=== PATIENT | male | born 1975 | race Two or more races ===

== ENCOUNTER 2024-01-24 12:04 | Inpatient (IN) | payer OTHER, MEDICAID, MEDICARE, SELFPAY ==
[2024-01-24] VITALS (11 sets, daily range): BP systolic 127–165; BP diastolic 42–101; PULSE 60–72; RESP 12–20; TEMP 36.7–36.9; O2SAT 95–100; BMI 30.8; BMI 30.4
--- NOTE | 2024-01-24 | XR_ITS ---
Examination: Central line placement, triple lumen catheter. Ultrasound-guided needle placement left internal jugular vein. Fluoroscopy AP Chest, portable single view Exam date and time: January 24, 2024 1513 hours INDICATIONS: Need for long-term intravenous antibiotic therapy for osteomyelitis. Informed consent provided Technique: A timeout was completed, verifying correct patient, procedure, site, positioning, and special equipment if applicable The patient was placed in a dependent position appropriate for central line placement based on the vein to be cannulated. The patient's left neck was prepped and draped in sterile fashion. Maximum Sterile Barrier Technique used including cap, mask, sterile gown, sterile gloves, and sterile full body drape. If ultrasound technique used: sterile gel and sterile probe covers. Hand Hygiene performed using proper scrub, soap and water, or alcohol-based hand rub. Site right portable apparatus utilized to confirm patency of the left internal jugular vein Utilizing ultrasonographic guidance successful 21-gauge needle puncture into the left internal jugular vein Ultrasound images were recorded and stored. Successful micropuncture with a 21-gauge needle was performed. 0.18 wire guide was introduced into the IVC under fluoroscopic guidance. The wires is then exchanged for a 0.25 J-wire guide placed in the vena cava. The triple lumen catheter dilator is introduced, followed by the catheter in the SVC in proper position under fluoroscopic guidance. Successful aspiration of blood and flushing with heparinized saline is then performed in the 3 venous limbs. The catheter is sutured in place to the skin and a sterile dressing applied. Perfusion to the extremity distal to the point of catheter insertion was checked and found to be adequate The attending radiologist was present for the entire procedure Estimated blood loss2 cc. Findings: Under fluoroscopy, the tip of the catheter is in good position in the vena cava. Portable chest x-ray, post line placement, as ordered. Impression: Successful ultrasound-guided needle placement left internal jugular vein. Successful placement of triple lumen catheter central line, percutaneous. Fluoroscopy 0.2 minute radiation dose 3.41 milligray, 1 spot fluoroscopic chest film. AP portable chest completion procedure demonstrates satisfactory position central line tip SVC. May use central line.
--- NOTE | 2024-01-24 | XR_ITS ---
Examination: Ultrasound-guided needle placement right basilic vein. Dual-lumen central line placement (PICC line) incomplete Fluoroscopy AP chest, portable, single view Right upper extremity venogram Exam date and time:January 24, 2024 1401 hours A timeout was completed verifying correct patient, procedure, site, positioning Informed consent provided Technique: The patient's site was prepped and draped in sterile fashion. Maximum Sterile Barrier Technique used including cap, mask, sterile gown, sterile gloves, and sterile full body drape. If ultrasound technique used: sterile gel and sterile probe covers. Hand Hygiene performed using proper scrub, soap and water, or alcohol-based hand rub. Site right portable apparatus utilized to confirm patency of the right brachial vein Utilizing ultrasonographic guidance successful micropuncture into the right brachial vein. Ultrasound images recorded and stored. 5 cc 1% lidocaine administered for local anesthetic. Successful micropuncture with a 21-gauge needle is performed. 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
--- NOTE | 2024-01-24 12:17 | XR_ITS ---
Examination: Foot, left, 3 views Technique: AP, oblique, lateral views foot, 3 views Date and time of exam: January 24, 2024 at 1233 hours INDICATIONS: Redness swelling and pain involving the first and fifth digits left foot beginning 2 weeks ago, diabetic FINDINGS: Cortical bone destruction and fracture involving the base of the distal phalanx first digit Soft tissue vascular calcification Prominent osteopenia Old fracture calcaneus postop reduction internal fixation IMPRESSION: Osteomyelitis distal phalanx first digit with pathologic fracture, consider MRI foot without contrast follow-up to assess full extent of osteomyelitis
[2024-01-24 12:41] LABS: Basophils # (Auto) 0.1 Thou/mm3 (0.0-0.2); Basophils % (Auto) 1 % (0-2.5); Eosinophils # (Auto) 0.1 Thou/mm3 (0.0-0.5); Eosinophils % (Auto) 1 % (0-10); Hematocrit 46.1 % (41.0-53.0); Hemoglobin 15.1 g/dL (13.5-16.0); Immature Granulocytes % (Auto) 1 % (0-0); Immature Granulocytes Auto 0.05 Thou/mm3 (0.00-0.00); Lymphocytes # (Auto) 1.2 Thou/mm3 (1.0-4.8); Lymphocytes % (Auto) 11 % (10-50); Mean Corpuscular HGB Conc 32.8 g/dl (31.0-37.0); Mean Corpuscular Hemoglobin 26.6 pg (25.0-35.0); Mean Corpuscular Volume 81 fL (80-100); Monocytes # (Auto) 0.8 Thou/mm3 (0.0-0.8); Monocytes % (Auto) 7 % (0-12); Neutrophils # (Auto) 8.9 Thou/mm3 (1.8-7.7); Neutrophils % (Auto) 80 % (37-80); Nucleated Red Blood Cell % 0 /100 WBC (0); Platelet Count 257 Thou/mm3 (140-440); RDW Standard Deviation 39.3 fL (35.1-43.9); Red Blood Count 5.68 Miln/mm3 (4.50-5.90); White Blood Count 11.1 Thou/mm3 (3.8-10.6)
[2024-01-24 12:58] LABS: Alanine Aminotransferase 15 U/L (10-49); Albumin, Serum 4.8 gm/dL (3.5-5.0); Albumin/Globulin Ratio 1.8 (1.2-2.2); Alkaline Phosphatase 88 U/L (46-116); Anion Gap 6 (7-16); Aspartate Amino Transferase 14 U/L (0-34); BUN/Creatinine Ratio 18 Ratio (12-20); Bilirubin,Total 0.4 mg/dL (0.3-1.2); Blood Urea Nitrogen 23 mg/dL (9-23); C-Reactive Protein 1.1 mg/dL (0.0-0.9); Calcium 10.8 mg/dL (8.3-10.6); Calcium (Corrected) 10.8 mg/dL (8.5-10.1); Carbon Dioxide 25.1 mMol/L (20.0-31.0); Chloride 103 mMol/L (98-107); Creatinine (Component) 1.3 mg/dL (0.6-1.3); Estimated Creatinine Clearance 93.3 mL/min (>60); Globulin 2.7 gm/dL (2.3-3.5); Glucose 228 mg/dL (74-106); Osmolality,Calculated 278 (275-295); Potassium 4.2 mMol/L (3.4-5.1); Sodium 134 mMol/L (136-145); Total Protein 7.5 gm/dL (5.7-8.2); eGFR > 60 See Note
--- NOTE | 2024-01-24 13:10 | EDNOTE_ITS ---
Lower Extremity Injury RME/HPI General Chief Complaint: Ankle/Foot Injury Stated Complaint: OSTEOMYELITIS Time Seen by Provider: 01/24/24 12:13 Source: patient and family Arrival date/time: 01/24/24 12:04 This is a 48-year-old male significant past medical history of diabetes, hypertension, chronic kidney disease with a kidney transplant in 2019. Currently not on dialysis. Presents to the emergency department for complaints of redness and swelling and pain involving his first digit of his left foot for approximately 2 weeks. He was sent over by his PCP for possible osteomyelitis which will require admission, for IV treatment. Patient was treated with outpatient antibiotics, without success. He did have a MRI completed on 01/14/2024 describing osteomyelitis to the first phalanx of left foot. Patient reports no fever no chills. Mode of arrival: ambulatory Related Data Home Medications ?Medication ?Instructions ?Recorded ?Confirmed sevelamer carbonate 800 mg tablet 3 tab PO TIDWM #0 tabs 10/12/16 11/15/20 (Renvela) clonidine HCl 0.3 mg tablet 0.3 mg PO TID High Blood Pressure 11/04/16 11/15/20 #0 tabs hydralazine 100 mg tablet 100 mg PO TID High Blood Pressure 11/04/16 11/15/20 #0 tabs hydrocodone 10 mg-acetaminophen 1 tab PO TID PRN Back Pain #0 tabs 11/04/16 11/15/20 325 mg tablet lactulose 10 gram/15 mL oral 30 ml PO HS PRN CONSTIPATION ##180 11/04/16 11/15/20 solution alprazolam 2 mg tablet 0.5 mg PO BID 05/15/18 11/15/20 amlodipine 10 mg tablet 10 mg PO QDAY 08/07/19 11/15/20 Allergies Allergy/AdvReac Type Severity Reaction Status Date / Time atenolol Allergy Severe SWELLING Verified 11/15/20 15:58 FACE AND HANDS, UNCONTROLLED COUGH ibuprofen Allergy Severe RASH, DIZZY Verified 11/15/20 15:58 lisinopril Allergy Severe SWELLING Verified 11/15/20 15:58 IN FACE AND HANDS chlorhexidine AdvReac Mild Rash Verified 11/15/20 15:58 Review of Systems Review of Systems Systems Reviewed: All systems reviewed, normal except as documented Narrative Review of Systems: Gen: No fever, no chills, no weight loss EYES: No discharge, no visual changes, no pain HEENT: No ear pain, no congestion, no sore throat PULM: No shortness of breath, no cough, no congestion CV: No chest pain, no dyspnea on exertion, no palpitations GI: No nausea, no vomiting, no diarrhea, no pain, no constipation : No frequency, no urgency,? no dysuria Musc/skel: No joint pain, no back pain Skin: No rash?, + chronic wound and infection to left great toe. ED Exam Narrative Physical exam: GENERAL APPEARANCE: AxOx4, no obvious distress, nontoxic appearing HEENT: NC, AT. MMM. EOMI, clear conjunctiva,right eye appear to blind, oropharynx clear. NECK: Supple without lymphadenopathy. No stiffness or restricted ROM. HEART: Normal rate and regular rhythm, normal S1/S1, no m/r/g LUNGS: CTAB, moving air well. No crackles or wheezes are heard. ABDOMEN: Soft, nontender, nondistended with good bowel sounds heard. BACK: No midline C/T/L spine pain or deformity, No CVAT, no obvious deformity. EXTREMITIES: Foot is held in plantar felxion, mildly able to flex, -Left great toe, erythema and swelling. MUSCULOSKELETAL: FROM of all major joints, no chest tenderness. NEUROLOGICAL: Grossly nonfocal. Alert and oriented, moving all 4 extremities. Ambulatory. CN not formally tested but appear grossly intact. Skin: Warm and dry without any rash. Course Quality Measures none Orders Category Date Time Status COVID-19 Screening Questionnaire NOW Care 01/24/24 13:26 Active COVID-19 Screening Questionnaire NOW Care 01/24/24 15:14 Active Central Line Insertion NOW Care 01/24/24 15:14 Active Decision to Admit X1 Care 01/24/24 13:26 Active Decision to Admit X1 Care 01/24/24 15:14 Active Insert IV NOW Care 01/24/24 13:08 Active Consult to Infectious Diseases Stat Cons 01/24/24 13:43 Ordered IR PICC line insertion Stat Exams 01/24/24 Taken XR foot comp LT min 3V Stat Exams 01/24/24 12:17 Completed Blood Culture (Lab) Stat Lab 01/24/24 12:30 Received CBC Stat Lab 01/24/24 12:33 Results CMP [Comprehensive Metabolic Panel] Stat Lab 01/24/24 12:33 Completed CRP [C-Reactive Protein] Stat Lab 01/24/24 12:33 Completed Sed Rate (ESR) Stat Lab 01/24/24 12:33 Results Heparin Sod Lock Syr [Hep-Lock 100 UNIT/ML SYR] Med 01/24/24 14:41 Discontinued 500 unit .ROUTE .STK-MED ONE Lidocaine 1% Pf 30 ml [Xylocaine 1% Pf 30 ml] Med 01/24/24 14:41 Discontinued 30 ml .ROUTE .STK-MED ONE Vital Signs Vital signs: Vital Signs Temperature 98.4 F 01/24/24 12:12 Pulse Rate 67 01/24/24 12:12 Respiratory Rate 16 01/24/24 12:12 Blood Pressure 129/65 01/24/24 12:12 Pulse Oximetry (%) 95 01/24/24 12:12 Oxygen Delivery Method Room Air 01/24/24 12:12 Extremity Injury, Lower MDM Narrative MDM Narrative:: This is a 48-year-old male significant past medical history of diabetes, hypertension, chronic kidney disease with a kidney transplant in 2019, currently on immunosuppressant therapy. Presents to the emergency department for complaints of redness and swelling and pain involving his first digit of his left foot for approximately 2 weeks. He was sent over by his PCP for possible osteomyelitis which will require admission, for IV treatment. Patient was treated with outpatient antibiotics, without success. He did have a MRI completed on 01/14/2024 describing osteomyelitis to the first phalanx of left foot. patient reports no fever no chills. Patient labs reviewed BUN and creatinine normal. Mild leukocytosis. Patient's x-rays demonstrates osteomyelitis again. No MRI ordered today Case was discussed with Denae, Case and imaging discussed possible admission for IV antibiotics due to osteomyelitis. After great discussion 1345 we discussed that we will order a PICC line insertion through IR, and a consult with Dr Block infectious disease. Potential discharge if PICC line is inserted and Dr Block agrees. 1500- Dr Block called awaiting for call -Spoke with Dr. Oquendo and recommends doxycycline and Rocephin up to 2 g IV. 1516-received a call from the IR department unable to insert PICC line. Central line-ordered Spoke with Denae, who will accept patient for admission now. Patient data External records reviewed:: [facility] previous records Clinical information provided by:: patient Social determinants that could affect healthcare access:: none Patient has the following chronic illnesses:: Chronic diabetes, chronic kidney disease, gastroparesis, How is presenting disease/condition affected by chronic disease/condition?: exacerbated by Evaluation data The following diagnostics were reviewed and interpreted by me:: lab results and radiology exam(s) Lab and/or radiology exams considered but not ordered:: yes, consider MRI today however patient had MRI done on 01/14/2024 Interpretation Summary: Examination: Foot, left, 3 views Technique: AP, oblique, lateral views foot, 3 views Date and time of exam: January 24, 2024 at 1233 hours INDICATIONS: Redness swelling and pain involving the first and fifth digits left foot beginning 2 weeks ago, diabetic FINDINGS: Cortical bone destruction and fracture involving the base of the distal phalanx first digit Soft tissue vascular calcification Prominent osteopenia Old fracture calcaneus postop reduction internal fixation IMPRESSION: Osteomyelitis distal phalanx first digit with pathologic fracture, consider MRI foot without contrast follow-up to assess full extent of osteomyelitis Examination: MRI left foot, without contrast Date and time of exam: January 13, 2024 at 1214 hrs. Indications: Nonhealing wound right foot dorsal surface second toe nailbed first toe one week diabetes Technique: Multiple axial sagittal and coronal images of the left foot have been obtained with the Siemens high-resolution 1.5 Mery MRI scanner. Images obtained include T2-weighted fat-suppressed sagittal sections, TR 3500, TE 46, T2 weighted coronal fat suppressed images, TR 3050, TE 84, T2-weighted transverse fat suppressed images, TR 3260, TE 63, proton density transverse images, TR 4720 TE 46, and T1 weighted coronal images, TR 560, TE 13. Findings: Cortical bone destruction dorsal base distal phalanx first digit sagittal image 8 with adjacent soft tissue infection Remaining digits intact No soft tissue abscess Extensor flexor tendons intact Impression: Osteomyelitis base distal phalanx first digit Medications / Prescriptions Medications or Prescriptions considered but not ordered:: yes Medication administrations:: Medication Administration History Discontinued Medications Heparin Sodium (Beef Lung) (Heparin Sod Lock Syr 100 Unit/Ml) Confirm Administered Dose 500 unit .ROUTE .STK-MED ONE Stop: 01/24/24 14:42 Lidocaine HCl (Lidocaine Inj Pf 1% 30 Ml Vial) Confirm Administered Dose 30 ml .ROUTE .STK-MED ONE Stop: 01/24/24 14:42 yes Consultations Consultation(s) initiated? (list below): Yes Diagnosis Extremity Injury, Lower Differential Diagnosis: ankle sprain and strain, fracture of femur and other Most likely diagnosis given after review of the tests above:: Osteomyelitis left great toe Admission Indicated Admission indicated?: indicated Admission Request Was there a request for admission?: Yes Admission Attestation Admission request attestation: see above Disposition Plan Disposition Plan: Admit Discharge Plan Plan Patient Disposition: Admit Acute Care w/in Hospital Patient condition on transfer: Stable Prescriptions/Referrals Prescriptions/Med Rec: No Action sevelamer carbonate [Renvela] 800 MG tablet 3 tab PO TIDWM Qty: 0 clonidine HCl 0.3 MG tablet 0.3 mg PO TID Qty: 0 hydralazine 100 mg Tablet 100 mg PO TID Qty: 0 hydrocodone-acetaminophen 10-325 mg Tablet 1 tab PO TID PRN (Reason: Back Pain) Qty: 0 lactulose 10 G/15 ML solution 30 ml PO HS PRN (Reason: CONSTIPATION) Qty: 180 alprazolam 2 mg Tablet 0.5 mg PO BID amlodipine 10 mg Tablet 10 mg PO QDAY Referrals: Silviano Linares MD [Primary Care Provider] - In 1 week Problem List Clinical Impression: Acute osteomyelitis of toe of left foot Patient/Caregiver Discharge Instructions Discharge Activity: activity as tolerated Print Language: Croatian Stand Alone Forms: [employer] Award Info., Patient Portal Info Letter PA/EMERGENCY DEPARTMENT RN Supervising Physician PA/EMERGENCY DEPARTMENT RN Supervising Physician: Dr Cheney
[2024-01-24] MEDS: HEPARIN SOD LOCK SYR 100 UNIT/ML 500 UNIT IV (14:57)
[2024-01-24] MEDS: LIDOCAINE INJ PF 1% 30 ML VIAL 8 ML INFL (15:40)
--- NOTE | 2024-01-24 16:00 | PC.NURSE ---
hand off report give to lilli brumfield. patient alert and oriented [id number]. transfered back to er room 16 via [facility]. dressing is clean dry and intact.
[2024-01-24 16:21] LABS: Sed Rate (ESR) 25 mm/hr (0-15)
--- NOTE | 2024-01-24 16:23 | ESHP_ITS ---
<Statement entered by Vargas Philippe MD - 01/24/24 17:21> Senior Resident Attestation: I supervised/discussed management plan with legal summer intern physician Dr. Bryant, and was involved in the care of this patient. I personally saw and examined the patient and discussed the assessment and plan with the entire medicine team, including my attending. I agree with the assessment and plan as documented. Patient's care was discussed with attending physician, Dr. Nash. Vargas Philippe MD PGY-2. 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 On assessment patient stated that he started having an open wound on his second left toe since 2 weeks ago and he was placed on antibiotics as outpatient, but these failed. Patient stated he has not had any fevers, chills, nausea, vomiting, shortness of breath, or sweats. Given patient's failed outpatient antibiotics as well as his immunocompromise status given immunosuppressants patient will require IV antibiotics. Of note, patient was going to have a PICC line inserted and ID consult for outpatient IV antibiotics, but on PICC line insertion the right subclavian vein was occluded therefore they could not place the PICC line on the right side and eventually central line was placed on the left side. ED course: Initially came in afebrile and normotensive. Initial labs were relevant for mild leukocytosis, hyperglycemia, and elevated CRP. Initial imaging included left foot x-ray which showed osteomyelitis of distal phalanx first digit with pathological fracture. PMH: As above Surgical Hx: Right BKA, cholecystectomy, right kidney transplant, left Achilles tendon repair with screw, right eye prosthetic Social Hx: Denies any alcohol, smoking, or drugs Allergies: Ibuprofen atenolol Meds: Prednisone 5 mg daily, tacrolimus 1.5 mg in the morning and 2 mg at night, mycophenolate 750 mg twice daily, clonidine 0.1 mg 3 times daily, hydralazine 100 mg 3 times daily, carvedilol 25 mg twice daily, nifedipine 90 mg daily, and NovoLog as per patient. Reconciliation pending Review of Systems Review of Systems Narrative Review of Systems: Constitutional: Denies sweats, Denies weight loss/gain, Denies fever, Denies chills. HEENT: Denies hearing loss, Denies ear pain, Denies postnasal drip, Denies double vision, Denies blurry vision. Respiratory: Denies shortness of breath, Denies cough, Denies wheezing. Cardiovascular: Denies chest pain, Denies palpitations, Denies sudden loss of consciousness. GI: Denies blood in stool, Denies constipation, Denies abdominal pain, Denies difficulty swallowing, Denies nausea or vomit. : Denies urinary incontinence, Denies pain while urinating, Denies increased urinary frequency. MSK: Denies joint pain, Admits joint swelling, Denies numbness. Skin: Denies rash, Denies itching, Denies easy bruising. Neuro: Denies headaches, Denies dizziness, Denies seizures. Past Medical History Past Medical History NEUROLOGIC: Positive Migraine CARDIAC: Positive Cardiac Disorders and Hypertension RESPIRATORY: Positive Sleep Apnea GASTROINTESTINAL: Positive Gastrointestinal Disorders, Pancreatitis, Gall Bladder Disease, Gastrointestinal Bleed and Gastroesophageal Reflux Disease GENITOURINARY: Positive Genitourinary Disorders, Renal Disease and Dialysis MUSCULOSKELETAL: Positive Musculoskeletal Disorders, Muscular Dystrophy, Arthritis, Scoliosis and Osteomyelitis ENT: Positive Glaucoma, Blind and Eye Prosthesis ENDOCRINE: Positive Endocrine Disorders and Diabetes Mellitus Type 2 HEMATOLOGIC: Positive Blood Disorders and Anemia PSYCHO/SOCIAL: Positive Depression and Anxiety OTHER HISTORY: Positive Hospitalization and Chicken Pox Family History FAMILY HISTORY: Positive Family Cardiac Disorders Surgical History SURGICAL: Positive Amputation Social History SMOKING STATUS: Never smoker SECOND HAND EXPOSURE: No SUBSTANCE USE: does not use Exam Vital Signs Temp Pulse Resp BP Pulse Ox O2 Del Method O2 Flow Rate 98.0 F 60 19 133/42 H 96 Room Air 3 01/24/24 14:36 01/24/24 15:49 01/24/24 15:49 01/24/24 15:49 01/24/24 15:49 01/24/24 15:49 01/24/24 15:40 Narrative Exam General: A/O x3, no acute distress, well-nourished, well-developed Eyes: R prosthetic eye, L eye reactive to light, EOMI, vision grossly intact. Ears: No ear pain, no ear discharge, Hearing grossly intact. Nose: No nasal discharge. Mouth/Throat: Dry mucous membranes, no redness, no lesions. Neck: Neck supple, non-tender, no cervical lymphadenopathy. Lungs: Clear JUSTINE to auscultation and percussion, No accessory muscle use. Cardio: Normal S1/S2, regular rhythm, no murmurs, no JVD. Abdomen: Soft, non-tender, no palpable masses, peristalsis present, no guarding or rebound. Extremities: R BKA, no peripheral edema , non-tender, L peripheral pulse present. L 1 toe swollen and discolored, L 2nd toe with dry wound in dorsal aspect. Skin: No rashes, no lesions, warm to touch. Neuro: No focal neurological deficits. motor and sensory intact. Psych: Cooperative, appropriate mood and effect. Results: Labs 01/25/24 04:59 01/25/24 04:59 Labs: Short CBC 01/24/24 Range/Units 12:33 WBC 11.1 H (3.8-10.6) Thou/mm3 Hgb 15.1 (13.5-16.0) g/dL Hct 46.1 (41.0-53.0) % Plt Count 257 (140-440) Thou/mm3 BMP 01/24/24 12:33 Sodium 134 L Potassium 4.2 Chloride 103 Carbon Dioxide 25.1 BUN 23 Creatinine 1.3 Glucose 228 H Calcium 10.8 H Liver Function 01/24/24 Range/Units 12:33 Total Bilirubin 0.4 (0.3-1.2) mg/dL AST 14 (0-34) U/L ALT 15 (10-49) U/L Alkaline Phosphatase 88 (46-116) U/L Albumin 4.8 (3.5-5.0) gm/dL Quality Measures Quality Measures none Medications Home Medications and Allergies Home Medications ?Medication ?Instructions ?Recorded ?Confirmed ?Type clonidine HCl 0.3 mg tablet 0.1 mg PO TID High Blood Pressure 11/04/16 01/24/24 History #0 tabs hydralazine 100 mg tablet 50 mg PO TID High Blood Pressure 11/04/16 01/24/24 History #0 tabs hydrocodone 10 mg-acetaminophen 1 tab PO TID PRN Back Pain #0 tabs 11/04/16 01/24/24 History 325 mg tablet alprazolam 0.5 mg tablet 0.5 mg PO TID PRN Anxiety 01/24/24 01/24/24 History carvedilol 25 mg tablet 25 mg PO BID 01/24/24 01/24/24 History mycophenolate mofetil 250 mg 250 mg PO BID 01/24/24 01/24/24 History capsule nifedipine 90 mg tablet,extended 90 mg PO QDAY 01/24/24 01/24/24 History release prednisone 5 mg tablet 5 mg PO QDAY 01/24/24 01/24/24 History tacrolimus 0.5 mg capsule, 0.5 mg PO QDAY 01/24/24 01/24/24 History immediate-release tacrolimus 1 mg capsule, 1 mg PO BID 01/24/24 01/24/24 History immediate-release Allergies Allergy/AdvReac Type Severity Reaction Status Date / Time atenolol Allergy Severe SWELLING Verified 11/15/20 15:58 FACE AND HANDS, UNCONTROLLED COUGH ibuprofen Allergy Severe RASH, DIZZY Verified 11/15/20 15:58 lisinopril Allergy Severe SWELLING Verified 11/15/20 15:58 IN FACE AND HANDS chlorhexidine AdvReac Mild Rash Verified 11/15/20 15:58 Visit Medications Acetaminophen (Acetaminophen 325 Mg Tablet) 650 mg PO Q6H PRN PRN Reason: Fever >101.5 Stop: 02/23/24 15:44 Acetaminophen (Acetaminophen 325 Mg Tablet) 650 mg PO Q6H PRN PRN Reason: PAIN SCALE 1-3 (mild Stop: 02/23/24 15:44 Hydrocodone Bitart/Acetaminophen (Hydrocodone/Apap 5/325 Tablet) 1 tab PO Q4HR PRN PRN Reason: PAIN SCALE 4-6 (Moderate Stop: 01/29/24 15:44 Dextrose (Dextrose 50%-Water Inj 50 Ml Syringe) 25 ml IV Q15MIN PRN PRN Reason: BG 50-70 responsive npo pt Stop: 02/23/24 15:50 Dextrose (Dextrose 50%-Water Inj 50 Ml Syringe) 50 ml IV Q15MIN PRN PRN Reason: BG <50 OR BG <70 & pt unresponsive Stop: 02/23/24 15:50 Doxycycline Hyclate (Doxycycline 100 Mg Tablet) 100 mg PO BID DIO Stop: 01/31/24 15:59 Glucagon (Glucagon Inj 1 Mg Vial) 1 mg IM Q15MIN PRN PRN Reason: BG <70, and no IV access Heparin Sodium (Porcine) (Heparin Sod Inj 5000 Unit/Ml Vial) 5,000 unit SC Q12H [facility] Stop: 02/07/24 15:44 Ceftriaxone Sodium/Dextrose (Rocephin/D5w 1gm Iv Premix) 50 mls @ 100 mls/hr IV QDAY DIO Stop: 01/31/24 15:47 Insulin Human Lispro (Insulin Lispro (Admelog) 1 Unit/0.01 Ml Unit) 0 unit SC ACHS DIO; Protocol Stop: 02/23/24 16:59 Discontinued Medications Heparin Sodium (Beef Lung) (Heparin Sod Lock Syr 100 Unit/Ml) 500 unit IV X1 ONE Stop: 01/24/24 14:31 Last Admin: 01/24/24 14:57 Dose: 500 unit Lidocaine HCl (Lidocaine Inj Pf 1% 30 Ml Vial) 8 ml INFL X1 ONE Stop: 01/24/24 14:31 Last Admin: 01/24/24 15:40 Dose: 8 ml Assessment & Plan Plan 48-year-old male with past medical history of right eye glaucoma s/p prosthetic eye, DM2, hypertension, 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 #Osteomyelitis of distal phalanx of first digit left foot, failed outpatient antibiotics #Diabetic foot #Leukocytosis #Hx DM 2 #Hx right BKA secondary to osteomyelitis of right foot ?Patient has been experiencing an open wound on his left second toe and swelling and redness in his first left toe as well for the past 2 weeks. ?Patient failed outpatient antibiotics ?Left foot x-ray showed osteomyelitis of distal phalanx of first digit ?WBC 11.1 ?L central line in place Plan: ?Continue ceftriaxone 1 g daily and doxycycline 100 mg twice daily [01/24/2024?] ?Blood cultures ordered ?ISS ?Accu-Cheks and hypoglycemia protocol ordered ?ID consulted, appreciate recommendations ?Will consider consulting general surgery ?Will continue to monitor #CKD s/p right kidney transplant #Hx of right kidney transplant #Immunocompromised ?Patient has a history of CKD status post kidney transplant 2019 ?Patient is on immunosuppressive therapy therefore he is immunocompromise Plan: ?Will restart patient's immunosuppressive therapy including prednisone 5 mg daily, tacrolimus 1.5 mg a.m. and 2 mg at bedtime, and mycophenolate 750 twice daily ?Avoid nephrotoxic agents ?Renally dose medications ?Nephrology consulted, appreciate recommendations ?Will continue to monitor #Hx of hypertension ?Patient blood pressure on admission was mildly elevated at 155/86 Plan: ?Will restart patient's home medications including clonidine 0.1 mg 3 times daily, hydralazine 100 mg 3 times daily, carvedilol 25 mg twice daily, nifedipine 90 mg daily. #Hx of glaucoma s/p prosthetic eye ?Patient's right eye is prosthetic eye Disposition: Patient admitted to telemetry. Diet: renal carb consistent low GI prophylaxis:not indicated DVT prophylaxis: heparin sc Code: Full code Case disclosed with Attending Dr. Nash and My senior Dr. Philippe PGY2. Leo Anderson PGY1 Attending Provider Attestation/Addendum 48-year-old male with type 2 diabetes mellitus, hypertension, hyperlipidemia right BKA, CKD status post kidney transplant back in 2019 on immunosuppressive agents who presented to the ER on 01/24/2024 from primary care physician for left toe swelling found to have osteomyelitis plan to line placement and IV antibiotic therapy. Will also consult infectious disease. I reviewed above note and agree with findings and plans. I have also personally examined the patient with medicine team and went over assessment and plan with medical team including legal summer intern and resident physician.
--- NOTE | 2024-01-24 17:48 | PC.CC ---
Patient is a 48 year-old male who presents to the hospital for osteomyelitis. Betty SORIANO made face to face contact with the patient. ASW introduced self, role, and reason for visit. Patient appeared alert and oriented to self, location, and situation. Patient was pleasant and engaged in assessment. Patient confirmed information on demographics and reports he lives at home with his daughter, Jose Jane . Patient reports prior to being admitted to the hospital he was able to complete his own ADLs and Ambulate Independently with the assistance of his boot. Patient reports he does not use any other DME. Per patient, his daughter is his primary retail wireless sales representative that helps take care of him. Patient receives primary care with Dr. Linares and uses [facility] for his prescription medication. Upon discharge patient plans to return home with his daughter. manager field services to remain available for any discharge needs.
[2024-01-24] MEDS: cefTRIAXone/D5w 1gm IV premix 50 ML IV (18:19)
[2024-01-24] MEDS: DOXYCYCLINE 100 MG TABLET PO (18:22)
[2024-01-24] MEDS: HEPARIN SOD INJ 5000 UNIT/ML VIAL SC (18:22)
[2024-01-24] MEDS: MYCOPHENOLATE 250 MG CAPSULE (NON-FORMULARY) 750 MG PO (20:55)
[2024-01-24] MEDS: TACROLIMUS 1 MG CAPSULE (NON-FORMULARY) 2 MG PO (20:57)
[2024-01-24] MEDS: INSULIN LISPRO (AdmeLOG) 1 UNIT/0.01 ML UNIT SC (20:59)
[2024-01-24] MEDS: HYDROcodone/APAP 5/325 TABLET 1 TAB PO (21:09)
[2024-01-24] MEDS: cloNIDine HCL 0.1 MG TABLET PO (21:13)
[2024-01-24] MEDS: hydrALAZINE HCL 25 MG TABLET 100 MG PO (21:14)
[2024-01-25] VITALS (12 sets, daily range): BP systolic 116–163; BP diastolic 63–83; PULSE 56–94; RESP 14–18; TEMP 36.2–36.8; O2SAT 93–98; BMI 30.4
[2024-01-25] MEDS: cloNIDine HCL 0.1 MG TABLET PO ×3 (05:14→21:01)
[2024-01-25] MEDS: hydrALAZINE HCL 25 MG TABLET 100 MG PO ×3 (05:14→21:01)
[2024-01-25 06:01] LABS: Basophils # (Auto) 0.1 Thou/mm3 (0.0-0.2); Basophils % (Auto) 1 % (0-2.5); Eosinophils # (Auto) 0.1 Thou/mm3 (0.0-0.5); Eosinophils % (Auto) 2 % (0-10); Hematocrit 43.2 % (41.0-53.0); Immature Granulocytes % (Auto) 0 % (0-0); Immature Granulocytes Auto 0.03 Thou/mm3 (0.00-0.00); Lymphocytes # (Auto) 1.7 Thou/mm3 (1.0-4.8); Lymphocytes % (Auto) 24 % (10-50); Mean Corpuscular HGB Conc 32.4 g/dl (31.0-37.0); Mean Corpuscular Hemoglobin 26.6 pg (25.0-35.0); Mean Corpuscular Volume 82 fL (80-100); Monocytes # (Auto) 0.9 Thou/mm3 (0.0-0.8); Monocytes % (Auto) 12 % (0-12); Neutrophils # (Auto) 4.5 Thou/mm3 (1.8-7.7); Neutrophils % (Auto) 61 % (37-80); Nucleated Red Blood Cell % 0 /100 WBC (0); Platelet Count 233 Thou/mm3 (140-440); RDW Standard Deviation 39.8 fL (35.1-43.9); Red Blood Count 5.26 Miln/mm3 (4.50-5.90); White Blood Count 7.3 Thou/mm3 (3.8-10.6)
[2024-01-25 06:35] LABS: Glucose Estimated Average 189 mg/dL (80-131); Hemoglobin A1C 8.2 % Hgb (4.8-6.0)
[2024-01-25 06:42] LABS: Anion Gap 7 (7-16); BUN/Creatinine Ratio 17 Ratio (12-20); Blood Urea Nitrogen 19 mg/dL (9-23); Calcium 10.3 mg/dL (8.3-10.6); Carbon Dioxide 23.2 mMol/L (20.0-31.0); Chloride 107 mMol/L (98-107); Creatinine (Component) 1.1 mg/dL (0.6-1.3); Estimated Creatinine Clearance 109.6 mL/min (>60); Glucose 100 mg/dL (74-106); Magnesium 1.6 mg/dL (1.6-2.6); Osmolality,Calculated 276 (275-295); Potassium 3.7 mMol/L (3.4-5.1); Sodium 137 mMol/L (136-145); eGFR > 60 See Note
[2024-01-25] MEDS: NIFEdipine XL 30 MG TABCR 90 MG PO (09:13)
[2024-01-25] MEDS: predniSONE 5 MG TABLET PO (09:14)
[2024-01-25] MEDS: MYCOPHENOLATE 250 MG CAPSULE (NON-FORMULARY) 750 MG PO ×2 (09:23→20:58)
[2024-01-25] MEDS: DOXYCYCLINE 100 MG TABLET PO ×2 (09:23→20:57)
[2024-01-25] MEDS: cefTRIAXone/D5w 1gm IV premix 50 ML IV (09:39)
--- NOTE | 2024-01-25 10:13 | PC.SS ---
Rounding: Pending ID reccs, HH TX RN, Joseph made aware of HH, pending orders
--- NOTE | 2024-01-25 11:22 | PC.CM ---
Patient needs referral for IV ABX. Waiting for orders. Needs to send referral.
[2024-01-25] MEDS: INSULIN LISPRO (AdmeLOG) 1 UNIT/0.01 ML UNIT SC ×3 (11:27→20:57)
--- NOTE | 2024-01-25 13:50 | ESPR_ITS ---
Documentation for date of: 01/25/24 Subjective Subjective Interval history: Patient was seen at bedside this morning. No overnight events. Spoke with radiologist who stated that he was not able to place the PICC line as his subclavian jugular vein was obstructive therefore replaced on the left central line, but given that patient cannot be discharged with central line and patient is not a candidate for PICC line given his fistula on the left upper extremity and right subclavian vein obstructive we will wait for ID recommendations on p.o. antibiotics for osteomyelitis. No other complaints at this time. Exam Vital Signs Temp Pulse Resp BP Pulse Ox O2 Del Method O2 Flow Rate 97.1 F 56 L 14 150/65 H 96 Room Air 3 01/25/24 11:48 01/25/24 11:48 01/25/24 11:48 01/25/24 11:48 01/25/24 11:48 01/25/24 11:48 01/24/24 15:40 Narrative Exam General: A/O x3, no acute distress, well-nourished, well-developed Eyes: R prosthetic eye, L eye reactive to light, EOMI, vision grossly intact. Ears: No ear pain, no ear discharge, Hearing grossly intact. Nose: No nasal discharge. Mouth/Throat: Dry mucous membranes, no redness, no lesions. Neck: Neck supple, non-tender, no cervical lymphadenopathy. Lungs: Clear JUSTINE to auscultation and percussion, No accessory muscle use. Cardio: Normal S1/S2, regular rhythm, no murmurs, no JVD. Abdomen: Soft, non-tender, no palpable masses, peristalsis present, no guarding or rebound. Extremities: R BKA, no peripheral edema , non-tender, L peripheral pulse present. L 1 toe swollen and discolored, L 2nd toe with dry wound in dorsal aspect. L UE fistula Skin: No rashes, no lesions, warm to touch. Neuro: No focal neurological deficits. motor and sensory intact. Psych: Cooperative, appropriate mood and effect. Objective Labs 01/25/24 04:59 01/25/24 04:59 Labs: Laboratory Results - last 24 hr 01/24/24 01/25/24 12:33 04:59 WBC 7.3 RBC 5.26 Hgb 14.0 Hct 43.2 MCV 82 MCH 26.6 MCHC 32.4 RDW Std Deviation 39.8 Plt Count 233 Neut % (Auto) 61 Lymph % (Auto) 24 [place] % (Auto) 12 Eos % (Auto) 2 Baso % (Auto) 1 Neut # (Auto) 4.5 Lymph # (Auto) 1.7 [place] # (Auto) 0.9 H Eos # (Auto) 0.1 Baso # (Auto) 0.1 Immature Gran # (Auto) 0.03 H Absolute Nucleated RBC 0.00 Immature Gran % 0 Nucleated RBC % 0 ESR 25 H Sodium 137 Potassium 3.7 D Chloride 107 Carbon Dioxide 23.2 Anion Gap 7 BUN 19 Creatinine 1.1 Estim Creat Clear Calc 109.6 eGFR > 60 BUN/Creatinine Ratio [address] Glu mg/dL 189 H Hemoglobin A1c 8.2 H Calculated Osmolality 276 Calcium 10.3 Phosphorus 3.0 Magnesium 1.6 Quality Measures Quality Measures none Assessment & Plan Assessment Current Active Medications: Generic Name Dose Route Start Last Admin Trade Name Freq PRN Reason Stop Dose Admin Acetaminophen 650 mg 01/24/24 15:45 Acetaminophen 325 Mg Tablet PO 02/23/24 15:44 Q6H PRN Fever >101.5 Acetaminophen 650 mg 01/24/24 15:45 Acetaminophen 325 Mg Tablet PO 02/23/24 15:44 Q6H PRN PAIN SCALE 1-3 (mild Hydrocodone Bitart/Acetaminophen 1 tab 01/24/24 15:45 01/24/24 21:09 Hydrocodone/Apap 5/325 Tablet PO 01/29/24 15:44 1 tab Q4HR PRN Administration PAIN SCALE 4-6 (Moderate Clonidine 0.1 mg 01/24/24 22:00 01/25/24 05:14 Clonidine Hcl 0.1 Mg Tablet PO 02/23/24 21:59 0.1 mg TID DIO Administration Dextrose 25 ml 01/24/24 15:51 Dextrose 50%-Water Inj 50 Ml Syringe IV 02/23/24 15:50 Q15MIN PRN BG 50-70 responsive npo pt Dextrose 50 ml 01/24/24 15:51 Dextrose 50%-Water Inj 50 Ml Syringe IV 02/23/24 15:50 Q15MIN PRN BG <50 OR BG <70 & pt unresponsive Doxycycline Hyclate 100 mg 01/24/24 16:00 01/25/24 09:23 Doxycycline 100 Mg Tablet PO 01/31/24 15:59 100 mg BID DIO Administration Glucagon 1 mg 01/24/24 15:51 Glucagon Inj 1 Mg Vial IM Q15MIN PRN BG <70, and no IV access Heparin Sodium (Porcine) 5,000 unit 01/24/24 15:45 01/25/24 03:19 Heparin Sod Inj 5000 Unit/Ml Vial SC 02/07/24 15:44 Not Given Q12H DIO Hydralazine HCl 100 mg 01/24/24 22:00 01/25/24 05:14 Hydralazine Hcl 25 Mg Tablet PO 02/23/24 21:59 100 mg TID DIO Administration Ceftriaxone Sodium/Dextrose 50 mls @ 100 mls/hr 01/24/24 15:48 01/25/24 09:39 Rocephin/D5w 1gm Iv Premix IV 01/31/24 15:47 100 mls/hr QDAY DIO Administration Insulin Human Lispro 0 unit 01/24/24 17:00 01/25/24 11:27 Insulin Lispro (Admelog) 1 Unit/0.01 Ml Unit SC 02/23/24 16:59 2 unit ACHS DIO Administration Protocol Mycophenolate Mofetil 750 mg 01/25/24 09:00 01/25/24 09:23 Mycophenolate 250 Mg Capsule (Non-Formulary) PO 02/24/24 08:59 750 mg BID DIO Administration Nifedipine 90 mg 01/25/24 09:00 01/25/24 09:13 Nifedipine Xl 30 Mg Tabcr PO 02/24/24 08:59 90 mg QDAY DIO Administration Prednisone 5 mg 01/25/24 09:00 01/25/24 09:14 Prednisone 5 Mg Tablet PO 02/24/24 08:59 5 mg QAM DIO Administration Tacrolimus 2 mg 01/25/24 21:00 Tacrolimus 1 Mg Capsule (Non-Formulary) PO 02/24/24 20:59 HS DIO Tacrolimus 1.5 mg 01/25/24 09:30 01/25/24 09:27 Tacrolimus 0.5 Mg Capsule (Non-Formulary) PO 02/24/24 09:29 Not Given QAM DIO Plan 48-year-old male with past medical history of right eye glaucoma s/p prosthetic eye, DM2, hypertension, right BKA secondary to osteomyelitis of right foot and CKD s/p kidney transplant 2020 and on immunosuppressive therapy was admitted to the hospital on 01/24/2024 for osteomyelitis of distal phalanx of first digit left foot. #Osteomyelitis of distal phalanx of first digit left foot, failed outpatient antibiotics #Diabetic foot #Leukocytosis #Hx DM 2 #Hx right BKA secondary to osteomyelitis of right foot ?Patient has been experiencing an open wound on his left second toe and swelling and redness in his first left toe as well for the past 2 weeks. ?Patient failed outpatient antibiotics ?Left foot x-ray showed osteomyelitis of distal phalanx of first digit ?WBC 7.3 ?L central line in place Plan: ?Continue ceftriaxone 1 g daily and doxycycline 100 mg twice daily [01/24/2024?] ?Blood cultures ordered ?ISS ?Accu-Cheks and hypoglycemia protocol ordered ?ID consulted, appreciate recommendations ?Will consider consulting general surgery ?Will continue to monitor #CKD s/p right kidney transplant #Hx of right kidney transplant #Immunocompromised ?Patient has a history of CKD status post kidney transplant 2019 ?Patient is on immunosuppressive therapy therefore he is immunocompromise Plan: ?Will restart patient's immunosuppressive therapy including prednisone 5 mg daily, tacrolimus 1.5 mg a.m. and 2 mg at bedtime, and mycophenolate 750 twice daily ?Avoid nephrotoxic agents ?Renally dose medications ?Nephrology consulted, appreciate recommendations ?Will continue to monitor #Hx of hypertension ?Patient blood pressure on admission was mildly elevated at 155/86 Plan: ?Will restart patient's home medications including clonidine 0.1 mg 3 times daily, hydralazine 100 mg 3 times daily, carvedilol 25 mg twice daily, nifedipine 90 mg daily. #Hx of glaucoma s/p prosthetic eye ?Patient's right eye is prosthetic eye Disposition: Patient seen in med surg, pending ID recommendation in Abx. Diet: renal carb consistent low GI prophylaxis:not indicated DVT prophylaxis: heparin sc Code: Full code Case disclosed with Attending Dr. Nash and My senior Dr. Philippe PGY2. Leo Anderson PGY1 Attending Provider Attestation/Addendum 48-year-old male with type 2 diabetes mellitus, hypertension, hyperlipidemia right BKA, CKD status post kidney transplant back in 2019 on immunosuppressive agents who presented to the ER on 01/24/2024 from primary care physician for left toe swelling found to have osteomyelitis plan to line placement and IV antibiotic therapy. Will also consult infectious disease. I reviewed above note and agree with findings and plans. I have also personally examined the patient with medicine team and went over assessment and plan with medical team including fashion buying internship and resident physician.
[2024-01-25] MEDS: TACROLIMUS 1 MG CAPSULE (NON-FORMULARY) 2 MG PO (20:59)
[2024-01-26] VITALS (12 sets, daily range): BP systolic 143–172; BP diastolic 57–90; PULSE 57–70; RESP 14–18; TEMP 36–36.6; O2SAT 94–98
[2024-01-26] MEDS: cloNIDine HCL 0.1 MG TABLET PO ×3 (05:19→21:01)
[2024-01-26] MEDS: hydrALAZINE HCL 25 MG TABLET 100 MG PO ×3 (05:19→21:02)
[2024-01-26 06:01] LABS: Basophils % (Auto) 1 % (0-2.5); Eosinophils # (Auto) 0.2 Thou/mm3 (0.0-0.5); Eosinophils % (Auto) 2 % (0-10); Hematocrit 42.7 % (41.0-53.0); Hemoglobin 13.9 g/dL (13.5-16.0); Immature Granulocytes % (Auto) 0 % (0-0); Immature Granulocytes Auto 0.03 Thou/mm3 (0.00-0.00); Lymphocytes # (Auto) 1.6 Thou/mm3 (1.0-4.8); Lymphocytes % (Auto) 22 % (10-50); Mean Corpuscular HGB Conc 32.6 g/dl (31.0-37.0); Mean Corpuscular Hemoglobin 26.5 pg (25.0-35.0); Mean Corpuscular Volume 81 fL (80-100); Monocytes % (Auto) 14 % (0-12); Neutrophils # (Auto) 4.6 Thou/mm3 (1.8-7.7); Neutrophils % (Auto) 62 % (37-80); Nucleated Red Blood Cell % 0 /100 WBC (0); Platelet Count 201 Thou/mm3 (140-440); Red Blood Count 5.25 Miln/mm3 (4.50-5.90); White Blood Count 7.4 Thou/mm3 (3.8-10.6)
[2024-01-26 06:20] LABS: Anion Gap 7 (7-16); BUN/Creatinine Ratio 15 Ratio (12-20); Blood Urea Nitrogen 18 mg/dL (9-23); Calcium 10.3 mg/dL (8.3-10.6); Carbon Dioxide 23.5 mMol/L (20.0-31.0); Chloride 107 mMol/L (98-107); Creatinine (Component) 1.2 mg/dL (0.6-1.3); Estimated Creatinine Clearance 100.5 mL/min (>60); Glucose 201 mg/dL (74-106); Osmolality,Calculated 281 (275-295); Potassium 4.1 mMol/L (3.4-5.1); Sodium 137 mMol/L (136-145); eGFR > 60 See Note
[2024-01-26] MEDS: INSULIN LISPRO (AdmeLOG) 1 UNIT/0.01 ML UNIT SC ×4 (07:48→21:00)
[2024-01-26] MEDS: NIFEdipine XL 30 MG TABCR 90 MG PO (09:00)
--- NOTE | 2024-01-26 09:10 | PD.IDPROG ---
Subjective Subjective Interval history: po rx problematic. the study referenced gave po rx after iv rx to all pts and all had good micro and if they went to po, had a good response to rx Exam Vital Signs Temp Pulse Resp BP Pulse Ox O2 Del Method O2 Flow Rate 97.0 F 57 L 14 143/73 H 94 L Room Air 3 01/26/24 08:00 01/26/24 08:00 01/26/24 08:00 01/26/24 08:00 01/26/24 08:00 01/26/24 08:00 01/24/24 15:40 Narrative Exam see dictation. Objective - Internal Medicine Labs 01/26/24 05:28 01/26/24 05:28 Labs: Laboratory Results - last 24 hr 01/26/24 05:28 WBC 7.4 RBC 5.25 Hgb 13.9 Hct 42.7 MCV 81 MCH 26.5 MCHC 32.6 RDW Std Deviation 39.0 Plt Count 201 D Neut % (Auto) 62 Lymph % (Auto) 22 [place] % (Auto) 14 H Eos % (Auto) 2 Baso % (Auto) 1 Neut # (Auto) 4.6 Lymph # (Auto) 1.6 [place] # (Auto) 1.0 H Eos # (Auto) 0.2 Baso # (Auto) 0.0 Immature Gran # (Auto) 0.03 H Absolute Nucleated RBC 0.00 Immature Gran % 0 Nucleated RBC % 0 Sodium 137 Potassium 4.1 Chloride 107 Carbon Dioxide 23.5 Anion Gap 7 BUN 18 Creatinine 1.2 Estim Creat Clear Calc 100.5 eGFR > 60 BUN/Creatinine Ratio 15 Glucose 201 H D Calculated Osmolality 281 Calcium 10.3 Assessment & Plan A&P Narrative osteo of foot dm II be sure that circulation ok po rx only an option with good micro and a good response to rx. will f/u monday rocephin 2 gm iv daily and po doxy 100 bid recommended for now. Time Spent With Patient Time: Total time spent is greater than 50% in coordination of care (as documented) at patient's floor/unit and/or counseling patient:
[2024-01-26] MEDS: DOXYCYCLINE 100 MG TABLET PO ×2 (09:19→21:00)
[2024-01-26] MEDS: MYCOPHENOLATE 250 MG CAPSULE (NON-FORMULARY) 750 MG PO ×2 (09:20→21:00)
[2024-01-26] MEDS: predniSONE 5 MG TABLET PO (09:21)
[2024-01-26] MEDS: TACROLIMUS 0.5 MG CAPSULE (NON-FORMULARY) 1.5 MG PO (09:22)
[2024-01-26] MEDS: cefTRIAXone/D5w 1gm IV premix 50 ML IV (09:54)
--- NOTE | 2024-01-26 10:07 | XR_ITS ---
Examination: Arterial duplex lower extremity unilateral left leg Date and time of exam: January 26, 2024 1059 hours INDICATIONS: Diagnosis osteomyelitis left foot, distal phalanx first digit on plain films foot January 24, 2024, diabetic history Findings: Duplex sonographic imaging of the left lower extremity arteries using B-mode/Ramirez scale imaging and Doppler spectral analysis and color flow. Left common femoral artery demonstrates triphasic flow. Left superficial femoral artery demonstrates triphasic flow. Left popliteal artery demonstrates triphasic flow. Left posterior tibial artery demonstrated triphasic flow Left dorsalis pedis artery demonstrated monophasic flow Impression: Abnormal monophasic flow in the dorsalis pedis artery, consistent with small vessel arterial disease Consider correlation with CTA abdominal aorta iliofemoral runoff post intravenous contrast
--- NOTE | 2024-01-26 11:56 | ESPR_ITS ---
<Statement entered by Vargas Philippe MD - 01/26/24 15:23> Senior Resident Attestation: I supervised/discussed management plan with email marketing intern physician Dr. Bryant, and was involved in the care of this patient. I personally saw and examined the patient and discussed the assessment and plan with the entire medicine team, including my attending. I agree with the assessment and plan as documented. Patient's care was discussed with attending physician, Dr. Alejandro. Vargas Philippe MD PGY-2. Documentation for date of: 01/26/24 Subjective Subjective Interval history: Patient was at bedside this morning. No overnight events. Infectious disease specialist saw the patient this morning and stated that he should be on IV antibiotics for now and that he should also have his arterial blood flow of the left lower extremity examined. Left lower extremity arterial duplex was ordered and general surgery was also consulted (Dr. Maldonado) for evaluation of possible amputation. No other complaints at this time. Exam Vital Signs Temp Pulse Resp BP Pulse Ox O2 Del Method O2 Flow Rate 97.0 F 57 L 14 155/81 H 94 L Room Air 3 01/26/24 08:00 01/26/24 09:00 01/26/24 08:00 01/26/24 09:00 01/26/24 08:00 01/26/24 08:00 01/24/24 15:40 Narrative Exam General: A/O x3, no acute distress, well-nourished, well-developed Eyes: R prosthetic eye, L eye reactive to light, EOMI, vision grossly intact. Ears: No ear pain, no ear discharge, Hearing grossly intact. Nose: No nasal discharge. Mouth/Throat: Dry mucous membranes, no redness, no lesions. Neck: Neck supple, non-tender, no cervical lymphadenopathy. Lungs: Clear JUSTINE to auscultation and percussion, No accessory muscle use. Cardio: Normal S1/S2, regular rhythm, no murmurs, no JVD. Abdomen: Soft, non-tender, no palpable masses, peristalsis present, no guarding or rebound. Extremities: R BKA, no peripheral edema , non-tender, L peripheral pulse present. L 1 toe discolored, L 2nd toe with dry wound in dorsal aspect. L UE fistula Skin: No rashes, no lesions, warm to touch. Neuro: No focal neurological deficits. motor and sensory intact. Psych: Cooperative, appropriate mood and effect. Objective Labs 01/27/24 05:15 01/27/24 05:15 Labs: Laboratory Results - last 24 hr 01/26/24 05:28 WBC 7.4 RBC 5.25 Hgb 13.9 Hct 42.7 MCV 81 MCH 26.5 MCHC 32.6 RDW Std Deviation 39.0 Plt Count 201 D Neut % (Auto) 62 Lymph % (Auto) 22 [place] % (Auto) 14 H Eos % (Auto) 2 Baso % (Auto) 1 Neut # (Auto) 4.6 Lymph # (Auto) 1.6 [place] # (Auto) 1.0 H Eos # (Auto) 0.2 Baso # (Auto) 0.0 Immature Gran # (Auto) 0.03 H Absolute Nucleated RBC 0.00 Immature Gran % 0 Nucleated RBC % 0 Sodium 137 Potassium 4.1 Chloride 107 Carbon Dioxide 23.5 Anion Gap 7 BUN 18 Creatinine 1.2 Estim Creat Clear Calc 100.5 eGFR > 60 BUN/Creatinine Ratio 15 Glucose 201 H D Calculated Osmolality 281 Calcium 10.3 Quality Measures Quality Measures none Assessment & Plan Assessment Current Active Medications: Generic Name Dose Route Start Last Admin Trade Name Freq PRN Reason Stop Dose Admin Acetaminophen 650 mg 01/24/24 15:45 Acetaminophen 325 Mg Tablet PO 02/23/24 15:44 Q6H PRN Fever >101.5 Acetaminophen 650 mg 01/24/24 15:45 Acetaminophen 325 Mg Tablet PO 02/23/24 15:44 Q6H PRN PAIN SCALE 1-3 (mild Hydrocodone Bitart/Acetaminophen 1 tab 01/24/24 15:45 01/24/24 21:09 Hydrocodone/Apap 5/325 Tablet PO 01/29/24 15:44 1 tab Q4HR PRN Administration PAIN SCALE 4-6 (Moderate Clonidine 0.1 mg 01/24/24 22:00 01/26/24 05:19 Clonidine Hcl 0.1 Mg Tablet PO 02/23/24 21:59 0.1 mg TID DIO Administration Dextrose 25 ml 01/24/24 15:51 Dextrose 50%-Water Inj 50 Ml Syringe IV 02/23/24 15:50 Q15MIN PRN BG 50-70 responsive npo pt Dextrose 50 ml 01/24/24 15:51 Dextrose 50%-Water Inj 50 Ml Syringe IV 02/23/24 15:50 Q15MIN PRN BG <50 OR BG <70 & pt unresponsive Doxycycline Hyclate 100 mg 01/24/24 16:00 01/26/24 09:19 Doxycycline 100 Mg Tablet PO 01/31/24 15:59 100 mg BID DIO Administration Glucagon 1 mg 01/24/24 15:51 Glucagon Inj 1 Mg Vial IM Q15MIN PRN BG <70, and no IV access Heparin Sodium (Porcine) 5,000 unit 01/25/24 21:00 01/26/24 09:16 Heparin Sod Inj 5000 Unit/Ml Vial SC 02/07/24 15:44 Not Given Q12HR DIO Hydralazine HCl 100 mg 01/24/24 22:00 01/26/24 05:19 Hydralazine Hcl 25 Mg Tablet PO 02/23/24 21:59 100 mg TID DIO Administration Ceftriaxone Sodium/Dextrose 50 mls @ 100 mls/hr 01/24/24 15:48 01/26/24 09:54 Rocephin/D5w 1gm Iv Premix IV 01/31/24 15:47 100 mls/hr QDAY DIO Administration Insulin Human Lispro 0 unit 01/24/24 17:00 01/26/24 07:48 Insulin Lispro (Admelog) 1 Unit/0.01 Ml Unit SC 02/23/24 16:59 4 unit ACHS DIO Administration Protocol Mycophenolate Mofetil 750 mg 01/25/24 09:00 01/26/24 09:20 Mycophenolate 250 Mg Capsule (Non-Formulary) PO 02/24/24 08:59 750 mg BID DIO Administration Nifedipine 90 mg 01/25/24 09:00 01/26/24 09:00 Nifedipine Xl 30 Mg Tabcr PO 02/24/24 08:59 90 mg QDAY DIO Administration Prednisone 5 mg 01/25/24 09:00 01/26/24 09:21 Prednisone 5 Mg Tablet PO 02/24/24 08:59 5 mg QAM DIO Administration Tacrolimus 2 mg 01/25/24 21:00 01/25/24 20:59 Tacrolimus 1 Mg Capsule (Non-Formulary) PO 02/24/24 20:59 2 mg HS DIO Administration Tacrolimus 1.5 mg 01/25/24 09:30 01/26/24 09:22 Tacrolimus 0.5 Mg Capsule (Non-Formulary) PO 02/24/24 09:29 1.5 mg QAM [facility] Administration Plan 48-year-old male with past medical history of right eye glaucoma s/p prosthetic eye, DM2, hypertension, 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 #Osteomyelitis of distal phalanx of first digit left foot, failed outpatient antibiotics #Diabetic foot #Leukocytosis #Hx DM 2 #Hx right BKA secondary to osteomyelitis of right foot ?Patient has been experiencing an open wound on his left second toe and swelling and redness in his first left toe as well for the past 2 weeks. ?Patient failed outpatient antibiotics ?Left foot x-ray showed osteomyelitis of distal phalanx of first digit ?WBC 7.4 ?L central line in place ?Blood cultures negative in 24 hrs -ID recommended to assess patient's arterial flow in L LE and IV Abx for now. Plan: ?Continue ceftriaxone 1 g daily and doxycycline 100 mg twice daily [01/24/2024?] -US arterial dupplex L LE ordered -General surgery (Dr. Maldonado) consulted, appreciate recommendations ?Blood cultures pending ?ISS ?Accu-Cheks and hypoglycemia protocol ordered ?ID consulted, appreciate recommendations ?Will consider consulting general surgery ?Will continue to monitor #CKD s/p right kidney transplant #Hx of right kidney transplant #Immunocompromised ?Patient has a history of CKD status post kidney transplant 2019 ?Patient is on immunosuppressive therapy therefore he is immunocompromise Plan: ?Continue patient's immunosuppressive therapy including prednisone 5 mg daily, tacrolimus 1.5 mg a.m. and 2 mg at bedtime, and mycophenolate 750 twice daily ?Avoid nephrotoxic agents ?Renally dose medications ?Nephrology consulted, appreciate recommendations ?Will continue to monitor #Hx of hypertension ?Continue clonidine 0.1 mg 3 times daily, hydralazine 100 mg 3 times daily, carvedilol 25 mg twice daily, nifedipine 90 mg daily. #Hx of glaucoma s/p prosthetic eye ?Patient's right eye is prosthetic eye Disposition: Patient seen in med surg, pending ID recommendation in Abx. Diet: renal carb consistent low GI prophylaxis:not indicated DVT prophylaxis: heparin sc Code: Full code Case disclosed with Attending Dr. Alejandro and My senior Dr. Philippe PGY2. Leo Anderson PGY1 Attending Provider Attestation/Addendum I, Tamica Alejandro, , attest that I was physically present for the farias portions of the service and evaluated the patient with the resident and I reviewed and discussed the case with the resident and agree with the resident's findings and plans of care as documented above Patient seen and evaluated this AM. He states he is feeling well. Central line in place, dressing is clean, dry and intact. Patient was seen by ID this AM who recommends surgical evaluation of OM which may prevent further injury of his transplanted kidneys from long term care pharmacist antibiotics. However, will await cultures to assess for possibility of oral antibiotics. Otherwise, it will be difficult to place a PICC line for long term care pharmacist abx. Case was discussed with surgeon who does not feel that the osteomyelitis is significant enough for amputation and recommends abx instead. There is a superficial ulcer over the second digit that appears dry, but there is no evidence of OM. Will continue with abx at this time and f/u with ID recs
--- NOTE | 2024-01-26 15:35 | PC.SS ---
Rounding note; Pending Dr. Maldonado for consult, poss surgery.
--- NOTE | 2024-01-26 17:14 | ESCONSULT_ITS ---
HPI Consult details Consult date: 01/26/24 Reason for consultation narrative: Patient was seen in consultation because of osteomyelitis of the left great toe History of present illness: History of present illness revealed that the patient had developed ulceration over the second toe and some swelling over the left great toe for the past 2 weeks. Patient denies any pain but he has probably neuropathy following diabetes. He denies any injury. Patient's past medical history revealed that he is a status post transplantation of the kidney with immunosuppression. Other problem consist of hypertension glaucoma history of acute pancreatitis. Past Medical History Past Medical History NEUROLOGIC: Positive Peripheral Neuropathy and Migraine; Negative Neurological Disorders or Seizures CARDIAC: Positive Cardiac Disorders, Edema, Cellulitis and Hypertension; Negative Congestive Heart Failure RESPIRATORY: Positive Sleep Apnea; Negative Chronic Obstructive Pulmonary Disease (COPD) GASTROINTESTINAL: Positive Gastrointestinal Disorders, Pancreatitis, Gall Bladder Disease, Gastrointestinal Bleed and Gastroesophageal Reflux Disease; Negative Hepatitis GENITOURINARY: Positive Genitourinary Disorders, Renal Disease and Dialysis REPRODUCTIVE: Negative Testicular Cancer MUSCULOSKELETAL: Positive Musculoskeletal Disorders, Muscular Dystrophy, Arthritis, Scoliosis and Osteomyelitis ENT: Positive Glaucoma, Blind and Eye Prosthesis ENDOCRINE: Positive Endocrine Disorders and Diabetes Mellitus Type 2; Negative Diabetes Mellitus Type 1 HEMATOLOGIC: Positive Blood Disorders and Anemia PSYCHO/SOCIAL: Positive Depression and Anxiety OTHER HISTORY: Positive Hospitalization, Organ Transplant (KIDNEY 02/11/20) and Chicken Pox; Negative Blood Transfusions, Anesthesia Reactions, MRSA, VRSA, Vancomycin- Resistant Enterococci, Measles, Mumps, Rubella ([place] Measles), Cancer or Testicular Cancer Family History FAMILY HISTORY: Positive Family Cardiac Disorders Surgical History SURGICAL: Positive Amputation and Organ Transplant (KIDNEY 02/11/20); Negative Abdominal Surgery Social History SMOKING STATUS: Former smoker SECOND HAND EXPOSURE: No SUBSTANCE USE: does not use Meds Home Medications and Allergies Home Medications ?Medication ?Instructions ?Recorded ?Confirmed ?Type clonidine HCl 0.3 mg tablet 0.1 mg PO TID High Blood Pressure 11/04/16 01/24/24 History #0 tabs hydralazine 100 mg tablet 50 mg PO TID High Blood Pressure 11/04/16 01/24/24 History #0 tabs hydrocodone 10 mg-acetaminophen 1 tab PO TID PRN Back Pain #0 tabs 11/04/16 01/24/24 History 325 mg tablet alprazolam 0.5 mg tablet 0.5 mg PO TID PRN Anxiety 01/24/24 01/24/24 History carvedilol 25 mg tablet 25 mg PO BID 01/24/24 01/24/24 History mycophenolate mofetil 250 mg 250 mg PO BID 01/24/24 01/24/24 History capsule nifedipine 90 mg tablet,extended 90 mg PO QDAY 01/24/24 01/24/24 History release prednisone 5 mg tablet 5 mg PO QDAY 01/24/24 01/24/24 History tacrolimus 0.5 mg capsule, 0.5 mg PO QDAY 01/24/24 01/24/24 History immediate-release tacrolimus 1 mg capsule, 1 mg PO BID 01/24/24 01/24/24 History immediate-release Allergies Allergy/AdvReac Type Severity Reaction Status Date / Time atenolol Allergy Severe SWELLING Verified 11/15/20 15:58 FACE AND HANDS, UNCONTROLLED COUGH ibuprofen Allergy Severe RASH, DIZZY Verified 11/15/20 15:58 lisinopril Allergy Severe SWELLING Verified 11/15/20 15:58 IN FACE AND HANDS chlorhexidine AdvReac Mild Rash Verified 11/15/20 15:58 Exam Vital Signs Temp Pulse Resp BP Pulse Ox O2 Del Method O2 Flow Rate 97.4 F 70 16 156/88 H 98 Room Air 3 01/26/24 16:00 01/26/24 16:00 01/26/24 16:00 01/26/24 16:00 01/26/24 16:00 01/26/24 16:00 01/24/24 15:40 Narrative Exam Physical examination revealed a 48-year-old male who appeared to be in his stated age. His vital signs revealed normal values other than mild hypertension Constitutional Constitutional: no acute distress Routine Extremities Exam Comments: Patient has had a B-K amputation on the right side. On the left side patient had some superficial ulceration over the dorsal aspect of the second toe. The left great toe is slightly swollen but it is not tender and there is no evidence of abscess or cellulitis or gangrene. Palpation failed to reveal any pain. Patient has AV fistula on the left upper extremity. Patient has excellent pulse palpable on the left foot both dorsalis pedis and posterior tibial. Results Results: Laboratory Laboratory Narrative: His laboratory works are within normal limits Results: Imaging Imaging narrative: X-ray of the left foot showed osteomyelitis of the distal phalanx of the great toe. There is no other osteomyelitis of the second toe or other toes Assessment & Plan Additional Assessment Additional comments: Impression: Possible early osteomyelitis of the distal phalanx of the left great toe Status post kidney transplantation on immunosuppression Hypertension Glaucoma Plan Plan: Patient is osteomyelitis seem to be very subtle and it is not showing any destruction of the bone. I do not think the patient will benefit from amputation. This could be treated with antibiotics. As far as second toe is concerned he does not require amputation either. He has ulceration which is healing well and I would leave it alone. At the most he may require some debridement. Thank you very much
[2024-01-26] MEDS: TACROLIMUS 1 MG CAPSULE (NON-FORMULARY) 2 MG PO (21:03)
[2024-01-27] VITALS (12 sets, daily range): BP systolic 132–184; BP diastolic 66–86; PULSE 51–120; RESP 18–20; TEMP 36.1–36.7; O2SAT 95–99
[2024-01-27] MEDS: hydrALAZINE HCL 25 MG TABLET 100 MG PO ×3 (05:28→21:07)
[2024-01-27] MEDS: cloNIDine HCL 0.1 MG TABLET PO ×3 (05:28→21:07)
[2024-01-27 06:06] LABS: Basophils % (Auto) 1 % (0-2.5); Eosinophils # (Auto) 0.2 Thou/mm3 (0.0-0.5); Eosinophils % (Auto) 3 % (0-10); Hematocrit 41.6 % (41.0-53.0); Hemoglobin 13.6 g/dL (13.5-16.0); Immature Granulocytes % (Auto) 0 % (0-0); Immature Granulocytes Auto 0.02 Thou/mm3 (0.00-0.00); Lymphocytes # (Auto) 1.5 Thou/mm3 (1.0-4.8); Lymphocytes % (Auto) 22 % (10-50); Mean Corpuscular HGB Conc 32.7 g/dl (31.0-37.0); Mean Corpuscular Hemoglobin 26.5 pg (25.0-35.0); Mean Corpuscular Volume 81 fL (80-100); Monocytes # (Auto) 0.8 Thou/mm3 (0.0-0.8); Monocytes % (Auto) 12 % (0-12); Neutrophils # (Auto) 4.1 Thou/mm3 (1.8-7.7); Neutrophils % (Auto) 62 % (37-80); Nucleated Red Blood Cell % 0 /100 WBC (0); Platelet Count 221 Thou/mm3 (140-440); RDW Standard Deviation 38.9 fL (35.1-43.9); Red Blood Count 5.14 Miln/mm3 (4.50-5.90); White Blood Count 6.7 Thou/mm3 (3.8-10.6)
[2024-01-27 06:45] LABS: Anion Gap 7 (7-16); BUN/Creatinine Ratio 16 Ratio (12-20); Blood Urea Nitrogen 16 mg/dL (9-23); Calcium 10.4 mg/dL (8.3-10.6); Carbon Dioxide 24.1 mMol/L (20.0-31.0); Chloride 107 mMol/L (98-107); Estimated Creatinine Clearance 120.6 mL/min (>60); Glucose 182 mg/dL (74-106); Magnesium 1.8 mg/dL (1.6-2.6); Osmolality,Calculated 281 (275-295); Potassium 3.8 mMol/L (3.4-5.1); Sodium 138 mMol/L (136-145); eGFR > 60 See Note
[2024-01-27] MEDS: NIFEdipine XL 30 MG TABCR 90 MG PO (08:46)
[2024-01-27] MEDS: TACROLIMUS 0.5 MG CAPSULE (NON-FORMULARY) 1.5 MG PO (08:49)
[2024-01-27] MEDS: DOXYCYCLINE 100 MG TABLET PO ×2 (08:49→21:00)
[2024-01-27] MEDS: predniSONE 5 MG TABLET PO (08:49)
[2024-01-27] MEDS: MYCOPHENOLATE 250 MG CAPSULE (NON-FORMULARY) 750 MG PO ×2 (08:52→21:00)
[2024-01-27] MEDS: cefTRIAXone/D5w 1gm IV premix 50 ML IV (08:53)
[2024-01-27] MEDS: INSULIN LISPRO (AdmeLOG) 1 UNIT/0.01 ML UNIT SC ×4 (08:54→21:15)
[2024-01-27] MEDS: INSULIN GLARGINE (Lantus) 5 UNIT/0.05 ML (PER 5 UNITS) 7 UNIT SC (08:57)
--- NOTE | 2024-01-27 11:36 | ESPR_ITS ---
Documentation for date of: 01/27/24 Subjective Subjective Interval history: Patient's vitals, labs, imaging and chart reviewed. Patient interviewed and examined at bedsidePatient has no acute complaints at this time. General surgery recommends no amputation or surgical intervention at this time and that osteomyelitis can be treated with abx. Will continue current abx regimen and await further recommendations from ID service in regards to continued outpatient treatment of osteomyelitis. Exam Vital Signs Temp Pulse Resp BP Pulse Ox O2 Del Method O2 Flow Rate 97.1 F 57 L 20 169/86 H 99 Room Air 3 01/27/24 08:00 01/27/24 08:46 01/27/24 08:00 01/27/24 08:46 01/27/24 08:00 01/27/24 08:00 01/24/24 15:40 Narrative Exam General: A/O x3, no acute distress, well-nourished, well-developed Eyes: R prosthetic eye, L eye reactive to light, EOMI, vision grossly intact. Ears: No ear pain, no ear discharge, Hearing grossly intact. Nose: No nasal discharge. Mouth/Throat: Dry mucous membranes, no redness, no lesions. Neck: Neck supple, non-tender, no cervical lymphadenopathy. Lungs: Clear JUSTINE to auscultation and percussion, No accessory muscle use. Cardio: Normal S1/S2, regular rhythm, no murmurs, no JVD. Abdomen: Soft, non-tender, no palpable masses, peristalsis present, no guarding or rebound. Extremities: R BKA, no peripheral edema , non-tender, L peripheral pulse present. L 1 toe discolored, L 2nd toe with dry wound in dorsal aspect. L UE fistula Skin: No rashes, no lesions, warm to touch. Neuro: No focal neurological deficits. motor and sensory intact. Psych: Cooperative, appropriate mood and effect. Objective Labs 01/28/24 04:51 01/28/24 04:51 Labs: Laboratory Results - last 24 hr 01/27/24 05:15 WBC 6.7 RBC 5.14 Hgb 13.6 Hct 41.6 MCV 81 MCH 26.5 MCHC 32.7 RDW Std Deviation 38.9 Plt Count 221 Neut % (Auto) 62 Lymph % (Auto) 22 [place] % (Auto) 12 Eos % (Auto) 3 Baso % (Auto) 1 Neut # (Auto) 4.1 Lymph # (Auto) 1.5 [place] # (Auto) 0.8 Eos # (Auto) 0.2 Baso # (Auto) 0.0 Immature Gran # (Auto) 0.02 H Absolute Nucleated RBC 0.00 Immature Gran % 0 Nucleated RBC % 0 Sodium 138 Potassium 3.8 Chloride 107 Carbon Dioxide 24.1 Anion Gap 7 BUN 16 Creatinine 1.0 Estim Creat Clear Calc 120.6 eGFR > 60 BUN/Creatinine Ratio 16 Glucose 182 H Calculated Osmolality 281 Calcium 10.4 Magnesium 1.8 Quality Measures Quality Measures none Assessment & Plan Assessment Current Active Medications: Generic Name Dose Route Start Last Admin Trade Name Freq PRN Reason Stop Dose Admin Acetaminophen 650 mg 01/24/24 15:45 Acetaminophen 325 Mg Tablet PO 02/23/24 15:44 Q6H PRN Fever >101.5 Acetaminophen 650 mg 01/24/24 15:45 Acetaminophen 325 Mg Tablet PO 02/23/24 15:44 Q6H PRN PAIN SCALE 1-3 (mild Hydrocodone Bitart/Acetaminophen 1 tab 01/24/24 15:45 01/24/24 21:09 Hydrocodone/Apap 5/325 Tablet PO 01/29/24 15:44 1 tab Q4HR PRN Administration PAIN SCALE 4-6 (Moderate Clonidine 0.1 mg 01/24/24 22:00 01/27/24 05:28 Clonidine Hcl 0.1 Mg Tablet PO 02/23/24 21:59 0.1 mg TID DIO Administration Dextrose 25 ml 01/24/24 15:51 Dextrose 50%-Water Inj 50 Ml Syringe IV 02/23/24 15:50 Q15MIN PRN BG 50-70 responsive npo pt Dextrose 50 ml 01/24/24 15:51 Dextrose 50%-Water Inj 50 Ml Syringe IV 02/23/24 15:50 Q15MIN PRN BG <50 OR BG <70 & pt unresponsive Doxycycline Hyclate 100 mg 01/24/24 16:00 01/27/24 08:49 Doxycycline 100 Mg Tablet PO 01/31/24 15:59 100 mg BID DIO Administration Glucagon 1 mg 01/24/24 15:51 Glucagon Inj 1 Mg Vial IM Q15MIN PRN BG <70, and no IV access Heparin Sodium (Porcine) 5,000 unit 01/25/24 21:00 01/26/24 21:06 Heparin Sod Inj 5000 Unit/Ml Vial SC 02/07/24 15:44 Not Given Q12HR DIO Hydralazine HCl 100 mg 01/24/24 22:00 01/27/24 05:28 Hydralazine Hcl 25 Mg Tablet PO 02/23/24 21:59 100 mg TID DIO Administration Ceftriaxone Sodium/Dextrose 50 mls @ 100 mls/hr 01/24/24 15:48 01/27/24 08:53 Rocephin/D5w 1gm Iv Premix IV 01/31/24 15:47 100 mls/hr QDAY DIO Administration Insulin Glargine 7 unit 01/27/24 09:00 01/27/24 08:57 Insulin Glargine (Lantus) 5 Unit/0.05 Ml (Per 5 Units) SC 02/26/24 08:59 7 unit QDAY DIO Administration Insulin Human Lispro 0 unit 01/24/24 17:00 01/27/24 08:54 Insulin Lispro (Admelog) 1 Unit/0.01 Ml Unit SC 02/23/24 16:59 4 unit ACHS DIO Administration Protocol Mycophenolate Mofetil 750 mg 01/25/24 09:00 01/27/24 08:52 Mycophenolate 250 Mg Capsule (Non-Formulary) PO 02/24/24 08:59 750 mg BID DIO Administration Nifedipine 90 mg 01/25/24 09:00 01/27/24 08:46 Nifedipine Xl 30 Mg Tabcr PO 02/24/24 08:59 90 mg QDAY DIO Administration Prednisone 5 mg 01/25/24 09:00 01/27/24 08:49 Prednisone 5 Mg Tablet PO 02/24/24 08:59 5 mg QAM DIO Administration Tacrolimus 2 mg 01/25/24 21:00 01/26/24 21:03 Tacrolimus 1 Mg Capsule (Non-Formulary) PO 02/24/24 20:59 2 mg HS DIO Administration Tacrolimus 1.5 mg 01/25/24 09:30 01/27/24 08:49 Tacrolimus 0.5 Mg Capsule (Non-Formulary) PO 02/24/24 09:29 1.5 mg QAM DIO Administration Plan 48-year-old male with past medical history of right eye glaucoma s/p prosthetic eye, DM2, hypertension, 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 #Osteomyelitis of distal phalanx of first digit left foot, failed outpatient antibiotics #Diabetic foot #Leukocytosis #Hx DM 2 #Hx right BKA secondary to osteomyelitis of right foot ?Patient has been experiencing an open wound on his left second toe and swelling and redness in his first left toe as well for the past 2 weeks. ?Patient failed outpatient antibiotics ?Left foot x-ray showed osteomyelitis of distal phalanx of first digit ?WBC 7.4 ?L central line in place ?Blood cultures negative in 24 hrs -General surgery recommended against amputation at this time and recommends to continue ABX. -ID recommended to assess patient's arterial flow in L LE and IV Abx for now. Plan: ?Continue ceftriaxone 1g daily and doxycycline 100 mg twice daily [01/24/2024?] -US arterial dupplex L LE ordered -General surgery (Dr. Maldonado) consulted, appreciate recommendations ?Blood cultures pending ?ISS ?Accu-Cheks and hypoglycemia protocol ordered ?ID consulted, appreciate recommendations ?Will continue to monitor #CKD s/p right kidney transplant #Hx of right kidney transplant #Immunocompromised ?Patient has a history of CKD status post kidney transplant 2019 ?Patient is on immunosuppressive therapy therefore he is immunocompromise Plan: ?Continue patient's immunosuppressive therapy including prednisone 5 mg daily, tacrolimus 1.5 mg a.m. and 2 mg at bedtime, and mycophenolate 750 twice daily ?Avoid nephrotoxic agents ?Renally dose medications ?Nephrology consulted, appreciate recommendations ?Will continue to monitor #Hx of hypertension ?Continue clonidine 0.1 mg 3 times daily, hydralazine 100 mg 3 times daily, carvedilol 25 mg twice daily, nifedipine 90 mg daily. #Hx of glaucoma s/p prosthetic eye ?Patient's right eye is prosthetic eye Disposition: Patient seen in med surg, pending ID recommendation in Abx. Diet: renal carb consistent low GI prophylaxis:not indicated DVT prophylaxis: heparin sc Code: Full code LPatient's case was discussed with supervising attending physician Dr. Alejandro. Macario Oakley M.D. Internal Medicine PGY-3 Attending Provider Attestation/Addendum Tamica Rios, DO, attest that I was physically present for the farias portions of the service and evaluated the patient with the resident and I reviewed and discussed the case with the resident and agree with the resident's findings and plans of care as documented above Patient seen and evaluated this AM. No acute events overnight. ID recs appreciated. US arterial shows abnormal monophasic wave. Patient may need vascular given subclavian obstruction and PAD if unable to place PICC for IV abx. Blood cultures NGTD. Pt remains afebrile. Will f/u with ID recommendations. Continue with doxy and rocephin.
[2024-01-27] MEDS: TACROLIMUS 1 MG CAPSULE (NON-FORMULARY) 2 MG PO (21:00)
[2024-01-28] VITALS (14 sets, daily range): BP systolic 115–167; BP diastolic 72–97; PULSE 51–65; RESP 16–18; TEMP 36–36.3; O2SAT 69–99
[2024-01-28] MEDS: hydrALAZINE HCL 25 MG TABLET 100 MG PO ×3 (05:14→21:02)
[2024-01-28] MEDS: cloNIDine HCL 0.1 MG TABLET PO ×3 (05:14→21:03)
[2024-01-28 06:23] LABS: Basophils # (Auto) 0.1 Thou/mm3 (0.0-0.2); Basophils % (Auto) 1 % (0-2.5); Eosinophils # (Auto) 0.2 Thou/mm3 (0.0-0.5); Eosinophils % (Auto) 3 % (0-10); Hematocrit 41.7 % (41.0-53.0); Hemoglobin 13.9 g/dL (13.5-16.0); Immature Granulocytes % (Auto) 0 % (0-0); Immature Granulocytes Auto 0.03 Thou/mm3 (0.00-0.00); Lymphocytes # (Auto) 1.5 Thou/mm3 (1.0-4.8); Lymphocytes % (Auto) 20 % (10-50); Mean Corpuscular HGB Conc 33.3 g/dl (31.0-37.0); Mean Corpuscular Hemoglobin 26.8 pg (25.0-35.0); Mean Corpuscular Volume 80 fL (80-100); Monocytes # (Auto) 0.8 Thou/mm3 (0.0-0.8); Monocytes % (Auto) 11 % (0-12); Neutrophils # (Auto) 4.8 Thou/mm3 (1.8-7.7); Neutrophils % (Auto) 65 % (37-80); Nucleated Red Blood Cell % 0 /100 WBC (0); Platelet Count 230 Thou/mm3 (140-440); RDW Standard Deviation 38.8 fL (35.1-43.9); Red Blood Count 5.19 Miln/mm3 (4.50-5.90); White Blood Count 7.4 Thou/mm3 (3.8-10.6)
[2024-01-28 06:33] LABS: Alanine Aminotransferase 14 U/L (10-49); Albumin, Serum 3.9 gm/dL (3.5-5.0); Anion Gap 9 (7-16); Aspartate Amino Transferase 17 U/L (0-34); BUN/Creatinine Ratio 14 Ratio (12-20); Bilirubin,Total 0.3 mg/dL (0.3-1.2); Blood Urea Nitrogen 14 mg/dL (9-23); Calcium 10.1 mg/dL (8.3-10.6); Calcium (Corrected) 10.2 mg/dL (8.5-10.1); Carbon Dioxide 23.7 mMol/L (20.0-31.0); Chloride 104 mMol/L (98-107); Estimated Creatinine Clearance 120.6 mL/min (>60); Globulin 2.3 gm/dL (2.3-3.5); Glucose 115 mg/dL (74-106); Osmolality,Calculated 275 (275-295); Potassium 3.6 mMol/L (3.4-5.1); Sodium 137 mMol/L (136-145); Total Protein 6.2 gm/dL (5.7-8.2); eGFR > 60 See Note
[2024-01-28 06:34] LABS: Albumin/Globulin Ratio 1.7 (1.2-2.2); Alkaline Phosphatase 77 U/L (46-116)
[2024-01-28] MEDS: INSULIN LISPRO (AdmeLOG) 1 UNIT/0.01 ML UNIT SC ×4 (07:47→21:00)
--- NOTE | 2024-01-28 08:55 | ESPR_ITS ---
<Statement entered by Vargas Philippe MD - 01/28/24 13:48> Senior Resident Attestation: I supervised/discussed management plan with internal carver physician Dr. Bryant, and was involved in the care of this patient. I personally saw and examined the patient and discussed the assessment and plan with the entire medicine team, including my attending. I agree with the assessment and plan as documented. Patient was seen and examined at bedside. No acute overnight events. Pending ID recommendation for p.o. antibiotics for osteomyelitis. Will continue current management and monitor patient. Patient's care was discussed with attending physician, Dr. Alejandro. Vargas Philippe MD PGY-2. Documentation for date of: 01/28/24 Subjective Subjective Interval history: Patient seen at bedside this morning. No overnight events. Patient was wondering why his long-acting insulin had not been the same dose as his home medication as his blood sugars are more controlled at home. Long-acting insulin was increased to patient's home dose today we will keep monitoring for any adjustments. No other complaints at this time still pending ID recommendations for antibiotic regimen outpatient as general surgery did not recommend any amputation at this time. Exam Vital Signs Temp Pulse Resp BP Pulse Ox O2 Del Method O2 Flow Rate 97.0 F 51 L 18 165/76 H 97 Room Air 3 01/28/24 08:00 01/28/24 08:00 01/28/24 08:00 01/28/24 08:00 01/28/24 08:00 01/28/24 08:00 01/24/24 15:40 Narrative Exam General: A/O x3, no acute distress, well-nourished, well-developed, resting in bed Eyes: R prosthetic eye, L eye reactive to light, EOMI, vision grossly intact. Ears: No ear pain, no ear discharge, Hearing grossly intact. Nose: No nasal discharge. Mouth/Throat: Dry mucous membranes, no redness, no lesions. Neck: Neck supple, non-tender, no cervical lymphadenopathy. Lungs: Clear JUSTINE to auscultation and percussion, No accessory muscle use. Cardio: Normal S1/S2, regular rhythm, no murmurs, no JVD. Abdomen: Soft, non-tender, no palpable masses, peristalsis present, no guarding or rebound. Extremities: R BKA, no peripheral edema , non-tender, L peripheral pulse present. L 1 toe discolored, L 2nd toe with dry wound in dorsal aspect. L UE fistula Skin: No rashes, no lesions, warm to touch. Neuro: No focal neurological deficits. motor and sensory intact. Psych: Cooperative, appropriate mood and effect. Objective Labs 01/28/24 04:51 01/28/24 04:51 Labs: Laboratory Results - last 24 hr 01/28/24 04:51 WBC 7.4 RBC 5.19 Hgb 13.9 Hct 41.7 MCV 80 MCH 26.8 MCHC 33.3 RDW Std Deviation 38.8 Plt Count 230 Neut % (Auto) 65 Lymph % (Auto) 20 [place] % (Auto) 11 Eos % (Auto) 3 Baso % (Auto) 1 Neut # (Auto) 4.8 Lymph # (Auto) 1.5 [place] # (Auto) 0.8 Eos # (Auto) 0.2 Baso # (Auto) 0.1 Immature Gran # (Auto) 0.03 H Absolute Nucleated RBC 0.00 Immature Gran % 0 Nucleated RBC % 0 Sodium 137 Potassium 3.6 Chloride 104 Carbon Dioxide 23.7 Anion Gap 9 BUN 14 Creatinine 1.0 Estim Creat Clear Calc 120.6 eGFR > 60 BUN/Creatinine Ratio 14 Glucose 115 H D Calculated Osmolality 275 Calcium 10.1 Corrected Calcium 10.2 H Total Bilirubin 0.3 AST 17 ALT 14 Alkaline Phosphatase 77 Total Protein 6.2 Albumin 3.9 Globulin 2.3 Albumin/Globulin Ratio 1.7 Quality Measures Quality Measures none Assessment & Plan Assessment Current Active Medications: Generic Name Dose Route Start Last Admin Trade Name Jasonq PRN Reason Stop Dose Admin Acetaminophen 650 mg 01/24/24 15:45 Acetaminophen 325 Mg Tablet PO 02/23/24 15:44 Q6H PRN Fever >101.5 Acetaminophen 650 mg 01/24/24 15:45 Acetaminophen 325 Mg Tablet PO 02/23/24 15:44 Q6H PRN PAIN SCALE 1-3 (mild Hydrocodone Bitart/Acetaminophen 1 tab 01/24/24 15:45 01/24/24 21:09 Hydrocodone/Apap 5/325 Tablet PO 01/29/24 15:44 1 tab Q4HR PRN Administration PAIN SCALE 4-6 (Moderate Clonidine 0.1 mg 01/24/24 22:00 01/28/24 05:14 Clonidine Hcl 0.1 Mg Tablet PO 02/23/24 21:59 0.1 mg TID DIO Administration Dextrose 25 ml 01/24/24 15:51 Dextrose 50%-Water Inj 50 Ml Syringe IV 02/23/24 15:50 Q15MIN PRN BG 50-70 responsive npo pt Dextrose 50 ml 01/24/24 15:51 Dextrose 50%-Water Inj 50 Ml Syringe IV 02/23/24 15:50 Q15MIN PRN BG <50 OR BG <70 & pt unresponsive Doxycycline Hyclate 100 mg 01/24/24 16:00 01/27/24 21:00 Doxycycline 100 Mg Tablet PO 01/31/24 15:59 100 mg BID DIO Administration Glucagon 1 mg 01/24/24 15:51 Glucagon Inj 1 Mg Vial IM Q15MIN PRN BG <70, and no IV access Heparin Sodium (Porcine) 5,000 unit 01/25/24 21:00 01/27/24 21:02 Heparin Sod Inj 5000 Unit/Ml Vial SC 02/07/24 15:44 Not Given Q12HR [facility] Hydralazine HCl 100 mg 01/24/24 22:00 01/28/24 05:14 Hydralazine Hcl 25 Mg Tablet PO 02/23/24 21:59 100 mg TID DIO Administration Ceftriaxone Sodium/Dextrose 50 mls @ 100 mls/hr 01/24/24 15:48 01/27/24 08:53 Rocephin/D5w 1gm Iv Premix IV 01/31/24 15:47 100 mls/hr QDAY [facility] Administration Insulin Glargine 11 unit 01/28/24 09:00 Insulin Glargine (Lantus) 5 Unit/0.05 Ml (Per 5 Units) SC 02/27/24 08:59 QDAY [facility] Insulin Human Lispro 0 unit 01/24/24 17:00 01/28/24 07:47 Insulin Lispro (Admelog) 1 Unit/0.01 Ml Unit SC 02/23/24 16:59 2 unit ACHS DIO Administration Protocol Mycophenolate Mofetil 750 mg 01/25/24 09:00 01/27/24 21:00 Mycophenolate 250 Mg Capsule (Non-Formulary) PO 02/24/24 08:59 750 mg BID DIO Administration Nifedipine 90 mg 01/25/24 09:00 01/27/24 08:46 Nifedipine Xl 30 Mg Tabcr PO 02/24/24 08:59 90 mg QDAY IDO Administration Prednisone 5 mg 01/25/24 09:00 01/27/24 08:49 Prednisone 5 Mg Tablet PO 02/24/24 08:59 5 mg QAM DIO Administration Tacrolimus 2 mg 01/25/24 21:00 01/27/24 21:00 Tacrolimus 1 Mg Capsule (Non-Formulary) PO 02/24/24 20:59 2 mg HS DIO Administration Tacrolimus 1.5 mg 01/25/24 09:30 01/27/24 08:49 Tacrolimus 0.5 Mg Capsule (Non-Formulary) PO 02/24/24 09:29 1.5 mg QAM DIO Administration Plan 48-year-old male with past medical history of right eye glaucoma s/p prosthetic eye, DM2, hypertension, 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 #Osteomyelitis of distal phalanx of first digit left foot, failed outpatient antibiotics #Diabetic foot #Leukocytosis #Hx DM 2 #Hx right BKA secondary to osteomyelitis of right foot ?Patient has been experiencing an open wound on his left second toe and swelling and redness in his first left toe as well for the past 2 weeks. ?Patient failed outpatient antibiotics ?Left foot x-ray showed osteomyelitis of distal phalanx of first digit ?WBC 7.4 ?L central line in place ?Blood cultures negative in 48 hrs -ID recommended to assess patient's arterial flow in L LE and IV Abx for now. -Surgery stated no surgery for now, just IV abx. Plan: ?Continue ceftriaxone 1 g daily and doxycycline 100 mg twice daily [01/24/2024?] -General surgery (Dr. Maldonado) consulted, appreciate recommendations ?ISS -Glargine 11 units qday ?Accu-Cheks and hypoglycemia protocol ordered ?ID consulted, appreciate recommendations ?Will consider consulting general surgery ?Will continue to monitor #CKD s/p right kidney transplant #Hx of right kidney transplant #Immunocompromised ?Patient has a history of CKD status post kidney transplant 2019 ?Patient is on immunosuppressive therapy therefore he is immunocompromise Plan: ?Continue patient's immunosuppressive therapy including prednisone 5 mg daily, tacrolimus 1.5 mg a.m. and 2 mg at bedtime, and mycophenolate 750 twice daily ?Avoid nephrotoxic agents ?Renally dose medications ?Nephrology consulted, appreciate recommendations ?Will continue to monitor #Hx of hypertension ?Continue clonidine 0.1 mg 3 times daily, hydralazine 100 mg 3 times daily, carvedilol 3.125 mg twice daily, nifedipine 90 mg daily. #Hx of glaucoma s/p prosthetic eye ?Patient's right eye is prosthetic eye Disposition: Patient seen in med surg, pending ID recommendation in Abx. Diet: renal carb consistent low GI prophylaxis:not indicated DVT prophylaxis: heparin sc Code: Full code Case disclosed with Attending Dr. Alejandro and My senior Dr. Philippe PGY2. Leo Anderson PGY1 Attending Provider Attestation/Addendum I, Tamica Alejandro, , attest that I was physically present for the farias portions of the service and evaluated the patient with the resident and I reviewed and discussed the case with the resident and agree with the resident's findings and plans of care as documented above Patient seen and evaluated this a.m. No acute events overnight. Patient states that he had seen a vascular surgeon in the past prior to his kidney transplant. He remains afebrile. Will follow-up with ID recommendations regarding possible oral antibiotic recommendations. He has no active complaints otherwise. May need to speak to vascular regarding occluded right subclavian vein if IV abx is preferred.
[2024-01-28] MEDS: NIFEdipine XL 30 MG TABCR 90 MG PO (09:01)
[2024-01-28] MEDS: predniSONE 5 MG TABLET PO (09:03)
[2024-01-28] MEDS: MYCOPHENOLATE 250 MG CAPSULE (NON-FORMULARY) 750 MG PO ×2 (09:03→20:52)
[2024-01-28] MEDS: TACROLIMUS 0.5 MG CAPSULE (NON-FORMULARY) 1.5 MG PO (09:03)
[2024-01-28] MEDS: cefTRIAXone/D5w 1gm IV premix 50 ML IV (09:04)
[2024-01-28] MEDS: INSULIN GLARGINE (Lantus) 5 UNIT/0.05 ML (PER 5 UNITS) 11 UNIT SC (09:04)
[2024-01-28] MEDS: DOXYCYCLINE 100 MG TABLET PO ×2 (09:04→20:52)
[2024-01-28] MEDS: carVEDILOL 3.125 MG TABLET PO ×2 (12:09→17:17)
[2024-01-28] MEDS: TACROLIMUS 1 MG CAPSULE (NON-FORMULARY) 2 MG PO (20:52)
[2024-01-29] VITALS (16 sets, daily range): BP systolic 146–179; BP diastolic 57–91; PULSE 49–65; RESP 18; TEMP 36.1–36.5; O2SAT 94–98
[2024-01-29] MEDS: hydrALAZINE HCL 25 MG TABLET 100 MG PO ×3 (05:33→21:10)
[2024-01-29] MEDS: cloNIDine HCL 0.1 MG TABLET PO ×3 (05:33→21:11)
[2024-01-29 06:10] LABS: Basophils # (Auto) 0.1 Thou/mm3 (0.0-0.2); Basophils % (Auto) 1 % (0-2.5); Eosinophils # (Auto) 0.2 Thou/mm3 (0.0-0.5); Eosinophils % (Auto) 3 % (0-10); Hematocrit 42.8 % (41.0-53.0); Hemoglobin 13.7 g/dL (13.5-16.0); Immature Granulocytes % (Auto) 0 % (0-0); Immature Granulocytes Auto 0.02 Thou/mm3 (0.00-0.00); Lymphocytes # (Auto) 1.6 Thou/mm3 (1.0-4.8); Lymphocytes % (Auto) 23 % (10-50); Mean Corpuscular Hemoglobin 26.3 pg (25.0-35.0); Mean Corpuscular Volume 82 fL (80-100); Monocytes # (Auto) 0.8 Thou/mm3 (0.0-0.8); Monocytes % (Auto) 11 % (0-12); Neutrophils # (Auto) 4.1 Thou/mm3 (1.8-7.7); Neutrophils % (Auto) 62 % (37-80); Nucleated Red Blood Cell % 0 /100 WBC (0); Platelet Count 224 Thou/mm3 (140-440); RDW Standard Deviation 39.7 fL (35.1-43.9); White Blood Count 6.6 Thou/mm3 (3.8-10.6)
[2024-01-29 06:48] LABS: Alanine Aminotransferase 14 U/L (10-49); Albumin/Globulin Ratio 1.7 (1.2-2.2); Alkaline Phosphatase 69 U/L (46-116); Anion Gap 9 (7-16); Aspartate Amino Transferase 17 U/L (0-34); BUN/Creatinine Ratio 15 Ratio (12-20); Bilirubin,Total 0.4 mg/dL (0.3-1.2); Blood Urea Nitrogen 16 mg/dL (9-23); Calcium 10.4 mg/dL (8.3-10.6); Calcium (Corrected) 10.4 mg/dL (8.5-10.1); Carbon Dioxide 23.8 mMol/L (20.0-31.0); Chloride 105 mMol/L (98-107); Creatinine (Component) 1.1 mg/dL (0.6-1.3); Estimated Creatinine Clearance 109.6 mL/min (>60); Globulin 2.3 gm/dL (2.3-3.5); Glucose 100 mg/dL (74-106); Osmolality,Calculated 276 (275-295); Potassium 3.6 mMol/L (3.4-5.1); Sodium 138 mMol/L (136-145); Total Protein 6.3 gm/dL (5.7-8.2); eGFR > 60 See Note
[2024-01-29] MEDS: carVEDILOL 3.125 MG TABLET PO ×2 (07:47→17:50)
[2024-01-29] MEDS: cefTRIAXone/D5w 1gm IV premix 50 ML IV (08:15)
[2024-01-29] MEDS: INSULIN GLARGINE (Lantus) 5 UNIT/0.05 ML (PER 5 UNITS) 11 UNIT SC (08:15)
[2024-01-29] MEDS: NIFEdipine XL 30 MG TABCR 90 MG PO (08:16)
[2024-01-29] MEDS: DOXYCYCLINE 100 MG TABLET PO ×2 (08:17→20:16)
[2024-01-29] MEDS: MYCOPHENOLATE 250 MG CAPSULE (NON-FORMULARY) 750 MG PO ×2 (09:17→21:12)
[2024-01-29] MEDS: predniSONE 5 MG TABLET PO (09:17)
[2024-01-29] MEDS: TACROLIMUS 0.5 MG CAPSULE (NON-FORMULARY) 1.5 MG PO (09:17)
--- NOTE | 2024-01-29 09:35 | PD.IDPROG ---
Subjective Subjective Interval history: events noted. esr not that high and crp 1.1. rx is empirical though bc are neg. no surgery noted. Exam Vital Signs Temp Pulse Resp BP Pulse Ox O2 Del Method O2 Flow Rate 97.5 F 56 L 18 156/87 H 95 Room Air 3 01/29/24 07:52 01/29/24 08:16 01/29/24 07:52 01/29/24 08:16 01/29/24 07:52 01/29/24 07:52 01/29/24 07:52 Narrative Exam looks the same. not septic appearing. foot about the same. Objective - Internal Medicine Labs 01/29/24 04:48 01/29/24 04:48 Labs: Laboratory Results - last 24 hr 01/29/24 04:48 WBC 6.6 RBC 5.20 Hgb 13.7 Hct 42.8 MCV 82 MCH 26.3 MCHC 32.0 RDW Std Deviation 39.7 Plt Count 224 Neut % (Auto) 62 Lymph % (Auto) 23 [place] % (Auto) 11 Eos % (Auto) 3 Baso % (Auto) 1 Neut # (Auto) 4.1 Lymph # (Auto) 1.6 [place] # (Auto) 0.8 Eos # (Auto) 0.2 Baso # (Auto) 0.1 Immature Gran # (Auto) 0.02 H Absolute Nucleated RBC 0.00 Immature Gran % 0 Nucleated RBC % 0 Sodium 138 Potassium 3.6 Chloride 105 Carbon Dioxide 23.8 Anion Gap 9 BUN 16 Creatinine 1.1 Estim Creat Clear Calc 109.6 eGFR > 60 BUN/Creatinine Ratio 15 Glucose 100 Calculated Osmolality 276 Calcium 10.4 Corrected Calcium 10.4 H Total Bilirubin 0.4 AST 17 ALT 14 Alkaline Phosphatase 69 Total Protein 6.3 Albumin 4.0 Globulin 2.3 Albumin/Globulin Ratio 1.7 Assessment & Plan A&P Narrative osteo of foot dm II be sure that circulation ok po rx only an option with good micro and a good response to rx. will f/u Monday rocephin 2 gm iv daily and po doxy 100 bid recommended for now. if esr and crp improved, we can look at po rx, but remember it is empirical, so if we go po, will need both doxy and a second agent such as keflex 1000 qid. will otherwise see mon if remains in house Time Spent With Patient Time: Total time spent is greater than 50% in coordination of care (as documented) at patient's floor/unit and/or counseling patient:
[2024-01-29 10:48] LABS: C-Reactive Protein 1.2 mg/dL (0.0-0.9)
[2024-01-29 10:49] LABS: Sed Rate (ESR) 13 mm/hr (0-15)
[2024-01-29] MEDS: INSULIN LISPRO (AdmeLOG) 1 UNIT/0.01 ML UNIT SC ×3 (11:13→20:16)
--- NOTE | 2024-01-29 11:49 | PC.NURSE ---
Notified Dr. Philippe of patients high BP. Waiting for new orders
[2024-01-29] MEDS: hydrALAZINE INJ 20 MG/ML VIAL 10 MG IV (12:05)
--- NOTE | 2024-01-29 13:11 | ESPR_ITS ---
<Statement entered by Vargas Philippe MD - 01/29/24 14:18> Senior Resident Attestation: I supervised/discussed management plan with music intern physician Dr. Bryant, and was involved in the care of this patient. I personally saw and examined the patient and discussed the assessment and plan with the entire medicine team, including my attending. I agree with the assessment and plan as documented. Patient was seen and examined at bedside. No acute overnight events. Tomorrow repeat ESR and CRP and infectious disease will decide on which antibiotic we can discharge patient, anticipate discharge tomorrow. Patient's care was discussed with attending physician, Dr. Alejandro. Vargas Philippe MD PGY-2. Documentation for date of: 01/29/24 Subjective Subjective Interval history: Patient was seen at bedside this morning. No overnight events. Infectious disease specialist saw the patient this morning and order an ESR and CRP for tomorrow morning and based on these there is the possibility of doing empirical p.o. antibiotics for patient. No other complaints at this time. Exam Vital Signs Temp Pulse Resp BP Pulse Ox O2 Del Method O2 Flow Rate 97.3 F 50 L 18 174/77 H 98 Room Air 3 01/29/24 11:46 01/29/24 12:05 01/29/24 11:46 01/29/24 12:05 01/29/24 11:46 01/29/24 11:46 01/29/24 11:46 Narrative Exam General: A/O x3, no acute distress, well-nourished, well-developed, resting in bed Eyes: R prosthetic eye, L eye reactive to light, EOMI, vision grossly intact. Ears: No ear pain, no ear discharge, Hearing grossly intact. Nose: No nasal discharge. Mouth/Throat: Dry mucous membranes, no redness, no lesions. Neck: Neck supple, non-tender, no cervical lymphadenopathy. Lungs: Clear JUSTINE to auscultation and percussion, No accessory muscle use. Cardio: Normal S1/S2, regular rhythm, no murmurs, no JVD. Abdomen: Soft, non-tender, no palpable masses, peristalsis present, no guarding or rebound. Extremities: R BKA, no peripheral edema , non-tender, L peripheral pulse present. L 1 toe discolored, L 2nd toe with dry wound in dorsal aspect. L UE fistula Skin: No rashes, no lesions, warm to touch. Neuro: No focal neurological deficits. motor and sensory intact. Psych: Cooperative, appropriate mood and effect. Objective Labs 01/29/24 04:48 01/29/24 04:48 Labs: Laboratory Results - last 24 hr 01/29/24 04:48 WBC 6.6 RBC 5.20 Hgb 13.7 Hct 42.8 MCV 82 MCH 26.3 MCHC 32.0 RDW Std Deviation 39.7 Plt Count 224 Neut % (Auto) 62 Lymph % (Auto) 23 [place] % (Auto) 11 Eos % (Auto) 3 Baso % (Auto) 1 Neut # (Auto) 4.1 Lymph # (Auto) 1.6 [place] # (Auto) 0.8 Eos # (Auto) 0.2 Baso # (Auto) 0.1 Immature Gran # (Auto) 0.02 H Absolute Nucleated RBC 0.00 Immature Gran % 0 Nucleated RBC % 0 ESR 13 Sodium 138 Potassium 3.6 Chloride 105 Carbon Dioxide 23.8 Anion Gap 9 BUN 16 Creatinine 1.1 Estim Creat Clear Calc 109.6 eGFR > 60 BUN/Creatinine Ratio 15 Glucose 100 Calculated Osmolality 276 Calcium 10.4 Corrected Calcium 10.4 H Total Bilirubin 0.4 AST 17 ALT 14 Alkaline Phosphatase 69 C-Reactive Prot, Quant 1.2 H Total Protein 6.3 Albumin 4.0 Globulin 2.3 Albumin/Globulin Ratio 1.7 Quality Measures Quality Measures none Assessment & Plan Assessment Current Active Medications: Generic Name Dose Route Start Last Admin Trade Name Freq PRN Reason Stop Dose Admin Acetaminophen 650 mg 01/24/24 15:45 Acetaminophen 325 Mg Tablet PO 02/23/24 15:44 Q6H PRN Fever >101.5 Acetaminophen 650 mg 01/24/24 15:45 Acetaminophen 325 Mg Tablet PO 02/23/24 15:44 Q6H PRN PAIN SCALE 1-3 (mild Hydrocodone Bitart/Acetaminophen 1 tab 01/24/24 15:45 01/24/24 21:09 Hydrocodone/Apap 5/325 Tablet PO 01/29/24 15:44 1 tab Q4HR PRN Administration PAIN SCALE 4-6 (Moderate Carvedilol 3.125 mg 01/28/24 10:45 01/29/24 07:47 Carvedilol 3.125 Mg Tablet PO 02/27/24 17:29 3.125 mg BIDWM DIO Administration Clonidine 0.1 mg 01/24/24 22:00 01/29/24 05:33 Clonidine Hcl 0.1 Mg Tablet PO 02/23/24 21:59 0.1 mg TID DIO Administration Dextrose 25 ml 01/24/24 15:51 Dextrose 50%-Water Inj 50 Ml Syringe IV 02/23/24 15:50 Q15MIN PRN BG 50-70 responsive npo pt Dextrose 50 ml 01/24/24 15:51 Dextrose 50%-Water Inj 50 Ml Syringe IV 02/23/24 15:50 Q15MIN PRN BG <50 OR BG <70 & pt unresponsive Doxycycline Hyclate 100 mg 01/24/24 16:00 01/29/24 08:17 Doxycycline 100 Mg Tablet PO 01/31/24 15:59 100 mg BID DIO Administration Glucagon 1 mg 01/24/24 15:51 Glucagon Inj 1 Mg Vial IM Q15MIN PRN BG <70, and no IV access Heparin Sodium (Porcine) 5,000 unit 01/25/24 21:00 01/29/24 08:16 Heparin Sod Inj 5000 Unit/Ml Vial SC 02/07/24 15:44 Not Given Q12HR [facility] Hydralazine HCl 100 mg 01/24/24 22:00 01/29/24 05:33 Hydralazine Hcl 25 Mg Tablet PO 02/23/24 21:59 100 mg TID DIO Administration Ceftriaxone Sodium/Dextrose 50 mls @ 100 mls/hr 01/24/24 15:48 01/29/24 08:15 Rocephin/D5w 1gm Iv Premix IV 01/31/24 15:47 100 mls/hr QDAY DIO Administration Insulin Glargine 11 unit 01/28/24 09:00 01/29/24 08:15 Insulin Glargine (Lantus) 5 Unit/0.05 Ml (Per 5 Units) SC 02/27/24 08:59 11 unit QDAY DIO Administration Insulin Human Lispro 0 unit 01/24/24 17:00 01/29/24 11:13 Insulin Lispro (Admelog) 1 Unit/0.01 Ml Unit SC 02/23/24 16:59 2 unit ACHS DIO Administration Protocol Mycophenolate Mofetil 750 mg 01/25/24 09:00 01/29/24 09:17 Mycophenolate 250 Mg Capsule (Non-Formulary) PO 02/24/24 08:59 750 mg BID DIO Administration Nifedipine 90 mg 01/25/24 09:00 01/29/24 08:16 Nifedipine Xl 30 Mg Tabcr PO 02/24/24 08:59 90 mg QDAY DIO Administration Prednisone 5 mg 01/25/24 09:00 01/29/24 09:17 Prednisone 5 Mg Tablet PO 02/24/24 08:59 5 mg QAM DIO Administration Tacrolimus 2 mg 01/25/24 21:00 01/28/24 20:52 Tacrolimus 1 Mg Capsule (Non-Formulary) PO 02/24/24 20:59 2 mg HS DIO Administration Tacrolimus 1.5 mg 01/25/24 09:30 01/29/24 09:17 Tacrolimus 0.5 Mg Capsule (Non-Formulary) PO 02/24/24 09:29 1.5 mg QAM DIO Administration Plan 48-year-old male with past medical history of right eye glaucoma s/p prosthetic eye, DM2, hypertension, 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 #Osteomyelitis of distal phalanx of first digit left foot, failed outpatient antibiotics #Diabetic foot #Leukocytosis #Hx DM 2 #Hx right BKA secondary to osteomyelitis of right foot ?Patient has been experiencing an open wound on his left second toe and swelling and redness in his first left toe as well for the past 2 weeks. ?Patient failed outpatient antibiotics ?Left foot x-ray showed osteomyelitis of distal phalanx of first digit ?WBC 6.6 ?L central line in place ?Blood cultures negative in 48 hrs -ID will F/U on esr and CRP tomorrow for possibility to due PO Abx with keflex 1000 QID and Doxy 100mg BID. -Surgery stated no surgery for now, just IV abx. Plan: ?Continue ceftriaxone 1 g daily and doxycycline 100 mg twice daily [01/24/2024?] -General surgery (Dr. Maldonado) consulted, appreciate recommendations ?ISS -Glargine 11 units qday ?Accu-Cheks and hypoglycemia protocol ordered ?ID consulted, appreciate recommendations ?Will consider consulting general surgery ?Will continue to monitor #CKD s/p right kidney transplant #Hx of right kidney transplant #Immunocompromised ?Patient has a history of CKD status post kidney transplant 2019 ?Patient is on immunosuppressive therapy therefore he is immunocompromise Plan: ?Continue patient's immunosuppressive therapy including prednisone 5 mg daily, tacrolimus 1.5 mg a.m. and 2 mg at bedtime, and mycophenolate 750 twice daily ?Avoid nephrotoxic agents ?Renally dose medications ?Nephrology consulted, appreciate recommendations ?Will continue to monitor #Hx of hypertension ?Continue clonidine 0.1 mg 3 times daily, hydralazine 100 mg 3 times daily, carvedilol 3.125 mg twice daily, nifedipine 90 mg daily. -Hydralazine 10mg x1 today due to elevated BP #Hx of glaucoma s/p prosthetic eye ?Patient's right eye is prosthetic eye Disposition: Patient seen in med surg, pending ESR and CRP tomorrow. Diet: renal carb consistent low GI prophylaxis:not indicated DVT prophylaxis: heparin sc Code: Full code Case disclosed with Attending Dr. Alejandro and My senior Dr. Philippe PGY2. Leo Anderson PGY1 Attending Provider Attestation/Addendum I, Tamica Alejandro, DO, attest that I was physically present for the farias portions of the service and evaluated the patient with the resident and I reviewed and discussed the case with the resident and agree with the resident's findings and plans of care as documented above Continue with IV antibiotics at this time as per ID recommendations. Patient has no active complaints at this time. Pending ESR and CRP in a.m. to determine if patient could go home on oral antibiotics.
[2024-01-29] MEDS: TACROLIMUS 1 MG CAPSULE (NON-FORMULARY) 2 MG PO (21:11)
[2024-01-30] VITALS (16 sets, daily range): BP systolic 122–158; BP diastolic 72–82; PULSE 53–69; RESP 15–19; TEMP 36.2–36.4; O2SAT 95–97; BMI 30.4
--- NOTE | 2024-01-30 03:37 | PC.ADMIT ---
It was reported to this magazine writer by Mehul ZHONG that during her 1:1 duties the patient began smiling and exposing his genitalia and masturbating. Patient became verbally aggressive and threatening after being accused of inappropriate behavior by staff. Patient denied allegations and responded with escalating hostility, including threats toward staff and comments of harm. Patient stated, I got hands, bitch, I'ma rip your throat out. You tiffanie I'm in cuffs, and, I don?t give a fuck, who the fuck are you to be accusing me?
[2024-01-30] MEDS: hydrALAZINE HCL 25 MG TABLET 100 MG PO ×3 (05:05→21:00)
[2024-01-30] MEDS: cloNIDine HCL 0.1 MG TABLET PO ×3 (05:06→20:59)
[2024-01-30 06:10] LABS: Basophils # (Auto) 0.1 Thou/mm3 (0.0-0.2); Basophils % (Auto) 1 % (0-2.5); Eosinophils # (Auto) 0.2 Thou/mm3 (0.0-0.5); Eosinophils % (Auto) 2 % (0-10); Hematocrit 43.2 % (41.0-53.0); Hemoglobin 14.1 g/dL (13.5-16.0); Immature Granulocytes % (Auto) 0 % (0-0); Immature Granulocytes Auto 0.03 Thou/mm3 (0.00-0.00); Lymphocytes # (Auto) 1.7 Thou/mm3 (1.0-4.8); Lymphocytes % (Auto) 24 % (10-50); Mean Corpuscular HGB Conc 32.6 g/dl (31.0-37.0); Mean Corpuscular Hemoglobin 26.6 pg (25.0-35.0); Mean Corpuscular Volume 82 fL (80-100); Monocytes # (Auto) 0.9 Thou/mm3 (0.0-0.8); Monocytes % (Auto) 13 % (0-12); Neutrophils % (Auto) 59 % (37-80); Nucleated Red Blood Cell % 0 /100 WBC (0); Platelet Count 227 Thou/mm3 (140-440); RDW Standard Deviation 39.7 fL (35.1-43.9); White Blood Count 6.8 Thou/mm3 (3.8-10.6)
[2024-01-30 06:20] LABS: Sed Rate (ESR) 31 mm/hr (0-15)
[2024-01-30 06:41] LABS: Alanine Aminotransferase 15 U/L (10-49); Albumin, Serum 4.1 gm/dL (3.5-5.0); Albumin/Globulin Ratio 1.8 (1.2-2.2); Alkaline Phosphatase 75 U/L (46-116); Anion Gap 8 (7-16); Aspartate Amino Transferase 19 U/L (0-34); BUN/Creatinine Ratio 16 Ratio (12-20); Bilirubin,Total 0.4 mg/dL (0.3-1.2); Blood Urea Nitrogen 19 mg/dL (9-23); Calcium 10.6 mg/dL (8.3-10.6); Calcium (Corrected) 10.6 mg/dL (8.5-10.1); Carbon Dioxide 23.2 mMol/L (20.0-31.0); Chloride 104 mMol/L (98-107); Creatinine (Component) 1.2 mg/dL (0.6-1.3); Estimated Creatinine Clearance 100.5 mL/min (>60); Globulin 2.3 gm/dL (2.3-3.5); Glucose 122 mg/dL (74-106); Osmolality,Calculated 273 (275-295); Potassium 3.9 mMol/L (3.4-5.1); Sodium 135 mMol/L (136-145); Total Protein 6.4 gm/dL (5.7-8.2); eGFR > 60 See Note
[2024-01-30] MEDS: carVEDILOL 3.125 MG TABLET PO ×2 (07:41→17:00)
--- NOTE | 2024-01-30 09:30 | PC.SS ---
SS follow up note; ID will see patient tomorrow, Pending ID recommendations, patient is on PO ABX VS IV ABX.
[2024-01-30] MEDS: INSULIN GLARGINE (Lantus) 5 UNIT/0.05 ML (PER 5 UNITS) 11 UNIT SC (09:32)
[2024-01-30] MEDS: NIFEdipine XL 30 MG TABCR 90 MG PO (09:33)
[2024-01-30] MEDS: predniSONE 5 MG TABLET PO (09:33)
[2024-01-30] MEDS: TACROLIMUS 0.5 MG CAPSULE (NON-FORMULARY) 1.5 MG PO (09:34)
[2024-01-30] MEDS: MYCOPHENOLATE 250 MG CAPSULE (NON-FORMULARY) 750 MG PO ×2 (09:34→20:59)
[2024-01-30] MEDS: DOXYCYCLINE 100 MG TABLET PO ×2 (09:34→20:58)
[2024-01-30] MEDS: cefTRIAXone/D5w 1gm IV premix 50 ML IV (09:35)
[2024-01-30] MEDS: INSULIN LISPRO (AdmeLOG) 1 UNIT/0.01 ML UNIT SC ×3 (11:41→21:09)
--- NOTE | 2024-01-30 12:09 | ESPR_ITS ---
<Statement entered by Vargas Philippe MD - 01/30/24 17:23> Senior Resident Attestation: I supervised/discussed management plan with manager of international physician Dr. Bryant, and was involved in the care of this patient. I personally saw and examined the patient and discussed the assessment and plan with the entire medicine team, including my attending. I agree with the assessment and plan as documented. Patient was seen and examined at the bedside. No overnight events. Pending recs from ID for outpatient Abx treatment tomorrow. Patient's care was discussed with attending physician, Dr. Alejandro. Vargas Philippe MD PGY-2. Documentation for date of: 01/30/24 Subjective Subjective Interval history: Patient seen at bedside this morning. No overnight. Patient's ESR up trended to 31 today compared to 13 from yesterday, CRP went down to 1 from 1.2 yesterday. Spoke with infectious diseases who said that he would see patient tomorrow. Patient is irritated and frustrated with being in the hospital and was hoping to be discharged today, but stated that he will be patient and wait until tomorrow yet stated that tomorrow will be his last stated that he would otherwise leave AGAINST MEDICAL ADVICE. Pending infectious disease recommendations. Exam Vital Signs Temp Pulse Resp BP Pulse Ox O2 Del Method O2 Flow Rate 97.5 F 53 L 18 123/78 97 Room Air 3 01/30/24 07:37 01/30/24 09:33 01/30/24 07:37 01/30/24 09:33 01/30/24 07:37 01/30/24 07:37 01/30/24 00:00 Narrative Exam General: A/O x3, no acute distress, well-nourished, well-developed, resting in bed Eyes: R prosthetic eye, L eye reactive to light, EOMI, vision grossly intact. Ears: No ear pain, no ear discharge, Hearing grossly intact. Nose: No nasal discharge. Mouth/Throat: Dry mucous membranes, no redness, no lesions. Neck: Neck supple, non-tender, no cervical lymphadenopathy. Lungs: Clear JUSTINE to auscultation and percussion, No accessory muscle use. Cardio: Normal S1/S2, regular rhythm, no murmurs, no JVD. Abdomen: Soft, non-tender, no palpable masses, peristalsis present, no guarding or rebound. Extremities: R BKA, no peripheral edema , non-tender, L peripheral pulse present. L 1 toe discolored, L 2nd toe with dry wound in dorsal aspect. L UE fistula Skin: No rashes, no lesions, warm to touch. Neuro: No focal neurological deficits. motor and sensory intact. Psych: irritable Objective Labs 01/30/24 05:30 01/30/24 05:30 Labs: Laboratory Results - last 24 hr 01/30/24 05:30 WBC 6.8 RBC 5.30 Hgb 14.1 Hct 43.2 MCV 82 MCH 26.6 MCHC 32.6 RDW Std Deviation 39.7 Plt Count 227 Neut % (Auto) 59 Lymph % (Auto) 24 [place] % (Auto) 13 H Eos % (Auto) 2 Baso % (Auto) 1 Neut # (Auto) 4.0 Lymph # (Auto) 1.7 [place] # (Auto) 0.9 H Eos # (Auto) 0.2 Baso # (Auto) 0.1 Immature Gran # (Auto) 0.03 H Absolute Nucleated RBC 0.00 Immature Gran % 0 Nucleated RBC % 0 ESR 31 H Sodium 135 L Potassium 3.9 Chloride 104 Carbon Dioxide 23.2 Anion Gap 8 BUN 19 Creatinine 1.2 Estim Creat Clear Calc 100.5 eGFR > 60 BUN/Creatinine Ratio 16 Glucose 122 H Calculated Osmolality 273 L Calcium 10.6 Corrected Calcium 10.6 H Total Bilirubin 0.4 AST 19 ALT 15 Alkaline Phosphatase 75 C-Reactive Prot, Quant 1.0 H Total Protein 6.4 Albumin 4.1 Globulin 2.3 Albumin/Globulin Ratio 1.8 Quality Measures Quality Measures none Assessment & Plan Assessment Current Active Medications: Generic Name Dose Route Start Last Admin Trade Name Freq PRN Reason Stop Dose Admin Acetaminophen 650 mg 01/24/24 15:45 Acetaminophen 325 Mg Tablet PO 02/23/24 15:44 Q6H PRN Fever >101.5 Acetaminophen 650 mg 01/24/24 15:45 Acetaminophen 325 Mg Tablet PO 02/23/24 15:44 Q6H PRN PAIN SCALE 1-3 (mild Carvedilol 3.125 mg 01/28/24 10:45 01/30/24 07:41 Carvedilol 3.125 Mg Tablet PO 02/27/24 17:29 3.125 mg BIDWM DIO Administration Clonidine 0.1 mg 01/24/24 22:00 01/30/24 05:06 Clonidine Hcl 0.1 Mg Tablet PO 02/23/24 21:59 0.1 mg TID DIO Administration Dextrose 25 ml 01/24/24 15:51 Dextrose 50%-Water Inj 50 Ml Syringe IV 02/23/24 15:50 Q15MIN PRN BG 50-70 responsive npo pt Dextrose 50 ml 01/24/24 15:51 Dextrose 50%-Water Inj 50 Ml Syringe IV 02/23/24 15:50 Q15MIN PRN BG <50 OR BG <70 & pt unresponsive Doxycycline Hyclate 100 mg 01/24/24 16:00 01/30/24 09:34 Doxycycline 100 Mg Tablet PO 01/31/24 15:59 100 mg BID DIO Administration Glucagon 1 mg 01/24/24 15:51 Glucagon Inj 1 Mg Vial IM Q15MIN PRN BG <70, and no IV access Heparin Sodium (Porcine) 5,000 unit 01/25/24 21:00 01/30/24 09:33 Heparin Sod Inj 5000 Unit/Ml Vial SC 02/07/24 15:44 Not Given Q12HR [facility] Hydralazine HCl 100 mg 01/24/24 22:00 01/30/24 05:05 Hydralazine Hcl 25 Mg Tablet PO 02/23/24 21:59 100 mg TID DIO Administration Ceftriaxone Sodium/Dextrose 50 mls @ 100 mls/hr 01/24/24 15:48 01/30/24 09:35 Rocephin/D5w 1gm Iv Premix IV 01/31/24 15:47 100 mls/hr QDAY DIO Administration Insulin Glargine 11 unit 01/28/24 09:00 01/30/24 09:32 Insulin Glargine (Lantus) 5 Unit/0.05 Ml (Per 5 Units) SC 02/27/24 08:59 11 unit QDAY DIO Administration Insulin Human Lispro 0 unit 01/24/24 17:00 01/30/24 11:41 Insulin Lispro (Admelog) 1 Unit/0.01 Ml Unit SC 02/23/24 16:59 2 unit ACHS DIO Administration Protocol Mycophenolate Mofetil 750 mg 01/25/24 09:00 01/30/24 09:34 Mycophenolate 250 Mg Capsule (Non-Formulary) PO 02/24/24 08:59 750 mg BID DIO Administration Nifedipine 90 mg 01/25/24 09:00 01/30/24 09:33 Nifedipine Xl 30 Mg Tabcr PO 02/24/24 08:59 90 mg QDAY DIO Administration Prednisone 5 mg 01/25/24 09:00 01/30/24 09:33 Prednisone 5 Mg Tablet PO 02/24/24 08:59 5 mg QAM DIO Administration Tacrolimus 2 mg 01/25/24 21:00 01/29/24 21:11 Tacrolimus 1 Mg Capsule (Non-Formulary) PO 02/24/24 20:59 2 mg HS DIO Administration Tacrolimus 1.5 mg 01/25/24 09:30 01/30/24 09:34 Tacrolimus 0.5 Mg Capsule (Non-Formulary) PO 02/24/24 09:29 1.5 mg QAM DIO Administration Plan 48-year-old male with past medical history of right eye glaucoma s/p prosthetic eye, DM2, hypertension, 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 #Osteomyelitis of distal phalanx of first digit left foot, failed outpatient antibiotics #Diabetic foot #Leukocytosis #PAD #Hx DM 2 #Hx right BKA secondary to osteomyelitis of right foot ?Patient has been experiencing an open wound on his left second toe and swelling and redness in his first left toe as well for the past 2 weeks. ?Patient failed outpatient antibiotics ?Left foot x-ray showed osteomyelitis of distal phalanx of first digit ?WBC 6.8 ?L central line in place ?Blood cultures negative in 48 hrs -ID will F/U on esr and CRP tomorrow for possibility to due PO Abx with keflex 1000 QID and Doxy 100mg BID. - Arterial US of left lower extremity shows Abnormal monophasic flow in the dorsalis pedis artery, consistent with small vessel arterial disease -Surgery stated no surgery for now, just IV abx. Plan: ?Continue ceftriaxone 1 g daily and doxycycline 100 mg twice daily [01/24/2024?] ?ISS -Glargine 11 units qday ?Accu-Cheks and hypoglycemia protocol ordered ?ID consulted, appreciate recommendations -General surgery (Dr. Maldonado) consulted, appreciate recommendations ?Will continue to monitor - please f/u with outpatient vascular surgery regarding right subclavian obstruction #CKD s/p right kidney transplant #Hx of right kidney transplant #Immunocompromised ?Patient has a history of CKD status post kidney transplant 2019 ?Patient is on immunosuppressive therapy therefore he is immunocompromise Plan: ?Continue patient's immunosuppressive therapy including prednisone 5 mg daily, tacrolimus 1.5 mg a.m. and 2 mg at bedtime, and mycophenolate 750 twice daily ?Avoid nephrotoxic agents ?Renally dose medications ?Nephrology consulted, appreciate recommendations ?Will continue to monitor #Hx of hypertension ?Continue clonidine 0.1 mg 3 times daily, hydralazine 100 mg 3 times daily, carvedilol 3.125 mg twice daily, nifedipine 90 mg daily. #Hx of glaucoma s/p prosthetic eye ?Patient's right eye is prosthetic eye Disposition: Patient seen in med surg, pending ESR and CRP tomorrow and ID recommendations. Diet: renal carb consistent low GI prophylaxis:not indicated DVT prophylaxis: heparin sc Code: Full code Case disclosed with Attending Dr. Alejandro and My senior Dr. Philippe PGY2. Leo Anderson PGY1 Attending Provider Attestation/Addendum I, Tamica Alejandro, DO, attest that I was physically present for the farias portions of the service and evaluated the patient with the resident and I reviewed and discussed the case with the resident and agree with the resident's findings and plans of care as documented above Patient seen and evaluated this a.m. No acute events overnight. ESR today up trended, but was 13 yesterday while CRP downtrending. Will follow-up with infectious disease otherwise. Continue with IV antibiotics.
[2024-01-30] MEDS: TACROLIMUS 1 MG CAPSULE (NON-FORMULARY) 2 MG PO (20:58)
[2024-01-31] VITALS (11 sets, daily range): BP systolic 137–185; BP diastolic 73–108; PULSE 51–90; RESP 15–18; TEMP 36.1–36.4; O2SAT 96–98
[2024-01-31 05:43] LABS: Basophils # (Auto) 0.1 Thou/mm3 (0.0-0.2); Basophils % (Auto) 1 % (0-2.5); Eosinophils # (Auto) 0.2 Thou/mm3 (0.0-0.5); Eosinophils % (Auto) 3 % (0-10); Hematocrit 41.6 % (41.0-53.0); Hemoglobin 13.7 g/dL (13.5-16.0); Immature Granulocytes % (Auto) 1 % (0-0); Immature Granulocytes Auto 0.03 Thou/mm3 (0.00-0.00); Lymphocytes # (Auto) 1.7 Thou/mm3 (1.0-4.8); Lymphocytes % (Auto) 26 % (10-50); Mean Corpuscular HGB Conc 32.9 g/dl (31.0-37.0); Mean Corpuscular Hemoglobin 26.4 pg (25.0-35.0); Mean Corpuscular Volume 80 fL (80-100); Monocytes # (Auto) 0.7 Thou/mm3 (0.0-0.8); Monocytes % (Auto) 11 % (0-12); Neutrophils # (Auto) 3.7 Thou/mm3 (1.8-7.7); Neutrophils % (Auto) 58 % (37-80); Nucleated Red Blood Cell % 0 /100 WBC (0); Platelet Count 217 Thou/mm3 (140-440); RDW Standard Deviation 39.4 fL (35.1-43.9); Red Blood Count 5.18 Miln/mm3 (4.50-5.90); White Blood Count 6.3 Thou/mm3 (3.8-10.6)
[2024-01-31] MEDS: cloNIDine HCL 0.1 MG TABLET PO ×2 (05:50→13:41)
[2024-01-31] MEDS: hydrALAZINE HCL 25 MG TABLET 100 MG PO ×2 (05:51→13:41)
[2024-01-31 05:56] LABS: Sed Rate (ESR) 19 mm/hr (0-15)
[2024-01-31 06:37] LABS: Alanine Aminotransferase 13 U/L (10-49); Albumin, Serum 3.9 gm/dL (3.5-5.0); Albumin/Globulin Ratio 1.7 (1.2-2.2); Alkaline Phosphatase 67 U/L (46-116); Anion Gap 8 (7-16); Aspartate Amino Transferase 16 U/L (0-34); BUN/Creatinine Ratio 16 Ratio (12-20); Bilirubin,Total 0.4 mg/dL (0.3-1.2); Blood Urea Nitrogen 18 mg/dL (9-23); C-Reactive Protein 0.7 mg/dL (0.0-0.9); Calcium 10.3 mg/dL (8.3-10.6); Calcium (Corrected) 10.4 mg/dL (8.5-10.1); Carbon Dioxide 23.9 mMol/L (20.0-31.0); Chloride 104 mMol/L (98-107); Creatinine (Component) 1.1 mg/dL (0.6-1.3); Estimated Creatinine Clearance 109.6 mL/min (>60); Globulin 2.3 gm/dL (2.3-3.5); Glucose 96 mg/dL (74-106); Osmolality,Calculated 273 (275-295); Potassium 3.7 mMol/L (3.4-5.1); Sodium 136 mMol/L (136-145); Total Protein 6.2 gm/dL (5.7-8.2); eGFR > 60 See Note
[2024-01-31] MEDS: DOXYCYCLINE 100 MG TABLET PO (09:45)
[2024-01-31] MEDS: predniSONE 5 MG TABLET PO (09:45)
[2024-01-31] MEDS: TACROLIMUS 0.5 MG CAPSULE (NON-FORMULARY) 1.5 MG PO (09:45)
[2024-01-31] MEDS: MYCOPHENOLATE 250 MG CAPSULE (NON-FORMULARY) 750 MG PO (09:45)
[2024-01-31] MEDS: carVEDILOL 3.125 MG TABLET PO ×2 (09:45→17:21)
[2024-01-31] MEDS: INSULIN GLARGINE (Lantus) 5 UNIT/0.05 ML (PER 5 UNITS) 11 UNIT SC (09:46)
[2024-01-31] MEDS: NIFEdipine XL 30 MG TABCR 90 MG PO (09:46)
[2024-01-31] MEDS: cefTRIAXone/D5w 1gm IV premix 50 ML IV (09:47)
--- NOTE | 2024-01-31 12:29 | ESPR_ITS ---
Subjective Subjective Interval history: received call from primary team wanting me to choose the empiric rx for this man.all cx neg. no bone bx. esr/crp have normalized. Exam Vital Signs Temp Pulse Resp BP Pulse Ox O2 Del Method O2 Flow Rate 97.5 F 89 17 171/108 H 96 Room Air 3 01/31/24 12:00 01/31/24 12:00 01/31/24 12:00 01/31/24 12:00 01/31/24 12:00 01/31/24 12:00 01/30/24 00:00 Narrative Exam pt static. prior rt bka noted. L foot is the issue and great toe has looked ok. 2nd toe looks worse, but is not problematic per mri Objective - Internal Medicine Labs 01/31/24 04:35 01/31/24 04:35 Labs: Laboratory Results - last 24 hr 01/31/24 04:35 WBC 6.3 RBC 5.18 Hgb 13.7 Hct 41.6 MCV 80 MCH 26.4 MCHC 32.9 RDW Std Deviation 39.4 Plt Count 217 Neut % (Auto) 58 Lymph % (Auto) 26 [place] % (Auto) 11 Eos % (Auto) 3 Baso % (Auto) 1 Neut # (Auto) 3.7 Lymph # (Auto) 1.7 [place] # (Auto) 0.7 Eos # (Auto) 0.2 Baso # (Auto) 0.1 Immature Gran # (Auto) 0.03 H Absolute Nucleated RBC 0.00 Immature Gran % 1 H Nucleated RBC % 0 ESR 19 H Sodium 136 Potassium 3.7 Chloride 104 Carbon Dioxide 23.9 Anion Gap 8 BUN 18 Creatinine 1.1 Estim Creat Clear Calc 109.6 eGFR > 60 BUN/Creatinine Ratio 16 Glucose 96 Calculated Osmolality 273 L Calcium 10.3 Corrected Calcium 10.4 H Total Bilirubin 0.4 AST 16 ALT 13 Alkaline Phosphatase 67 C-Reactive Prot, Quant 0.7 Total Protein 6.2 Albumin 3.9 Globulin 2.3 Albumin/Globulin Ratio 1.7 Assessment & Plan A&P Narrative osteo of foot dm II be sure that circulation ok po rx is a good option if there is good micro and a good response to rx. we have a good response to rx, but not good micro will see again prn if you want him on po rx, then keflex 1000 qid and doxy 100 bid reasonable empiric rx if home on iv or po. then recommend weekly cbc, renal panel, esr on rx and f/u with primary amy in regard to circulation po rx is empirical, so if we it fails, then iv rx would be preferred will see again prn. Time Spent With Patient Time: Total time spent is greater than 50% in coordination of care (as documented) at patient's floor/unit and/or counseling patient:
[2024-01-31 13:57] LABS: HIV (1&2) Antibody Rapid Non-Reactive
--- NOTE | 2024-01-31 14:42 | PD.RESDS ---
Planned Discharge Date 01/31/24 DS: Providers Provider Date of admission: 01/24/24 15:45 Primary care physician: Silviano Linares MD Admitting Provider: Kourtney Nash MD Attending Provider on Admission: Jose Silva MD Consults: 01/24/24 13:43 Consult to Infectious Diseases Stat Comment: Consulting Provider: Jose Block 01/24/24 15:50 Consult to Nephrology Stat Comment: Consulting Provider: Molly Chadwick 01/25/24 09:54 Referral Registered Dietitian Routine Comment: Instructions: wound Referral Wound Care Routine Comment: 01/25/24 10:58 Referral OP Wound Healing Dept Routine Comment: Instructions: Left 2nd toe DM ulcer, truama from socks/offloading boot 01/26/24 11:31 Consult to General Surgery Stat Comment: Consulting Provider: Rebeka Nunn Attending Provider on DC: Vargas Philippe MD Discharging Provider: Vargas Philippe MD DS: Diagnosis Problem List Completed Was Problem List Reviewed/Reconciled?: Yes Hospital Course Hospital Course Hospital course: Patient is a 48 years old male with past medical history of right eye glaucoma s/p enucleation and prosthetic eye, DM2, hypertension, 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 On admission he had stable vitals, labs showed WBCs of 11.1. He had unsuccessful PICC line placement on the day of admission due to occlusive disease on the right JV. Left JV PICC line was deferred due to HD fistula. He underwent central line was placement and was started on doxycycline and ceftriaxone IV. X-Ray showed osteomyelitis distal phalanx first digit with pathologic fracture. General surgery was consulted but the patient refused surgical management. LLE duplex showed abnormal monophasic flow in the dorsalis pedis artery, consistent with small vessel arterial disease. CTA was not performed due to patient being s/p kidney transplant. Infectious disease were consulted for PO outpatient antibiotic selection. Today he is stable for discharge after central line is removed. Recommendations: Start taking cephalexin 1000 mg 4 times a day for 6 week. Start taking doxycycline 100 mg twice daily for 6 weeks. Follow up with PCP within 1 week. You will need to have weekly labs including CBC, renal panel, ESR. Follow up with PCP to arrange weekly labs. Problem list: #Osteomyelitis of distal phalanx of first digit left foot, failed outpatient antibiotics. #Diabetic foot. #Leukocytosis. #PAD. #Hx DM 2. #Hx of right BKA secondary to osteomyelitis of right foot. #CKD s/p right kidney transplant. #Hx of right kidney transplant. #Immunocompromised state due to medical therapy. #Hx of hypertension. #Hx of glaucoma s/p prosthetic eye. Plan of care discussed with attending Dr. Silva. Vargas Philippe MD, PGY 2. Disclaimer: This note was dictated by speech recognition. Minor errors in corporate tax manager may be present due to voice recognition software. Time Spent with Patient Time attestation: Total time spent providing and/or coordinating discharge services: Exam Vital Signs Temp Pulse Resp BP Pulse Ox O2 Del Method O2 Flow Rate 97.5 F 64 17 175/87 H 96 Room Air 3 01/31/24 12:00 01/31/24 13:41 01/31/24 12:00 01/31/24 13:41 01/31/24 12:00 01/31/24 12:00 01/30/24 00:00 Narrative Exam Gen: Well-developed and well-nourished male. HEENT: NCAT, Rt prosthetic eye, Lt EOMI, MMM, anicteric conjunctivae. CVS: normal S1 and S2. RRR. No M/R/G. Resp: CTA B/L. No rhonchi, rales, crackles or wheezing. Abd: soft, non-tender, non-distended. BS+ in all 4 quadrants. MSK: Good ROM in BUE & LLE. Rt BKA. No edema or rash. Neuro: CN II-XII grossly intact. Strength 5/5 in BUE & LLE. Alert and oriented x3. Psych: appropriate mood and affect. Discharge Plan Plan Patient Disposition: HOME (Self Care) Patient condition on transfer: Stable Care Plan Goals: Start taking cephalexin 1000 mg 4 times a day for 6 week. Start taking doxycycline 100 mg twice daily for 6 weeks. Follow up with PCP within 1 week. You will need to have weekly labs including CBC, renal panel, ESR. Follow up with PCP to arrange weekly labs. Prescriptions/Referrals Prescriptions/Med Rec: New cephalexin 500 mg capsule 1,000 mg PO QID Qty: 90 2RF doxycycline hyclate 100 mg capsule 100 mg PO BID Qty: 60 2RF Continued clonidine HCl 0.3 MG tablet 0.1 mg PO TID Qty: 0 hydralazine 100 mg Tablet 50 mg PO TID Qty: 0 hydrocodone-acetaminophen 10-325 mg Tablet 1 tab PO TID PRN (Reason: Back Pain) Qty: 0 carvedilol 25 mg tablet 25 mg PO BID Patient Comments: TAKE ONE TABLET BY MOUTH TWICE DAILY nifedipine 90 mg tablet extended release 90 mg PO QDAY Patient Comments: TAKE ONE TABLET BY MOUTH EVERY DAY mycophenolate mofetil 250 mg capsule 250 mg PO BID Patient Comments: TAKE THREE CAPSULES BY MOUTH TWICE DAILY prednisone 5 mg tablet 5 mg PO QDAY Patient Comments: TAKE ONE TABLET BY MOUTH EVERY DAY alprazolam 0.5 mg tablet 0.5 mg PO TID PRN (Reason: Anxiety) tacrolimus 1 mg capsule 1 mg PO BID Patient Comments: TAKE ONE CAPSULE BY MOUTH EVERY MORNING AND TAKE TWO CAPSULES EVERY EVENING tacrolimus 0.5 mg capsule 0.5 mg PO QDAY Patient Comments: TAKE ONE CAPSULE BY MOUTH EVERY MORNING WITH ONE MG FOR total 1.5 MG EVERY MORNING insulin aspart U-100 [Novolog FlexPen U-100 Insulin] 100 unit/mL (3 mL) insulin pen SUBCUT insulin glargine [Lantus Solostar U-100 Insulin] 100 unit/mL (3 mL) insulin pen 11 unit SUBCUT QDAY Referrals: Silviano Linares MD [Primary Care Provider] - Patient/Caregiver Discharge Instructions Discharge Activity: activity as tolerated Other Discharge Activity Instructions:: 1) Follow up at [facility], [address] [place] [address]. Call [phone] for appointment. 2) Wound care to left 2nd toe: swab with betadine twice a day. Keep site and scab clean and dry. Please cover with foam dressing while using offloading boot to avoid further truama to site. Education Materials: Nutrition for Wound Healing, Diabetes: Keeping Feet Healthy, Changing Dressing Dc, Your Diabetes Foot Care Program Print Language: Yakut Stand Alone Forms: [employer] Award Info., Patient Portal Info Letter Discharge Order Discharge Orders: Discharge (Routine); Ordered 01/31/24 Ordered By: Vargas Philippe Quality Discharge Quality Measures VTE prophylaxis Attestestation MD Attestation I discussed with and supervised the resident physician who took care of this patient. I agree with the assessment and discharge plan as above. Return to the emergency room or contact PCP for recurrent symptoms. Risks for noncompliance discussed.
--- NOTE | 2024-01-31 16:13 | PC.CM ---
Patient does not need IV abx. He will be sent home on PO meds.
[2024-01-31] MEDS: cephALEXin 250 MG CAPSULE 1000 MG PO (17:20)
[2024-01-31] MEDS: INSULIN LISPRO (AdmeLOG) 1 UNIT/0.01 ML UNIT SC (17:26)
--- NOTE | 2024-01-31 19:08 | PC.NURSE ---
CENTRAL LINE REMOVED PRIOR TO DISCHARGE. PT TOLERATED REMOVAL WELL, NO S/S OF ANY DISTRESS. PT WAS MONITORED POST REMOVABLE. NO A/D REACTIONS NOTED. PT IS STABLE AT TIME OF DISCHARGE.
== END 2024-01-31 19:15 | disposition home or self-care (01) | DRG 638 ==
LOC: SERX 14:35 → SERHOLD 16:05 → S3NX 19:34
PROVIDERS: Internal Medicine Infectious Disease; Nurse Practitioner Primary Care; Student in an Organized Health Care Education/Training Program; Admitting Provider Internal Medicine; Emergency Provider Emergency Medicine; PCP Family Medicine; Visit Provider Internal Medicine
DX: E11.69 Type 2 diabetes mellitus with other specified complication (principal); D84.821 Immunodeficiency due to drugs; M86.172 Other acute osteomyelitis, left ankle and foot; M84.475A Pathological fracture, left foot, initial encounter for fracture; Z94.0 Kidney transplant status; Z89.511 Acquired absence of right leg below knee; Z97.0 Presence of artificial eye; E11.22 Type 2 diabetes mellitus with diabetic chronic kidney disease; E11.65 Type 2 diabetes mellitus with hyperglycemia; R79.82 Elevated C-reactive protein (CRP); I12.9 Hypertensive chronic kidney disease with stage 1 through stage 4 chronic kidney disease, or unspecified chronic kidney disease; N18.9 Chronic kidney disease, unspecified
CPT/HCPCS: 36415; 73630; 77001; 80048; 80053; 83036; 83735; 84100; 85025; 85652; 86140; 86703; 87040; 93926; 96365; 96372; 99285; C1751; C1894; J0360; J0696; J1642; J1643; J1815; J3490; J7050; J7507; J7512; J7517; A9270; J1644

== ENCOUNTER → 2024-02-09 | Outpatient (CLI) | payer OTHER, MEDICAID, SELFPAY ==
[2024-02-09 09:28] LABS: Basophils # (Auto) 0.1 Thou/mm3 (0.0-0.2); Basophils % (Auto) 1 % (0-2.5); Eosinophils # (Auto) 0.2 Thou/mm3 (0.0-0.5); Eosinophils % (Auto) 3 % (0-10); Hematocrit 45.1 % (41.0-53.0); Hemoglobin 14.5 g/dL (13.5-16.0); Immature Granulocytes % (Auto) 1 % (0-0); Immature Granulocytes Auto 0.04 Thou/mm3 (0.00-0.00); Lymphocytes # (Auto) 1.7 Thou/mm3 (1.0-4.8); Lymphocytes % (Auto) 27 % (10-50); Mean Corpuscular HGB Conc 32.2 g/dl (31.0-37.0); Mean Corpuscular Hemoglobin 26.6 pg (25.0-35.0); Mean Corpuscular Volume 83 fL (80-100); Monocytes # (Auto) 0.8 Thou/mm3 (0.0-0.8); Monocytes % (Auto) 13 % (0-12); Neutrophils # (Auto) 3.4 Thou/mm3 (1.8-7.7); Neutrophils % (Auto) 55 % (37-80); Nucleated Red Blood Cell % 0 /100 WBC (0); Platelet Count 249 Thou/mm3 (140-440); RDW Standard Deviation 40.1 fL (35.1-43.9); Red Blood Count 5.45 Miln/mm3 (4.50-5.90); White Blood Count 6.1 Thou/mm3 (3.8-10.6)
[2024-02-09 10:04] LABS: Alanine Aminotransferase 15 U/L (10-49); Albumin, Serum 4.5 gm/dL (3.5-5.0); Alkaline Phosphatase 75 U/L (46-116); Anion Gap 8 (7-16); Aspartate Amino Transferase 18 U/L (0-34); BUN/Creatinine Ratio 16 Ratio (12-20); Bilirubin,Total 0.4 mg/dL (0.3-1.2); Blood Urea Nitrogen 19 mg/dL (9-23); C-Reactive Protein < 0.4 mg/dL (0.0-0.9); Calcium 10.7 mg/dL (8.3-10.6); Calcium (Corrected) 10.7 mg/dL (8.5-10.1); Chloride 102 mMol/L (98-107); Creatinine (Component) 1.2 mg/dL (0.6-1.3); Globulin 2.2 gm/dL (2.3-3.5); Glucose 166 mg/dL (74-106); Osmolality,Calculated 276 (275-295); Potassium 4.2 mMol/L (3.4-5.1); Sodium 135 mMol/L (136-145); Total Protein 6.7 gm/dL (5.7-8.2); eGFR > 60 See Note
[2024-02-09 10:24] LABS: Sed Rate (ESR) 8 mm/hr (0-15)
== END | disposition home or self-care (01) ==
PROVIDERS: PCP Internal Medicine; Referring Provider Internal Medicine; Visit Provider Internal Medicine
DX: M86.172 Other acute osteomyelitis, left ankle and foot (principal)
CPT/HCPCS: 36415; 80053; 85025; 85652; 86140

== ENCOUNTER → 2024-02-16 | Outpatient (CLI) | payer OTHER, MEDICAID, SELFPAY ==
[2024-02-16 10:18] LABS: Basophils # (Auto) 0.1 Thou/mm3 (0.0-0.2); Basophils % (Auto) 1 % (0-2.5); Eosinophils # (Auto) 0.1 Thou/mm3 (0.0-0.5); Eosinophils % (Auto) 2 % (0-10); Hematocrit 46.4 % (41.0-53.0); Hemoglobin 15.1 g/dL (13.5-16.0); Immature Granulocytes % (Auto) 0 % (0-0); Immature Granulocytes Auto 0.03 Thou/mm3 (0.00-0.00); Lymphocytes # (Auto) 2.2 Thou/mm3 (1.0-4.8); Lymphocytes % (Auto) 32 % (10-50); Mean Corpuscular HGB Conc 32.5 g/dl (31.0-37.0); Mean Corpuscular Hemoglobin 26.5 pg (25.0-35.0); Mean Corpuscular Volume 82 fL (80-100); Monocytes # (Auto) 0.8 Thou/mm3 (0.0-0.8); Monocytes % (Auto) 11 % (0-12); Neutrophils # (Auto) 3.8 Thou/mm3 (1.8-7.7); Neutrophils % (Auto) 54 % (37-80); Nucleated Red Blood Cell % 0 /100 WBC (0); Platelet Count 266 Thou/mm3 (140-440); RDW Standard Deviation 39.3 fL (35.1-43.9); Red Blood Count 5.69 Miln/mm3 (4.50-5.90); White Blood Count 7.1 Thou/mm3 (3.8-10.6)
[2024-02-16 10:28] LABS: Sed Rate (ESR) 12 mm/hr (0-15)
[2024-02-16 10:55] LABS: Alanine Aminotransferase 20 U/L (10-49); Albumin, Serum 4.8 gm/dL (3.5-5.0); Albumin/Globulin Ratio 2.3 (1.2-2.2); Alkaline Phosphatase 78 U/L (46-116); Anion Gap 10 (7-16); Aspartate Amino Transferase 16 U/L (0-34); BUN/Creatinine Ratio 18 Ratio (12-20); Bilirubin,Total 0.4 mg/dL (0.3-1.2); Blood Urea Nitrogen 22 mg/dL (9-23); C-Reactive Protein < 0.4 mg/dL (0.0-0.9); Calcium 10.6 mg/dL (8.3-10.6); Calcium (Corrected) 10.6 mg/dL (8.5-10.1); Carbon Dioxide 22.4 mMol/L (20.0-31.0); Chloride 104 mMol/L (98-107); Creatinine (Component) 1.2 mg/dL (0.6-1.3); Globulin 2.1 gm/dL (2.3-3.5); Glucose 109 mg/dL (74-106); Osmolality,Calculated 276 (275-295); Sodium 136 mMol/L (136-145); Total Protein 6.9 gm/dL (5.7-8.2); eGFR > 60 See Note
== END | disposition home or self-care (01) ==
PROVIDERS: PCP Family Medicine; Referring Provider Internal Medicine; Visit Provider Internal Medicine
DX: M86.172 Other acute osteomyelitis, left ankle and foot (principal); E11.65 Type 2 diabetes mellitus with hyperglycemia; Z94.0 Kidney transplant status
CPT/HCPCS: 36415; 80053; 85025; 85652; 86140

== ENCOUNTER → 2024-02-20 | Outpatient (CLI) | payer OTHER, MEDICAID, SELFPAY | END | disposition home or self-care (01) | PROVIDERS: PCP Family Medicine; Referring Provider Family Medicine; Visit Provider Student in an Organized Health Care Education/Training Program | DX: L97.528 Non-pressure chronic ulcer of other part of left foot with other specified severity (principal); M86.172 Other acute osteomyelitis, left ankle and foot; E11.65 Type 2 diabetes mellitus with hyperglycemia; Z94.0 Kidney transplant status; H40.9 Unspecified glaucoma; Z90.01 Acquired absence of eye; I25.10 Atherosclerotic heart disease of native coronary artery without angina pectoris; D64.9 Anemia, unspecified; I73.9 Peripheral vascular disease, unspecified; E11.40 Type 2 diabetes mellitus with diabetic neuropathy, unspecified; Z79.4 Long term (current) use of insulin; Z79.84 Long term (current) use of oral hypoglycemic drugs | CPT/HCPCS: 97597; 99213; A9270; G0463 ==

== ENCOUNTER → 2024-02-23 | Outpatient (CLI) | payer OTHER, MEDICAID, SELFPAY ==
[2024-02-23 09:40] LABS: Glucose Estimated Average 189 mg/dL (80-131); Hemoglobin A1C 8.2 % Hgb (4.8-6.0)
[2024-02-23 09:53] LABS: Alanine Aminotransferase 19 U/L (10-49); Albumin, Serum 4.4 gm/dL (3.5-5.0); Albumin/Globulin Ratio 2.1 (1.2-2.2); Alkaline Phosphatase 65 U/L (46-116); Anion Gap 8 (7-16); Aspartate Amino Transferase 18 U/L (0-34); BUN/Creatinine Ratio 16 Ratio (12-20); Bilirubin,Total 0.5 mg/dL (0.3-1.2); Blood Urea Nitrogen 19 mg/dL (9-23); C-Reactive Protein < 0.4 mg/dL (0.0-0.9); Calcium 10.3 mg/dL (8.3-10.6); Calcium (Corrected) 10.3 mg/dL (8.5-10.1); Carbon Dioxide 23.6 mMol/L (20.0-31.0); Chloride 103 mMol/L (98-107); Creatinine (Component) 1.2 mg/dL (0.6-1.3); Globulin 2.1 gm/dL (2.3-3.5); Glucose 143 mg/dL (74-106); Osmolality,Calculated 274 (275-295); Potassium 4.3 mMol/L (3.4-5.1); Sodium 135 mMol/L (136-145); Total Protein 6.5 gm/dL (5.7-8.2); eGFR > 60 See Note
[2024-02-23 11:08] LABS: Creatinine MALB Rnd Ur 120 mg/dL (30-125); Microalbumin Creat Ratio 35 mg/gCrea (<30); Microalbumin, Random Urine 42 mg/L (0-300)
[2024-02-23 11:16] LABS: Sed Rate (ESR) 9 mm/hr (0-15)
== END | disposition home or self-care (01) ==
LOC: COPL 08:51
PROVIDERS: PCP Internal Medicine; Referring Provider Internal Medicine; Visit Provider Internal Medicine
DX: M86.172 Other acute osteomyelitis, left ankle and foot (principal); Z94.0 Kidney transplant status; E11.22 Type 2 diabetes mellitus with diabetic chronic kidney disease; N18.9 Chronic kidney disease, unspecified
CPT/HCPCS: 36415; 80053; 82043; 82570; 83036; 85652; 86140

== ENCOUNTER → 2024-03-01 | Outpatient (CLI) | payer OTHER, MEDICAID, SELFPAY ==
[2024-03-01 11:32] LABS: Basophils # (Auto) 0.1 Thou/mm3 (0.0-0.2); Basophils % (Auto) 1 % (0-2.5); Eosinophils # (Auto) 0.1 Thou/mm3 (0.0-0.5); Eosinophils % (Auto) 2 % (0-10); Hematocrit 46.6 % (41.0-53.0); Hemoglobin 15.3 g/dL (13.5-16.0); Immature Granulocytes % (Auto) 1 % (0-0); Immature Granulocytes Auto 0.04 Thou/mm3 (0.00-0.00); Lymphocytes # (Auto) 1.7 Thou/mm3 (1.0-4.8); Lymphocytes % (Auto) 25 % (10-50); Mean Corpuscular HGB Conc 32.8 g/dl (31.0-37.0); Mean Corpuscular Hemoglobin 27.4 pg (25.0-35.0); Mean Corpuscular Volume 83 fL (80-100); Monocytes # (Auto) 0.6 Thou/mm3 (0.0-0.8); Monocytes % (Auto) 9 % (0-12); Neutrophils # (Auto) 4.3 Thou/mm3 (1.8-7.7); Neutrophils % (Auto) 63 % (37-80); Nucleated Red Blood Cell % 0 /100 WBC (0); Platelet Count 241 Thou/mm3 (140-440); RDW Standard Deviation 40.4 fL (35.1-43.9); Red Blood Count 5.59 Miln/mm3 (4.50-5.90); White Blood Count 6.9 Thou/mm3 (3.8-10.6)
[2024-03-01 11:50] LABS: Alanine Aminotransferase 32 U/L (10-49); Albumin, Serum 4.6 gm/dL (3.5-5.0); Alkaline Phosphatase 71 U/L (46-116); Anion Gap 9 (7-16); Aspartate Amino Transferase 36 U/L (0-34); BUN/Creatinine Ratio 19 Ratio (12-20); Bilirubin,Total 0.5 mg/dL (0.3-1.2); Blood Urea Nitrogen 26 mg/dL (9-23); C-Reactive Protein 0.5 mg/dL (0.0-0.9); Calcium 11.1 mg/dL (8.3-10.6); Calcium (Corrected) 11.1 mg/dL (8.5-10.1); Carbon Dioxide 24.4 mMol/L (20.0-31.0); Chloride 101 mMol/L (98-107); Creatinine (Component) 1.4 mg/dL (0.6-1.3); Globulin 2.3 gm/dL (2.3-3.5); Glucose 88 mg/dL (74-106); Osmolality,Calculated 271 (275-295); Potassium 4.2 mMol/L (3.4-5.1); Sodium 134 mMol/L (136-145); Total Protein 6.9 gm/dL (5.7-8.2); eGFR > 60 See Note
[2024-03-01 11:53] LABS: Sed Rate (ESR) 10 mm/hr (0-15)
== END | disposition home or self-care (01) ==
PROVIDERS: PCP Internal Medicine; Referring Provider Internal Medicine; Visit Provider Internal Medicine
DX: M86.172 Other acute osteomyelitis, left ankle and foot (principal); Z94.0 Kidney transplant status; E11.22 Type 2 diabetes mellitus with diabetic chronic kidney disease; N18.9 Chronic kidney disease, unspecified
CPT/HCPCS: 36415; 80053; 85025; 85652; 86140

== ENCOUNTER → 2024-03-01 | Outpatient (CLI) | payer OTHER, MEDICAID, SELFPAY | END | disposition home or self-care (01) | LOC: SWHD 08:54 | PROVIDERS: PCP Family Medicine; Referring Provider Family Medicine; Visit Provider Student in an Organized Health Care Education/Training Program | DX: L97.522 Non-pressure chronic ulcer of other part of left foot with fat layer exposed (principal); M86.172 Other acute osteomyelitis, left ankle and foot; Z94.0 Kidney transplant status; H40.9 Unspecified glaucoma; Z90.01 Acquired absence of eye; I25.10 Atherosclerotic heart disease of native coronary artery without angina pectoris; D64.9 Anemia, unspecified; I73.9 Peripheral vascular disease, unspecified; E11.40 Type 2 diabetes mellitus with diabetic neuropathy, unspecified; Z79.84 Long term (current) use of oral hypoglycemic drugs; Z79.4 Long term (current) use of insulin | CPT/HCPCS: 97597 ==

== ENCOUNTER → 2024-03-08 | Outpatient (CLI) | payer MEDICARE, MEDICAID, SELFPAY | END | disposition home or self-care (01) | LOC: SWHD 10:46 | PROVIDERS: PCP Family Medicine; Referring Provider Family Medicine; Visit Provider Student in an Organized Health Care Education/Training Program | DX: L97.522 Non-pressure chronic ulcer of other part of left foot with fat layer exposed (principal); M86.172 Other acute osteomyelitis, left ankle and foot; Z94.0 Kidney transplant status; H40.9 Unspecified glaucoma; Z90.01 Acquired absence of eye; I25.10 Atherosclerotic heart disease of native coronary artery without angina pectoris; D64.9 Anemia, unspecified; I73.9 Peripheral vascular disease, unspecified; E11.40 Type 2 diabetes mellitus with diabetic neuropathy, unspecified; Z79.84 Long term (current) use of oral hypoglycemic drugs; Z79.4 Long term (current) use of insulin | CPT/HCPCS: 97597 ==

== ENCOUNTER → 2024-03-08 | Outpatient (CLI) | payer MEDICARE, MEDICAID, SELFPAY ==
[2024-03-08 10:27] LABS: Basophils # (Auto) 0.1 Thou/mm3 (0.0-0.2); Basophils % (Auto) 1 % (0-2.5); Eosinophils # (Auto) 0.1 Thou/mm3 (0.0-0.5); Eosinophils % (Auto) 2 % (0-10); Hematocrit 44.5 % (41.0-53.0); Hemoglobin 14.3 g/dL (13.5-16.0); Immature Granulocytes % (Auto) 0 % (0-0); Immature Granulocytes Auto 0.02 Thou/mm3 (0.00-0.00); Lymphocytes # (Auto) 1.8 Thou/mm3 (1.0-4.8); Lymphocytes % (Auto) 26 % (10-50); Mean Corpuscular HGB Conc 32.1 g/dl (31.0-37.0); Mean Corpuscular Hemoglobin 26.4 pg (25.0-35.0); Mean Corpuscular Volume 82 fL (80-100); Monocytes # (Auto) 0.9 Thou/mm3 (0.0-0.8); Monocytes % (Auto) 14 % (0-12); Neutrophils % (Auto) 57 % (37-80); Nucleated Red Blood Cell % 0 /100 WBC (0); Platelet Count 233 Thou/mm3 (140-440); RDW Standard Deviation 39.6 fL (35.1-43.9); Red Blood Count 5.41 Miln/mm3 (4.50-5.90)
[2024-03-08 10:51] LABS: Alanine Aminotransferase 22 U/L (10-49); Albumin, Serum 4.5 gm/dL (3.5-5.0); Albumin/Globulin Ratio 1.9 (1.2-2.2); Alkaline Phosphatase 61 U/L (46-116); Anion Gap 8 (7-16); Aspartate Amino Transferase 20 U/L (0-34); BUN/Creatinine Ratio 24 Ratio (12-20); Bilirubin,Total 0.5 mg/dL (0.3-1.2); Blood Urea Nitrogen 29 mg/dL (9-23); Calcium 10.4 mg/dL (8.3-10.6); Calcium (Corrected) 10.4 mg/dL (8.5-10.1); Carbon Dioxide 20.6 mMol/L (20.0-31.0); Chloride 103 mMol/L (98-107); Creatinine (Component) 1.2 mg/dL (0.6-1.3); Globulin 2.4 gm/dL (2.3-3.5); Glucose 124 mg/dL (74-106); Osmolality,Calculated 271 (275-295); Potassium 4.4 mMol/L (3.4-5.1); Sodium 132 mMol/L (136-145); Total Protein 6.9 gm/dL (5.7-8.2); eGFR > 60 See Note
[2024-03-08 10:59] LABS: Sed Rate (ESR) 14 mm/hr (0-15)
== END | disposition home or self-care (01) ==
PROVIDERS: PCP Family Medicine; Referring Provider Internal Medicine; Visit Provider Internal Medicine
DX: M86.172 Other acute osteomyelitis, left ankle and foot (principal); Z94.0 Kidney transplant status; E11.22 Type 2 diabetes mellitus with diabetic chronic kidney disease
CPT/HCPCS: 36415; 80053; 85025; 85652; 86140

== ENCOUNTER → 2024-03-15 | Outpatient (CLI) | payer MEDICARE, MEDICAID, SELFPAY ==
[2024-03-15 16:36] LABS: Basophils # (Auto) 0.1 Thou/mm3 (0.0-0.2); Basophils % (Auto) 1 % (0-2.5); Eosinophils # (Auto) 0.1 Thou/mm3 (0.0-0.5); Eosinophils % (Auto) 1 % (0-10); Hematocrit 45.8 % (41.0-53.0); Immature Granulocytes % (Auto) 0 % (0-0); Immature Granulocytes Auto 0.04 Thou/mm3 (0.00-0.00); Lymphocytes # (Auto) 1.3 Thou/mm3 (1.0-4.8); Lymphocytes % (Auto) 12 % (10-50); Mean Corpuscular HGB Conc 32.8 g/dl (31.0-37.0); Mean Corpuscular Hemoglobin 26.8 pg (25.0-35.0); Mean Corpuscular Volume 82 fL (80-100); Monocytes # (Auto) 0.7 Thou/mm3 (0.0-0.8); Monocytes % (Auto) 6 % (0-12); Neutrophils # (Auto) 8.8 Thou/mm3 (1.8-7.7); Neutrophils % (Auto) 81 % (37-80); Nucleated Red Blood Cell % 0 /100 WBC (0); Platelet Count 259 Thou/mm3 (140-440); RDW Standard Deviation 39.7 fL (35.1-43.9); White Blood Count 10.9 Thou/mm3 (3.8-10.6)
[2024-03-15 16:48] LABS: Sed Rate (ESR) 9 mm/hr (0-15)
[2024-03-15 17:03] LABS: Alanine Aminotransferase 23 U/L (10-49); Albumin, Serum 4.7 gm/dL (3.5-5.0); Alkaline Phosphatase 83 U/L (46-116); Anion Gap 10 (7-16); Aspartate Amino Transferase 24 U/L (0-34); BUN/Creatinine Ratio 25 Ratio (12-20); Bilirubin,Total 0.4 mg/dL (0.3-1.2); Blood Urea Nitrogen 30 mg/dL (9-23); C-Reactive Protein < 0.4 mg/dL (0.0-0.9); Calcium 10.4 mg/dL (8.3-10.6); Calcium (Corrected) 10.4 mg/dL (8.5-10.1); Carbon Dioxide 23.2 mMol/L (20.0-31.0); Chloride 101 mMol/L (98-107); Creatinine (Component) 1.2 mg/dL (0.6-1.3); Globulin 2.4 gm/dL (2.3-3.5); Glucose 122 mg/dL (74-106); Osmolality,Calculated 275 (275-295); Potassium 5.1 mMol/L (3.4-5.1); Sodium 134 mMol/L (136-145); Total Protein 7.1 gm/dL (5.7-8.2); eGFR > 60 See Note
== END | disposition home or self-care (01) ==
LOC: COPL 15:14
PROVIDERS: PCP Internal Medicine; Referring Provider Internal Medicine; Visit Provider Internal Medicine
DX: M86.172 Other acute osteomyelitis, left ankle and foot (principal); Z94.0 Kidney transplant status; E11.22 Type 2 diabetes mellitus with diabetic chronic kidney disease; N18.9 Chronic kidney disease, unspecified
CPT/HCPCS: 36415; 80053; 85025; 85652; 86140

== ENCOUNTER → 2024-03-22 | Outpatient (CLI) | payer MEDICARE, SELFPAY ==
[2024-03-22 10:19] LABS: Basophils # (Auto) 0.1 Thou/mm3 (0.0-0.2); Basophils % (Auto) 1 % (0-2.5); Eosinophils # (Auto) 0.1 Thou/mm3 (0.0-0.5); Eosinophils % (Auto) 1 % (0-10); Hematocrit 43.2 % (41.0-53.0); Hemoglobin 14.1 g/dL (13.5-16.0); Immature Granulocytes % (Auto) 1 % (0-0); Immature Granulocytes Auto 0.05 Thou/mm3 (0.00-0.00); Lymphocytes # (Auto) 1.5 Thou/mm3 (1.0-4.8); Lymphocytes % (Auto) 19 % (10-50); Mean Corpuscular HGB Conc 32.6 g/dl (31.0-37.0); Mean Corpuscular Hemoglobin 26.1 pg (25.0-35.0); Mean Corpuscular Volume 80 fL (80-100); Monocytes # (Auto) 0.9 Thou/mm3 (0.0-0.8); Monocytes % (Auto) 11 % (0-12); Neutrophils # (Auto) 5.4 Thou/mm3 (1.8-7.7); Neutrophils % (Auto) 68 % (37-80); Nucleated Red Blood Cell % 0 /100 WBC (0); Platelet Count 246 Thou/mm3 (140-440); RDW Standard Deviation 38.6 fL (35.1-43.9)
[2024-03-22 10:44] LABS: Alanine Aminotransferase 21 U/L (10-49); Albumin, Serum 4.6 gm/dL (3.5-5.0); Albumin/Globulin Ratio 2.2 (1.2-2.2); Alkaline Phosphatase 70 U/L (46-116); Anion Gap 10 (7-16); Aspartate Amino Transferase 20 U/L (0-34); BUN/Creatinine Ratio 21 Ratio (12-20); Bilirubin,Total 0.4 mg/dL (0.3-1.2); Blood Urea Nitrogen 36 mg/dL (9-23); Calcium 10.8 mg/dL (8.3-10.6); Calcium (Corrected) 10.8 mg/dL (8.5-10.1); Carbon Dioxide 22.3 mMol/L (20.0-31.0); Chloride 101 mMol/L (98-107); Creatinine (Component) 1.7 mg/dL (0.6-1.3); Globulin 2.1 gm/dL (2.3-3.5); Glucose 185 mg/dL (74-106); Osmolality,Calculated 279 (275-295); Potassium 4.4 mMol/L (3.4-5.1); Sodium 133 mMol/L (136-145); Total Protein 6.7 gm/dL (5.7-8.2); eGFR 50 See Note
[2024-03-22 11:22] LABS: Sed Rate (ESR) 9 mm/hr (0-15)
[2024-03-22 11:37] LABS: Amphetamine/Methamp Scrn,U Negative (Negative); Barbiturate Screen,Urine Negative (Negative); Benzodiazepines Screen,Urine Positive (Negative); Benzoylecgonine Screen, Ur Negative (Negative); Fentanyl Screen,Urine Negative (Negative); Opiate Screen,Urine Positive (Negative); THC Screen,Urine Negative (Negative)
== END | disposition home or self-care (01) ==
LOC: COPL 09:43
PROVIDERS: PCP Family Medicine; Referring Provider Internal Medicine; Visit Provider Internal Medicine
DX: M86.172 Other acute osteomyelitis, left ankle and foot (principal); E11.22 Type 2 diabetes mellitus with diabetic chronic kidney disease; N18.9 Chronic kidney disease, unspecified; Z94.0 Kidney transplant status; M54.50 Low back pain, unspecified
CPT/HCPCS: 36415; 80053; 80307; 85025; 85652; 86140

== ENCOUNTER → 2024-03-22 | Outpatient (CLI) | payer MEDICARE, MEDICAID, SELFPAY | END | disposition home or self-care (01) | LOC: SWHD 08:00 | PROVIDERS: PCP Family Medicine; Referring Provider Family Medicine; Visit Provider Student in an Organized Health Care Education/Training Program | DX: E11.621 Type 2 diabetes mellitus with foot ulcer (principal); L97.522 Non-pressure chronic ulcer of other part of left foot with fat layer exposed; M86.172 Other acute osteomyelitis, left ankle and foot; Z94.0 Kidney transplant status; E11.22 Type 2 diabetes mellitus with diabetic chronic kidney disease; H40.9 Unspecified glaucoma; Z90.01 Acquired absence of eye; I25.10 Atherosclerotic heart disease of native coronary artery without angina pectoris; D64.9 Anemia, unspecified; I73.9 Peripheral vascular disease, unspecified; E11.40 Type 2 diabetes mellitus with diabetic neuropathy, unspecified; Z79.84 Long term (current) use of oral hypoglycemic drugs; Z79.4 Long term (current) use of insulin | CPT/HCPCS: 99213; A9270; G0463 ==

== ENCOUNTER → 2024-04-05 | Outpatient (CLI) | payer MEDICARE, SELFPAY | END | disposition home or self-care (01) | LOC: SWHD 08:54 | PROVIDERS: PCP Family Medicine; Referring Provider Family Medicine; Visit Provider Surgery | DX: E11.621 Type 2 diabetes mellitus with foot ulcer (principal); L97.526 Non-pressure chronic ulcer of other part of left foot with bone involvement without evidence of necrosis; M86.172 Other acute osteomyelitis, left ankle and foot; Z94.0 Kidney transplant status; E11.22 Type 2 diabetes mellitus with diabetic chronic kidney disease; H40.9 Unspecified glaucoma; Z90.01 Acquired absence of eye; I25.10 Atherosclerotic heart disease of native coronary artery without angina pectoris; D64.9 Anemia, unspecified; I73.9 Peripheral vascular disease, unspecified; E11.40 Type 2 diabetes mellitus with diabetic neuropathy, unspecified; Z79.4 Long term (current) use of insulin; Z79.84 Long term (current) use of oral hypoglycemic drugs | CPT/HCPCS: 11042; A9270 ==

== ENCOUNTER → 2024-04-08 | Outpatient (CLI) | payer MEDICARE, MEDICAID, SELFPAY ==
[2024-04-08 11:43] LABS: Collection Type, Urine Clean Catch; Squamous Epithelial Cell,Urine 0 /hpf (0-5)
[2024-04-08 12:04] LABS: Basophils # (Auto) 0.1 Thou/mm3 (0.0-0.2); Basophils % (Auto) 1 % (0-2.5); Eosinophils # (Auto) 0.2 Thou/mm3 (0.0-0.5); Eosinophils % (Auto) 2 % (0-10); Hematocrit 45.7 % (41.0-53.0); Hemoglobin 14.3 g/dL (13.5-16.0); Immature Granulocytes % (Auto) 0 % (0-0); Immature Granulocytes Auto 0.03 Thou/mm3 (0.00-0.00); Lymphocytes # (Auto) 1.2 Thou/mm3 (1.0-4.8); Lymphocytes % (Auto) 17 % (10-50); Mean Corpuscular HGB Conc 31.3 g/dl (31.0-37.0); Mean Corpuscular Hemoglobin 26.2 pg (25.0-35.0); Mean Corpuscular Volume 84 fL (80-100); Monocytes # (Auto) 0.5 Thou/mm3 (0.0-0.8); Monocytes % (Auto) 8 % (0-12); Neutrophils # (Auto) 5.1 Thou/mm3 (1.8-7.7); Neutrophils % (Auto) 72 % (37-80); Nucleated Red Blood Cell % 0 /100 WBC (0); Platelet Count 240 Thou/mm3 (140-440); RDW Standard Deviation 41.9 fL (35.1-43.9); Red Blood Count 5.46 Miln/mm3 (4.50-5.90); White Blood Count 7.1 Thou/mm3 (3.8-10.6)
[2024-04-08 12:14] LABS: Glucose Estimated Average 157 mg/dL (80-131); Hemoglobin A1C 7.1 % Hgb (4.8-6.0)
[2024-04-08 12:14] LABS: Bilirubin,Urine Negative (Negative); Blood,Urine Negative (Negative); Clarity,Urine Clear (Clear/Hazy); Color,Urine Yellow (Lt Yel-Yel); Glucose, Urine Negative (Negative); Hyaline Casts,Urine < 1 /hpf (0-1); Ketones,Urine Negative (Negative); Leukocyte Esterase,Urine Negative (Negative); Nitrite,Urine Negative (Negative); PH,Urine 5.5 (5.0-7.0); Protein,Urine 1+ (Neg - Trace); RBC,Urine 1 /hpf (0-3); Specific Gravity,Urine 1.026 (1.001-1.035); Urobilinogen,Urine Negative mg/dL (0.0-1.0); WBC,Urine 2 /hpf (0-5)
[2024-04-08 12:16] LABS: Alanine Aminotransferase 25 U/L (10-49); Albumin, Serum 4.4 gm/dL (3.5-5.0); Albumin/Globulin Ratio 1.9 (1.2-2.2); Alkaline Phosphatase 65 U/L (46-116); Anion Gap 9 (7-16); Aspartate Amino Transferase 23 U/L (0-34); BUN/Creatinine Ratio 15 Ratio (12-20); Bilirubin,Total 0.5 mg/dL (0.3-1.2); Blood Urea Nitrogen 16 mg/dL (9-23); C-Reactive Protein 0.5 mg/dL (0.0-0.9); Calcium 10.3 mg/dL (8.3-10.6); Calcium (Corrected) 10.3 mg/dL (8.5-10.1); Chloride 105 mMol/L (98-107); Creatinine (Component) 1.1 mg/dL (0.6-1.3); Globulin 2.3 gm/dL (2.3-3.5); Glucose 75 mg/dL (74-106); Osmolality,Calculated 275 (275-295); Phosphorous 2.9 mg/dL (2.4-5.1); Potassium 4.6 mMol/L (3.4-5.1); Sodium 138 mMol/L (136-145); Total Protein 6.7 gm/dL (5.7-8.2); eGFR > 60 See Note
[2024-04-08 12:19] LABS: Sperm,Urine Present
[2024-04-08 12:53] LABS: Sed Rate (ESR) 7 mm/hr (0-15)
== END | disposition home or self-care (01) ==
LOC: COPL 11:06
PROVIDERS: PCP Family Medicine; Referring Provider Internal Medicine; Visit Provider Internal Medicine Nephrology
DX: M86.172 Other acute osteomyelitis, left ankle and foot (principal); Z94.0 Kidney transplant status; E11.22 Type 2 diabetes mellitus with diabetic chronic kidney disease; N18.9 Chronic kidney disease, unspecified; I73.9 Peripheral vascular disease, unspecified
CPT/HCPCS: 36415; 80053; 80197; 81001; 83036; 84100; 85025; 85652; 86140

== ENCOUNTER → 2024-04-19 | Outpatient (CLI) | payer MEDICARE, MEDICAID, SELFPAY | END | disposition home or self-care (01) | LOC: SWHD 09:09 | PROVIDERS: PCP Family Medicine; Referring Provider Family Medicine; Visit Provider Surgery | DX: E11.621 Type 2 diabetes mellitus with foot ulcer (principal); L97.522 Non-pressure chronic ulcer of other part of left foot with fat layer exposed; M86.172 Other acute osteomyelitis, left ankle and foot; Z94.0 Kidney transplant status; E11.22 Type 2 diabetes mellitus with diabetic chronic kidney disease; H40.9 Unspecified glaucoma; Z90.01 Acquired absence of eye; I25.10 Atherosclerotic heart disease of native coronary artery without angina pectoris; I73.9 Peripheral vascular disease, unspecified; D64.9 Anemia, unspecified; E11.40 Type 2 diabetes mellitus with diabetic neuropathy, unspecified; Z79.4 Long term (current) use of insulin; Z79.84 Long term (current) use of oral hypoglycemic drugs | CPT/HCPCS: 11042; A9270 ==

== ENCOUNTER → 2024-04-26 | Outpatient (CLI) | payer MEDICARE, MEDICAID, SELFPAY | END | disposition home or self-care (01) | PROVIDERS: PCP Family Medicine; Referring Provider Family Medicine; Visit Provider Surgery | DX: E11.621 Type 2 diabetes mellitus with foot ulcer (principal); L97.526 Non-pressure chronic ulcer of other part of left foot with bone involvement without evidence of necrosis; M86.172 Other acute osteomyelitis, left ankle and foot; Z94.0 Kidney transplant status; E11.22 Type 2 diabetes mellitus with diabetic chronic kidney disease; H20.9 Unspecified iridocyclitis; Z90.01 Acquired absence of eye; I25.10 Atherosclerotic heart disease of native coronary artery without angina pectoris; I73.9 Peripheral vascular disease, unspecified; D64.9 Anemia, unspecified; E11.40 Type 2 diabetes mellitus with diabetic neuropathy, unspecified; Z79.4 Long term (current) use of insulin; Z79.84 Long term (current) use of oral hypoglycemic drugs | CPT/HCPCS: 99212; A9270; G0463 ==

== ENCOUNTER → 2024-05-03 | Outpatient (CLI) | payer MEDICARE, MEDICAID, SELFPAY | END | disposition home or self-care (01) | PROVIDERS: PCP Family Medicine; Referring Provider Family Medicine; Visit Provider Surgery | DX: E11.621 Type 2 diabetes mellitus with foot ulcer (principal); L97.522 Non-pressure chronic ulcer of other part of left foot with fat layer exposed; M86.172 Other acute osteomyelitis, left ankle and foot; Z94.0 Kidney transplant status; E11.22 Type 2 diabetes mellitus with diabetic chronic kidney disease; H20.9 Unspecified iridocyclitis; Z90.01 Acquired absence of eye; I25.10 Atherosclerotic heart disease of native coronary artery without angina pectoris; I73.9 Peripheral vascular disease, unspecified; D64.9 Anemia, unspecified; E11.40 Type 2 diabetes mellitus with diabetic neuropathy, unspecified; Z79.4 Long term (current) use of insulin; Z79.84 Long term (current) use of oral hypoglycemic drugs | CPT/HCPCS: 11042; A9270 ==

== ENCOUNTER → 2024-05-08 | Outpatient (CLI) | payer MEDICARE, MEDICAID, SELFPAY ==
[2024-05-15 06:44] LABS: Tacrolimus,highly sensitive* 4.3 mcg/L (5.0-20.0)
== END | disposition home or self-care (01) ==
LOC: COPL 08:55
PROVIDERS: PCP Family Medicine; Referring Provider Internal Medicine Nephrology; Visit Provider Internal Medicine Nephrology
DX: Z94.0 Kidney transplant status (principal)
CPT/HCPCS: 36415; 80197

== ENCOUNTER → 2024-05-10 | Outpatient (CLI) | payer MEDICARE, MEDICAID, SELFPAY | END | disposition home or self-care (01) | PROVIDERS: PCP Family Medicine; Referring Provider Family Medicine; Visit Provider Physician Assistant | DX: E11.621 Type 2 diabetes mellitus with foot ulcer (principal); L97.522 Non-pressure chronic ulcer of other part of left foot with fat layer exposed; M86.172 Other acute osteomyelitis, left ankle and foot; E11.40 Type 2 diabetes mellitus with diabetic neuropathy, unspecified; Z79.4 Long term (current) use of insulin; Z79.84 Long term (current) use of oral hypoglycemic drugs; I25.10 Atherosclerotic heart disease of native coronary artery without angina pectoris; I73.9 Peripheral vascular disease, unspecified; Z94.0 Kidney transplant status; H20.9 Unspecified iridocyclitis; Z90.01 Acquired absence of eye; D64.9 Anemia, unspecified | CPT/HCPCS: 99213; A9270; G0463 ==

== ENCOUNTER → 2024-05-24 | Outpatient (CLI) | payer MEDICARE, MEDICAID, SELFPAY | END | disposition home or self-care (01) | PROVIDERS: PCP Family Medicine; Referring Provider Family Medicine; Visit Provider Surgery | DX: E11.621 Type 2 diabetes mellitus with foot ulcer (principal); L97.522 Non-pressure chronic ulcer of other part of left foot with fat layer exposed; M86.172 Other acute osteomyelitis, left ankle and foot; Z94.0 Kidney transplant status; E11.22 Type 2 diabetes mellitus with diabetic chronic kidney disease; H20.9 Unspecified iridocyclitis; Z90.01 Acquired absence of eye; I25.10 Atherosclerotic heart disease of native coronary artery without angina pectoris; I73.9 Peripheral vascular disease, unspecified; D64.9 Anemia, unspecified; E11.40 Type 2 diabetes mellitus with diabetic neuropathy, unspecified; Z79.4 Long term (current) use of insulin; Z79.84 Long term (current) use of oral hypoglycemic drugs | CPT/HCPCS: 11042; A9270 ==

== ENCOUNTER → 2024-05-31 | Outpatient (CLI) | payer MEDICARE, MEDICAID, SELFPAY | END | disposition home or self-care (01) | LOC: SWHD 09:48 | PROVIDERS: PCP Family Medicine; Referring Provider Family Medicine; Visit Provider Surgery | DX: E11.621 Type 2 diabetes mellitus with foot ulcer (principal); L97.522 Non-pressure chronic ulcer of other part of left foot with fat layer exposed; S90.822A Blister (nonthermal), left foot, initial encounter; X58.XXXA Exposure to other specified factors, initial encounter; M86.172 Other acute osteomyelitis, left ankle and foot; E11.22 Type 2 diabetes mellitus with diabetic chronic kidney disease; H20.9 Unspecified iridocyclitis; Z90.01 Acquired absence of eye; I25.10 Atherosclerotic heart disease of native coronary artery without angina pectoris; I73.9 Peripheral vascular disease, unspecified; D64.9 Anemia, unspecified; E11.40 Type 2 diabetes mellitus with diabetic neuropathy, unspecified; Z79.84 Long term (current) use of oral hypoglycemic drugs; Z97.0 Presence of artificial eye; Z79.4 Long term (current) use of insulin | CPT/HCPCS: 99213; A9270; G0463 ==

== ENCOUNTER → 2024-06-07 | Outpatient (CLI) | payer MEDICARE, MEDICAID, SELFPAY | END | disposition home or self-care (01) | LOC: SWHD 09:13 | PROVIDERS: PCP Family Medicine; Referring Provider Family Medicine; Visit Provider Surgery | DX: E11.621 Type 2 diabetes mellitus with foot ulcer (principal); L97.522 Non-pressure chronic ulcer of other part of left foot with fat layer exposed; S90.822A Blister (nonthermal), left foot, initial encounter; X58.XXXA Exposure to other specified factors, initial encounter; M86.172 Other acute osteomyelitis, left ankle and foot; E11.22 Type 2 diabetes mellitus with diabetic chronic kidney disease; Z90.01 Acquired absence of eye; I25.10 Atherosclerotic heart disease of native coronary artery without angina pectoris; I73.9 Peripheral vascular disease, unspecified; D64.9 Anemia, unspecified; E11.40 Type 2 diabetes mellitus with diabetic neuropathy, unspecified; Z97.0 Presence of artificial eye; Z79.84 Long term (current) use of oral hypoglycemic drugs; Z79.4 Long term (current) use of insulin | CPT/HCPCS: 97597; A9270 ==

== ENCOUNTER → 2024-06-11 | Outpatient (CLI) | payer MEDICARE, MEDICAID, SELFPAY ==
--- NOTE | 2024-06-11 10:29 | EKG_ITS ---
[facility] Test Date: 2024-06-11 Pat Name: GREGORIA GANDARA Department: Room: - Gender: Male [employer] [employer] Operator: JOSUE : 1975 Requested By: Sherman Currie Order Number: [id number] Reading MD: Sherman Currie Measurements Intervals [place] Rate: 51 P: 51 MN: 190 QRS: 22 QRSD: 113 T: 64 QT: 430 QTc: 398 Interpretive Statements SINUS BRADYCARDIA MODERATE INTRAVENTRICULAR CONDUCTION DELAY [110+ ms QRS DURATION] NONSPECIFIC T-WAVE ABNORMALITY Compared to ECG 05/14/2018 22:17:20 Intraventricular conduction delay now present T-wave abnormality now present Sinus rhythm no longer present /store/S0/[id number]
[2024-06-11 10:44] LABS: Basophils # (Auto) 0.1 Thou/mm3 (0.0-0.2); Basophils % (Auto) 1 % (0-2.5); Eosinophils # (Auto) 0.1 Thou/mm3 (0.0-0.5); Eosinophils % (Auto) 2 % (0-10); Hemoglobin 13.7 g/dL (13.5-16.0); Immature Granulocytes % (Auto) 0 % (0-0); Immature Granulocytes Auto 0.03 Thou/mm3 (0.00-0.00); Lymphocytes # (Auto) 1.6 Thou/mm3 (1.0-4.8); Lymphocytes % (Auto) 22 % (10-50); Mean Corpuscular HGB Conc 31.9 g/dl (31.0-37.0); Mean Corpuscular Hemoglobin 26.1 pg (25.0-35.0); Mean Corpuscular Volume 82 fL (80-100); Monocytes # (Auto) 0.8 Thou/mm3 (0.0-0.8); Monocytes % (Auto) 11 % (0-12); Neutrophils # (Auto) 4.7 Thou/mm3 (1.8-7.7); Neutrophils % (Auto) 64 % (37-80); Nucleated Red Blood Cell % 0 /100 WBC (0); Platelet Count 248 Thou/mm3 (140-440); RDW Standard Deviation 39.8 fL (35.1-43.9); Red Blood Count 5.24 Miln/mm3 (4.50-5.90); White Blood Count 7.4 Thou/mm3 (3.8-10.6)
[2024-06-11 10:50] LABS: INR 0.9 (0.9-1.3); Partial Thromboplastin Time 25.1 Seconds (22.0-36.0); Prothrombin Time 10.4 Seconds (9.0-12.2)
[2024-06-11 11:39] LABS: Alanine Aminotransferase 19 U/L (10-49); Albumin, Serum 4.1 gm/dL (3.5-5.0); Alkaline Phosphatase 72 U/L (46-116); Anion Gap 9 (7-16); Aspartate Amino Transferase 21 U/L (0-34); BUN/Creatinine Ratio 21 Ratio (12-20); Bilirubin,Total 0.4 mg/dL (0.3-1.2); Blood Urea Nitrogen 23 mg/dL (9-23); Calcium 9.7 mg/dL (8.3-10.6); Calcium (Corrected) 9.7 mg/dL (8.5-10.1); Carbon Dioxide 24.4 mMol/L (20.0-31.0); Chloride 103 mMol/L (98-107); Creatinine (Component) 1.1 mg/dL (0.6-1.3); Globulin 2.1 gm/dL (2.3-3.5); Glucose 117 mg/dL (74-106); Osmolality,Calculated 276 (275-295); Potassium 4.5 mMol/L (3.4-5.1); Sodium 136 mMol/L (136-145); Total Protein 6.2 gm/dL (5.7-8.2); eGFR > 60 See Note
== END | disposition home or self-care (01) ==
LOC: COPL 09:15
PROVIDERS: PCP Family Medicine; Referring Provider Surgery Vascular Surgery; Visit Provider Surgery Vascular Surgery
DX: Z01.818 Encounter for other preprocedural examination (principal); I70.213 Atherosclerosis of native arteries of extremities with intermittent claudication, bilateral legs
CPT/HCPCS: 36415; 80053; 85025; 85610; 85730; 93005

== ENCOUNTER → 2024-06-14 | Outpatient (CLI) | payer MEDICARE, MEDICAID, SELFPAY | END | disposition home or self-care (01) | LOC: SWHD 09:59 | PROVIDERS: PCP Family Medicine; Referring Provider Family Medicine; Visit Provider Student in an Organized Health Care Education/Training Program | DX: E11.621 Type 2 diabetes mellitus with foot ulcer (principal); L97.522 Non-pressure chronic ulcer of other part of left foot with fat layer exposed; S90.822A Blister (nonthermal), left foot, initial encounter; M86.172 Other acute osteomyelitis, left ankle and foot; Z90.01 Acquired absence of eye; I25.10 Atherosclerotic heart disease of native coronary artery without angina pectoris; I73.9 Peripheral vascular disease, unspecified; D64.9 Anemia, unspecified; E11.40 Type 2 diabetes mellitus with diabetic neuropathy, unspecified; Z97.0 Presence of artificial eye; Z79.4 Long term (current) use of insulin; Z79.84 Long term (current) use of oral hypoglycemic drugs | CPT/HCPCS: 99213; A9270; G0463 ==

== ENCOUNTER → 2024-06-21 | Outpatient (CLI) | payer MEDICARE, MEDICAID, SELFPAY | END | disposition home or self-care (01) | PROVIDERS: PCP Family Medicine; Referring Provider Family Medicine; Visit Provider Physician Assistant | DX: E11.621 Type 2 diabetes mellitus with foot ulcer (principal); L97.522 Non-pressure chronic ulcer of other part of left foot with fat layer exposed; S90.822A Blister (nonthermal), left foot, initial encounter; X58.XXXA Exposure to other specified factors, initial encounter; M86.172 Other acute osteomyelitis, left ankle and foot; Z90.01 Acquired absence of eye; I25.10 Atherosclerotic heart disease of native coronary artery without angina pectoris; I73.9 Peripheral vascular disease, unspecified; D64.9 Anemia, unspecified; E11.40 Type 2 diabetes mellitus with diabetic neuropathy, unspecified; Z79.4 Long term (current) use of insulin; Z79.84 Long term (current) use of oral hypoglycemic drugs | CPT/HCPCS: 99213; A9270; G0463 ==

== ENCOUNTER → 2024-06-28 | Outpatient (CLI) | payer MEDICARE, MEDICAID, SELFPAY | END | disposition home or self-care (01) | LOC: SWHD 10:07 | PROVIDERS: PCP Family Medicine; Referring Provider Family Medicine; Visit Provider Surgery | DX: E11.621 Type 2 diabetes mellitus with foot ulcer (principal); L97.522 Non-pressure chronic ulcer of other part of left foot with fat layer exposed; S90.822A Blister (nonthermal), left foot, initial encounter; X58.XXXA Exposure to other specified factors, initial encounter; M86.172 Other acute osteomyelitis, left ankle and foot; Z90.01 Acquired absence of eye; I25.10 Atherosclerotic heart disease of native coronary artery without angina pectoris; I73.9 Peripheral vascular disease, unspecified; D64.9 Anemia, unspecified; E11.40 Type 2 diabetes mellitus with diabetic neuropathy, unspecified; Z79.4 Long term (current) use of insulin; Z79.84 Long term (current) use of oral hypoglycemic drugs | CPT/HCPCS: 99213; A9270; G0463 ==

== ENCOUNTER → 2024-07-02 | Outpatient (CLI) | payer MEDICARE, MEDICAID, SELFPAY ==
--- NOTE | 2024-07-02 10:07 | EKG_ITS ---
[facility] Test Date: 2024-07-02 Pat Name: GREGORIA GANDARA Department: Room: - Gender: Male Director Industrial Relations: HANNAH : 1975 Requested By: Sherman Currie Order Number: [id number] Reading MD: Sherman Currie Measurements Intervals [place] Rate: 52 P: 32 DC: 187 QRS: 33 QRSD: 97 T: 48 QT: 399 QTc: 374 Interpretive Statements SINUS BRADYCARDIA NONSPECIFIC T-WAVE ABNORMALITY Compared to ECG 06/11/2024 10:38:49 Intraventricular conduction delay no longer present T-wave abnormality still present /store/S0/[id number]
[2024-07-02 10:37] LABS: Basophils # (Auto) 0.1 Thou/mm3 (0.0-0.2); Basophils % (Auto) 1 % (0-2.5); Eosinophils # (Auto) 0.2 Thou/mm3 (0.0-0.5); Eosinophils % (Auto) 2 % (0-10); Hematocrit 44.4 % (41.0-53.0); Hemoglobin 14.2 g/dL (13.5-16.0); Immature Granulocytes % (Auto) 1 % (0-0); Immature Granulocytes Auto 0.04 Thou/mm3 (0.00-0.00); Lymphocytes # (Auto) 1.5 Thou/mm3 (1.0-4.8); Lymphocytes % (Auto) 21 % (10-50); Mean Corpuscular Hemoglobin 26.7 pg (25.0-35.0); Mean Corpuscular Volume 84 fL (80-100); Monocytes # (Auto) 0.8 Thou/mm3 (0.0-0.8); Monocytes % (Auto) 12 % (0-12); Neutrophils # (Auto) 4.5 Thou/mm3 (1.8-7.7); Neutrophils % (Auto) 63 % (37-80); Nucleated Red Blood Cell % 0 /100 WBC (0); Platelet Count 259 Thou/mm3 (140-440); RDW Standard Deviation 40.6 fL (35.1-43.9); Red Blood Count 5.32 Miln/mm3 (4.50-5.90); White Blood Count 7.1 Thou/mm3 (3.8-10.6)
[2024-07-02 10:42] LABS: Partial Thromboplastin Time 26.8 Seconds (22.0-36.0); Prothrombin Time 10.6 Seconds (9.0-12.2)
[2024-07-02 10:48] LABS: Alanine Aminotransferase 23 U/L (10-49); Albumin, Serum 4.5 gm/dL (3.5-5.0); Albumin/Globulin Ratio 1.9 (1.2-2.2); Alkaline Phosphatase 91 U/L (46-116); Anion Gap 8 (7-16); Aspartate Amino Transferase 22 U/L (0-34); BUN/Creatinine Ratio 19 Ratio (12-20); Bilirubin,Total 0.4 mg/dL (0.3-1.2); Blood Urea Nitrogen 21 mg/dL (9-23); Calcium 10.2 mg/dL (8.3-10.6); Calcium (Corrected) 10.2 mg/dL (8.5-10.1); Carbon Dioxide 24.4 mMol/L (20.0-31.0); Chloride 102 mMol/L (98-107); Creatinine (Component) 1.1 mg/dL (0.6-1.3); Globulin 2.4 gm/dL (2.3-3.5); Glucose 185 mg/dL (74-106); Osmolality,Calculated 276 (275-295); Sodium 134 mMol/L (136-145); Total Protein 6.9 gm/dL (5.7-8.2); eGFR > 60 See Note
== END | disposition home or self-care (01) ==
LOC: COPL 09:30
PROVIDERS: PCP Internal Medicine; Referring Provider Surgery Vascular Surgery; Visit Provider Surgery Vascular Surgery
DX: Z01.818 Encounter for other preprocedural examination (principal); I70.213 Atherosclerosis of native arteries of extremities with intermittent claudication, bilateral legs
CPT/HCPCS: 36415; 80053; 85025; 85610; 85730; 93005

== ENCOUNTER → 2024-07-05 | Outpatient (CLI) | payer MEDICARE, MEDICAID, SELFPAY | END | disposition home or self-care (01) | LOC: SWHD 09:32 | PROVIDERS: PCP Family Medicine; Referring Provider Family Medicine; Visit Provider Physician Assistant | DX: E11.621 Type 2 diabetes mellitus with foot ulcer (principal); L97.522 Non-pressure chronic ulcer of other part of left foot with fat layer exposed; S90.822A Blister (nonthermal), left foot, initial encounter; X58.XXXA Exposure to other specified factors, initial encounter; M86.172 Other acute osteomyelitis, left ankle and foot; Z90.01 Acquired absence of eye; I25.10 Atherosclerotic heart disease of native coronary artery without angina pectoris; I73.9 Peripheral vascular disease, unspecified; D64.9 Anemia, unspecified; E11.40 Type 2 diabetes mellitus with diabetic neuropathy, unspecified; Z79.4 Long term (current) use of insulin; Z79.84 Long term (current) use of oral hypoglycemic drugs | CPT/HCPCS: 17250; A9270 ==

== ENCOUNTER → 2024-07-12 | Outpatient (CLI) | payer MEDICARE, MEDICAID, SELFPAY | END | disposition home or self-care (01) | LOC: SWHD 09:16 | PROVIDERS: PCP Family Medicine; Referring Provider Family Medicine; Visit Provider Surgery | DX: E11.621 Type 2 diabetes mellitus with foot ulcer (principal); L97.522 Non-pressure chronic ulcer of other part of left foot with fat layer exposed; S90.822A Blister (nonthermal), left foot, initial encounter; X58.XXXA Exposure to other specified factors, initial encounter; M86.172 Other acute osteomyelitis, left ankle and foot; E11.40 Type 2 diabetes mellitus with diabetic neuropathy, unspecified; Z90.01 Acquired absence of eye; I25.10 Atherosclerotic heart disease of native coronary artery without angina pectoris; I73.9 Peripheral vascular disease, unspecified; D64.9 Anemia, unspecified; E11.51 Type 2 diabetes mellitus with diabetic peripheral angiopathy without gangrene; Z79.84 Long term (current) use of oral hypoglycemic drugs; Z79.4 Long term (current) use of insulin | CPT/HCPCS: 99213; A9270; G0463 ==

== ENCOUNTER → 2024-07-17 | Outpatient (CLI) | payer MEDICARE, MEDICAID, SELFPAY ==
--- NOTE | 2024-07-17 09:00 | XR_ITS ---
Examination: MRI left foot, without contrast Date and time of exam: July 17, 2024 1034 hours Comparison January 13, 2024 INDICATIONS: Foot numbness, nonhealing wounds involving the foot, diagnosis type 2 diabetes Technique: Multiple axial sagittal and coronal images of the right foot have been obtained with the Siemens high-resolution 1.5 Mery MRI scanner. Images obtained include T2-weighted fat-suppressed sagittal sections, TR 3500, TE 46, T2 weighted coronal fat suppressed images, TR 3050, TE 84, T2-weighted transverse fat suppressed images, TR 3260, TE 63, proton density transverse images, TR 4720 TE 46, and T1 weighted coronal images, TR 560, TE 13. Findings: Magnetic susceptibility artifact calcaneus No pathologic fracture Soft tissue swelling about the first and second digits No soft tissue abscess No angel cortical bone destruction IMPRESSION: Soft tissue swelling about the first and second digits No soft tissue abscess Negative for osteomyelitis
== END | disposition home or self-care (01) ==
PROVIDERS: Referring Provider Student in an Organized Health Care Education/Training Program; Visit Provider Student in an Organized Health Care Education/Training Program
DX: M25.475 Effusion, left foot (principal)
CPT/HCPCS: 73718

== ENCOUNTER → 2024-07-26 | Outpatient (CLI) | payer MEDICARE, MEDICAID, SELFPAY ==
[2024-07-26 10:37] LABS: Basophils # (Auto) 0.1 Thou/mm3 (0.0-0.2); Basophils % (Auto) 1 % (0-2.5); Eosinophils # (Auto) 0.2 Thou/mm3 (0.0-0.5); Eosinophils % (Auto) 2 % (0-10); Hematocrit 42.8 % (41.0-53.0); Immature Granulocytes % (Auto) 1 % (0-0); Immature Granulocytes Auto 0.04 Thou/mm3 (0.00-0.00); Lymphocytes # (Auto) 1.6 Thou/mm3 (1.0-4.8); Lymphocytes % (Auto) 23 % (10-50); Mean Corpuscular HGB Conc 32.7 g/dl (31.0-37.0); Mean Corpuscular Hemoglobin 26.4 pg (25.0-35.0); Mean Corpuscular Volume 81 fL (80-100); Monocytes % (Auto) 13 % (0-12); Neutrophils # (Auto) 4.3 Thou/mm3 (1.8-7.7); Neutrophils % (Auto) 60 % (37-80); Nucleated Red Blood Cell % 0 /100 WBC (0); Platelet Count 250 Thou/mm3 (140-440); RDW Standard Deviation 37.7 fL (35.1-43.9); White Blood Count 7.2 Thou/mm3 (3.8-10.6)
[2024-07-26 10:55] LABS: Partial Thromboplastin Time 27.8 Seconds (22.0-36.0); Prothrombin Time 10.9 Seconds (9.0-12.2)
[2024-07-26 11:05] LABS: Alanine Aminotransferase 36 U/L (10-49); Albumin, Serum 4.3 gm/dL (3.5-5.0); Albumin/Globulin Ratio 1.7 (1.2-2.2); Alkaline Phosphatase 64 U/L (46-116); Anion Gap 11 (7-16); Aspartate Amino Transferase 46 U/L (0-34); BUN/Creatinine Ratio 14 Ratio (12-20); Bilirubin,Total 0.4 mg/dL (0.3-1.2); Blood Urea Nitrogen 17 mg/dL (9-23); Calcium 9.2 mg/dL (8.3-10.6); Calcium (Corrected) 9.2 mg/dL (8.5-10.1); Carbon Dioxide 23.3 mMol/L (20.0-31.0); Chloride 105 mMol/L (98-107); Creatinine (Component) 1.2 mg/dL (0.6-1.3); Globulin 2.5 gm/dL (2.3-3.5); Glucose 78 mg/dL (74-106); Osmolality,Calculated 278 (275-295); Sodium 139 mMol/L (136-145); Total Protein 6.8 gm/dL (5.7-8.2); eGFR > 60 See Note
== END | disposition home or self-care (01) ==
PROVIDERS: PCP Family Medicine; Referring Provider Surgery Vascular Surgery; Visit Provider Surgery Vascular Surgery
DX: Z01.818 Encounter for other preprocedural examination (principal); I70.213 Atherosclerosis of native arteries of extremities with intermittent claudication, bilateral legs
CPT/HCPCS: 36415; 80053; 85025; 85610; 85730

== ENCOUNTER → 2024-08-07 | Outpatient (CLI) | payer MEDICARE, MEDICAID, SELFPAY | END | disposition home or self-care (01) | LOC: SWHD 10:48 | PROVIDERS: PCP Family Medicine; Referring Provider Family Medicine; Visit Provider Surgery | DX: E11.621 Type 2 diabetes mellitus with foot ulcer (principal); L97.522 Non-pressure chronic ulcer of other part of left foot with fat layer exposed; S90.822A Blister (nonthermal), left foot, initial encounter; X58.XXXA Exposure to other specified factors, initial encounter; M86.172 Other acute osteomyelitis, left ankle and foot; E11.40 Type 2 diabetes mellitus with diabetic neuropathy, unspecified; Z90.01 Acquired absence of eye; I25.10 Atherosclerotic heart disease of native coronary artery without angina pectoris; I73.9 Peripheral vascular disease, unspecified; D64.9 Anemia, unspecified; E11.51 Type 2 diabetes mellitus with diabetic peripheral angiopathy without gangrene; Z79.84 Long term (current) use of oral hypoglycemic drugs; Z79.4 Long term (current) use of insulin; R60.0 Localized edema | CPT/HCPCS: 99213; A9270; G0463 ==

== ENCOUNTER → 2024-08-14 | Outpatient (CLI) | payer MEDICARE, MEDICAID, SELFPAY ==
[2024-08-14 09:13] LABS: Collection Type, Urine Clean Catch; Squamous Epithelial Cell,Urine 0 /hpf (0-5)
[2024-08-14 09:31] LABS: Basophils # (Auto) 0.1 Thou/mm3 (0.0-0.2); Basophils % (Auto) 1 % (0-2.5); Eosinophils # (Auto) 0.1 Thou/mm3 (0.0-0.5); Eosinophils % (Auto) 2 % (0-10); Hematocrit 42.6 % (41.0-53.0); Immature Granulocytes % (Auto) 1 % (0-0); Immature Granulocytes Auto 0.07 Thou/mm3 (0.00-0.00); Lymphocytes # (Auto) 1.8 Thou/mm3 (1.0-4.8); Lymphocytes % (Auto) 22 % (10-50); Mean Corpuscular HGB Conc 32.9 g/dl (31.0-37.0); Mean Corpuscular Hemoglobin 26.4 pg (25.0-35.0); Mean Corpuscular Volume 80 fL (80-100); Monocytes # (Auto) 0.9 Thou/mm3 (0.0-0.8); Monocytes % (Auto) 11 % (0-12); Neutrophils # (Auto) 5.1 Thou/mm3 (1.8-7.7); Neutrophils % (Auto) 64 % (37-80); Nucleated Red Blood Cell % 0 /100 WBC (0); Platelet Count 267 Thou/mm3 (140-440); RDW Standard Deviation 38.3 fL (35.1-43.9); Red Blood Count 5.31 Miln/mm3 (4.50-5.90); White Blood Count 8.1 Thou/mm3 (3.8-10.6)
[2024-08-14 09:36] LABS: Bilirubin,Urine Negative (Negative); Blood,Urine Negative (Negative); Clarity,Urine Clear (Clear/Hazy); Color,Urine Colorless (Lt Yel-Yel); Glucose, Urine Negative (Negative); Ketones,Urine Negative (Negative); Leukocyte Esterase,Urine Negative (Negative); Nitrite,Urine Negative (Negative); Protein,Urine Negative (Neg - Trace); RBC,Urine 2 /hpf (0-3); Specific Gravity,Urine 1.008 (1.001-1.035); Urobilinogen,Urine Negative mg/dL (0.0-1.0); WBC,Urine 4 /hpf (0-5)
[2024-08-14 09:54] LABS: Albumin, Serum 4.3 gm/dL (3.5-5.0); Anion Gap 12 (7-16); BUN/Creatinine Ratio 14 Ratio (12-20); Blood Urea Nitrogen 18 mg/dL (9-23); Calcium 10.5 mg/dL (8.3-10.6); Calcium (Corrected) 10.5 mg/dL (8.5-10.1); Chloride 100 mMol/L (98-107); Creatinine (Component) 1.3 mg/dL (0.6-1.3); Glucose 109 mg/dL (74-106); Osmolality,Calculated 276 (275-295); Phosphorous 3.2 mg/dL (2.4-5.1); Potassium 4.1 mMol/L (3.4-5.1); Sodium 137 mMol/L (136-145); eGFR > 60 See Note
[2024-08-20 07:08] LABS: Tacrolimus,highly sensitive* 5.9 mcg/L (5.0-20.0)
== END | disposition home or self-care (01) ==
LOC: COPL 07:53
PROVIDERS: PCP Family Medicine; Referring Provider Internal Medicine Nephrology; Visit Provider Internal Medicine Nephrology
DX: Z94.0 Kidney transplant status (principal)
CPT/HCPCS: 36415; 80069; 80197; 81001; 85025

== ENCOUNTER → 2024-08-14 | Outpatient (CLI) | payer MEDICARE, MEDICAID, SELFPAY | END | disposition home or self-care (01) | LOC: SWHD 10:58 | PROVIDERS: PCP Family Medicine; Referring Provider Family Medicine; Visit Provider Surgery | DX: E11.621 Type 2 diabetes mellitus with foot ulcer (principal); L97.522 Non-pressure chronic ulcer of other part of left foot with fat layer exposed; S90.822A Blister (nonthermal), left foot, initial encounter; X58.XXXA Exposure to other specified factors, initial encounter; M86.172 Other acute osteomyelitis, left ankle and foot; E11.40 Type 2 diabetes mellitus with diabetic neuropathy, unspecified; Z90.01 Acquired absence of eye; I25.10 Atherosclerotic heart disease of native coronary artery without angina pectoris; I73.9 Peripheral vascular disease, unspecified; D64.9 Anemia, unspecified; E11.51 Type 2 diabetes mellitus with diabetic peripheral angiopathy without gangrene; Z79.84 Long term (current) use of oral hypoglycemic drugs; Z79.4 Long term (current) use of insulin | CPT/HCPCS: 99213; A9270; G0463 ==

== ENCOUNTER → 2024-08-28 | Outpatient (CLI) | payer MEDICARE, MEDICAID, SELFPAY | END | disposition home or self-care (01) | LOC: SWHD 10:06 | PROVIDERS: PCP Family Medicine; Referring Provider Family Medicine; Visit Provider Student in an Organized Health Care Education/Training Program | DX: E11.621 Type 2 diabetes mellitus with foot ulcer (principal); L97.522 Non-pressure chronic ulcer of other part of left foot with fat layer exposed; S90.822A Blister (nonthermal), left foot, initial encounter; X58.XXXA Exposure to other specified factors, initial encounter; M86.172 Other acute osteomyelitis, left ankle and foot; E11.40 Type 2 diabetes mellitus with diabetic neuropathy, unspecified; Z90.01 Acquired absence of eye; I25.10 Atherosclerotic heart disease of native coronary artery without angina pectoris; I73.9 Peripheral vascular disease, unspecified; D64.9 Anemia, unspecified; E11.51 Type 2 diabetes mellitus with diabetic peripheral angiopathy without gangrene; Z79.84 Long term (current) use of oral hypoglycemic drugs; Z79.4 Long term (current) use of insulin | CPT/HCPCS: 99214; A9270; G0463 ==

== ENCOUNTER → 2024-09-11 | Outpatient (CLI) | payer MEDICARE, MEDICAID, SELFPAY | END | disposition home or self-care (01) | LOC: SWHD 09:48 | PROVIDERS: PCP Family Medicine; Referring Provider Family Medicine; Visit Provider Student in an Organized Health Care Education/Training Program | DX: E11.621 Type 2 diabetes mellitus with foot ulcer (principal); L97.522 Non-pressure chronic ulcer of other part of left foot with fat layer exposed; S90.822A Blister (nonthermal), left foot, initial encounter; X58.XXXA Exposure to other specified factors, initial encounter; M86.172 Other acute osteomyelitis, left ankle and foot; E11.40 Type 2 diabetes mellitus with diabetic neuropathy, unspecified; Z90.01 Acquired absence of eye; I25.10 Atherosclerotic heart disease of native coronary artery without angina pectoris; I73.9 Peripheral vascular disease, unspecified; D64.9 Anemia, unspecified; E11.51 Type 2 diabetes mellitus with diabetic peripheral angiopathy without gangrene; Z79.84 Long term (current) use of oral hypoglycemic drugs; Z79.4 Long term (current) use of insulin | CPT/HCPCS: 99213; G0463 ==

== ENCOUNTER → 2024-10-09 | Outpatient (CLI) | payer MEDICARE, MEDICAID, SELFPAY | END | disposition home or self-care (01) | LOC: SWHD 10:07 | PROVIDERS: PCP Family Medicine; Referring Provider Family Medicine; Visit Provider Student in an Organized Health Care Education/Training Program | DX: E11.621 Type 2 diabetes mellitus with foot ulcer (principal); L97.522 Non-pressure chronic ulcer of other part of left foot with fat layer exposed; S90.822A Blister (nonthermal), left foot, initial encounter; X58.XXXA Exposure to other specified factors, initial encounter; M86.172 Other acute osteomyelitis, left ankle and foot; E11.40 Type 2 diabetes mellitus with diabetic neuropathy, unspecified; Z90.01 Acquired absence of eye; I25.10 Atherosclerotic heart disease of native coronary artery without angina pectoris; I73.9 Peripheral vascular disease, unspecified; D64.9 Anemia, unspecified; E11.51 Type 2 diabetes mellitus with diabetic peripheral angiopathy without gangrene; Z79.84 Long term (current) use of oral hypoglycemic drugs; Z79.4 Long term (current) use of insulin | CPT/HCPCS: 99212; G0463 ==